=== PATIENT | female | born 1945 | race Caucasian/White ===

== ENCOUNTER 2018-04-17 10:16 | Inpatient (IN) ==
[2018-05-20] MEDS ORDERED: Sodium Phosphate Inj 30 MMOL in Sodium Chlor 0.9% Inj 250 ML IV.SIG PRN ×2
[2018-05-20] MEDS ORDERED: Potassium Phosphate Inj 30 MMOL in Sodium Chlor 0.9% Inj 250 ML IV.SIG ONE ×2
[2018-05-20] MEDS ORDERED: Magnesium Sulfate Inj 2 GM in Sodium Chlor 0.9% Inj 96 ML IV.SIG ONE ×2
[2018-05-20] MEDS ORDERED: Potassium Chlor 20 mEq Premix 20 MEQ/100 ML PIGGYBACK IV.SIG SCH ×2
[2018-05-20] MEDS ORDERED: Potassium Bicarbonate 25 MEQ Effervescent Tablet PO PRN
[2018-05-20] MEDS ORDERED: Magnesium Sulfate Inj 4 GM in Sodium Chlor 0.9% Inj 92 ML IV.SIG ONE ×2
[2018-05-20] MEDS ORDERED: Morphine Inj 4 MG/ML Vial IV.PUSH PRN
[2018-05-20] MEDS ORDERED: Naloxone Inj 0.4 MG/ML Vial IV.PUSH PRN
[2018-05-20] MEDS ORDERED: Labetalol HCl Inj 100 MG/20 ML Vial IV.PUSH PRN
[2018-05-20] MEDS ORDERED: Dextrose 50% in Water 50 ML Vial IV.PUSH PRN
[2018-05-20] MEDS ORDERED: Potassium Phosphate 500 MG Soluble Tablet PO PRN ×2
[2018-05-20] MEDS ORDERED: Magnesium Oxide 400 MG Tablet PO ONE
[2018-05-20] MEDS ORDERED: Bisacodyl 10 MG Supp RECTAL PRN
[2018-05-20] MEDS ORDERED: Metoprolol Inj 5 MG/5 ML Vial IV.PUSH PRN (00:01)
[2018-05-20] MEDS ORDERED: Haloperidol Inj 5 MG/ML Ampul IV.PUSH PRN (00:01)
[2018-05-20] MEDS: Potassium Phos/Sodium Phos 250 MG Tablet NG/OG SCH ×3 (05:17→22:12)
[2018-05-20] MEDS: dilTIAZem 60 MG Tablet PO SCH ×3 (05:18→20:09)
[2018-05-20 06:05] LABS: Baso # (Auto) 0.1 th/mm3 (0.0-0.2); Baso % (Auto) 0.9 % (0.0-2.0); Eos # (Auto) 0.4 th/mm3 (0.0-0.4); Hematocrit 28.8 % (35.0-46.0); Hemoglobin 9.6 gm/dL (11.6-15.3); Lymph # (Auto) 2.1 th/mm3 (1.0-4.8); Lymph % (Auto) 21.8 % (9.0-44.0); Mean Corpuscular HGB Conc 33.5 % (32.0-36.0); Mean Corpuscular Volume 92.6 fL (80.0-100.0); Mean Platelet Volume 7.7 fL (7.0-11.0); Mono # (Auto) 0.9 th/mm3 (0.0-0.9); Mono % (Auto) 9.2 % (0.0-8.0); Neut # (Auto) 6.1 th/mm3 (1.8-7.7); Neut % (Auto) 64.1 % (16.0-70.0); Platelet Count 290 th/mm3 (150-450); Red Blood Count 3.11 mil/mm3 (4.00-5.30); Red Cell Distribution Width 17.9 % (11.6-17.2); White Blood Count 9.6 th/mm3 (4.0-11.0)
[2018-05-20] MEDS: Levothyroxine 75 MCG Tablet PO SCH (06:23)
[2018-05-20 06:27] LABS: Albumin 1.5 g/dL (3.4-5.0); Anion Gap 9 meq/L (5-15); Aspartate Aminotransferase 16 U/L (15-37); Blood Urea Nitrogen 28 mg/dL (7-18); Calcium 7.9 mg/dL (8.5-10.1); Carbon Dioxide 34.4 meq/L (21.0-32.0); Chloride 100 meq/L (98-107); Glomerular Filtration Rate 40 mL/min (>89); Glucose,Random 134 mg/dL (74-106); Magnesium 1.6 mg/dL (1.5-2.5); Potassium 3.4 meq/L (3.5-5.1); Sodium 143 meq/L (136-145)
[2018-05-20 06:31] LABS: Alanine Aminotransferase 18 U/L (10-53); Alkaline Phosphatase 102 U/L (45-117); Phosphorus 2.1 mg/dL (2.5-4.9); Total Protein 5.3 g/dL (6.4-8.2)
[2018-05-20] MEDS: Metoprolol Tartrate 50 MG Tablet PO SCH ×2 (08:07→22:09)
[2018-05-20] MEDS: Nystatin 100,000 UNITS/GM Powder 15 GM Bottle TOPICAL SCH ×2 (08:08→22:10)
[2018-05-20] MEDS: Heparin - SQ 10,000 UNITS/ML Vial SQ SCH ×2 (08:10→22:10)
[2018-05-20 08:21] LABS: Eosinophils 4 % (0-4); Lymphocytes 13 % (9-44); Monocytes 13 % (0-8); Myelocytes 2 % (0-0)
[2018-05-20 08:22] LABS: Ovalocytes 1+; Platelet Estimate Normal (Normal); Platelet Morphology Normal (Normal)
[2018-05-20] MEDS: Insulin NovoLOG Aspart Correctional Sugar Inj SQ SCH ×4 (08:22→22:10)
[2018-05-20] MEDS ORDERED: buPROPion 150 MG 12 HR Tablet PO SCH (09:00)
[2018-05-20] MEDS ORDERED: QUEtiapine 25 MG Tablet PO PRN (09:00)
--- NOTE | 2018-05-20 10:35 | P.PNNEU ---
Subjective Subjective Comments: No acute events reported Active Medications: Active Medications Generic Name Dose Route Start Last Admin Trade Name Freq PRN Reason Stop Dose Admin Acetaminophen 650 mg 05/20/18 00:00 Tylenol PO Q4H PRN SEE LABEL COMMENTS Hydrocodone Bitart/Acetaminophen 1 tab 05/20/18 00:00 [place] 5/325 PO Q6H PRN PAIN 2 TO 5 Al Hydroxide/Mg Hydroxide 30 ml 05/20/18 00:00 Milk Of Magnesia Liq PO Q12H PRN MILD CONSTIPATION Albuterol 1 ampul 05/20/18 00:00 Duoneb Neb (Prn) NEB Q2HR NEB PRN SHORT OF BREATH Apixaban 5 mg 05/20/18 09:00 05/20/18 08:07 Eliquis PO 5 mg BID IAN Administration Bisacodyl 10 mg 05/20/18 00:00 Dulcolax Supp RECTAL Q24H PRN SEVERE CONSITIPATION Bupropion HCl 150 mg 05/20/18 09:00 Wellbutrin Sr PO DAILY IAN Buspirone HCl 5 mg 05/20/18 09:00 Buspar PO BID IAN Dextrose 50 ml 05/20/18 00:00 D50w Vial IV.PUSH UNSCH PRN PER HYPOGLYCEMIA PROTOCOL Diltiazem HCl 60 mg 05/20/18 00:00 05/20/18 05:18 Cardizem PO 60 mg Q6H IAN Administration Diphenhydramine HCl 25 mg 05/20/18 00:00 Benadryl PO Q4H PRN SEE LABEL COMMENTS Furosemide 40 mg 05/20/18 09:00 05/20/18 08:07 Lasix Inj IV.PUSH 40 mg DAILY IAN Administration Glucagon 1 mg 05/20/18 00:00 Glucagon Inj OTHER PRN PRN for Hypoglycemia Protocol Haloperidol Lactate 5 mg 05/20/18 00:01 Haldol Inj IV.PUSH Q1H PRN ANXIETY AND/OR AGITATION Heparin Sodium (Porcine) 5,000 units 05/20/18 09:00 05/20/18 08:10 Heparin Inj SQ 5,000 units BID IAN Administration Cefepime HCl 1,000 mg/ Sodium 100 mls @ 200 mls/hr 05/20/18 00:00 Chloride IV.SIG Q12H IAN Linezolid 300 mls @ 300 mls/hr 05/20/18 08:00 05/20/18 08:15 Zyvox 600 Mg Premix IV.SIG 05/23/18 19:59 300 mls/hr Q12H IAN Administration Sodium Phosphate 30 mmol/ 260 mls @ 43.333 mls/hr 05/20/18 00:00 Sodium Chloride IV.SIG UNSCH PRN SEE LABEL COMMENTS Insulin Aspart 0 unit 05/20/18 08:00 05/20/18 08:22 Novolog Insulin Suppl Scale Inj SQ 1 unit ACHS IAN Administration Protocol Labetalol HCl 10 mg 05/20/18 00:00 Trandate Inj IV.PUSH Q4H PRN HR > 110 , SBP > 110 Levothyroxine Sodium 75 mcg 05/20/18 07:00 05/20/18 06:23 Synthroid PO 75 mcg DAILY@0700 IAN Administration Metoprolol Tartrate 5 mg 05/20/18 00:01 Lopressor Inj IV.PUSH Q6H PRN FOR HR > 120 IF UNABLE PO Metoprolol Tartrate 50 mg 05/20/18 09:00 05/20/18 08:07 Lopressor PO 50 mg BID IAN Administration Montelukast Sodium 10 mg 05/20/18 21:00 Singulair PO HS IAN Morphine Sulfate 2 mg 05/20/18 00:00 Morphine Inj IV.PUSH Q4H PRN BREAKTHROUGH PAIN 6-10 Naloxone HCl 0.4 mg 05/20/18 00:00 Narcan Inj IV.PUSH UNSCH PRN SEE DOSE INSTRUCTIONS Nystatin 1 applicatio 05/20/18 09:00 05/20/18 08:08 Mycostatin Powder TOPICAL 1 applicatio Q12H IAN Administration Pantoprazole Sodium 40 mg 05/20/18 09:00 05/20/18 08:07 Protonix PO 40 mg DAILY IAN Administration Potassium Bicarbonate 50 meq 05/20/18 00:00 Effer-K PO UNSCH PRN Potassium 3.3-3.5 mEq/L Potassium Chloride 40 meq 05/20/18 00:00 Kcl 40 Meq/30 Ml Liq PO UNSCH PRN NEEDED Potassium Phos/Sodium Phos 250 mg 05/20/18 06:00 05/20/18 05:17 K-Phos Neutral NG/OG 250 mg Q8HR IAN Administration Potassium Phosphate 2,000 mg 05/20/18 00:00 K-Phos Original PO Q4H PRN Phosphorus Less Than 2.5 mg/dL Potassium Phosphate 2,000 mg 05/20/18 00:00 K-Phos Original PO UNSCH PRN NEEDED Quetiapine Fumarate 25 mg 05/20/18 09:00 Seroquel PO BID@0900,1200 PRN AGITATION AND/OR HALLUCINATION Quetiapine Fumarate 50 mg 05/20/18 21:00 Seroquel PO HS IAN Trazodone HCl 150 mg 05/20/18 21:00 Desyrel PO HS IAN Vitamin D 2,000 unit 05/20/18 09:00 05/20/18 08:06 Vitamin D3 PO 2,000 unit DAILY IAN Administration Ziprasidone 10 mg 05/20/18 00:00 Geodon Inj IM Q12H PRN AGITATION Allergies/Adverse Reactions: Allergies Allergy/AdvReac Type Severity Reaction Status Date / Time aspirin Allergy Severe wheezing, Verified 04/17/18 23:08 runny nose, watery eyes Shellfish Allergy Unknown Uncoded 04/17/18 23:04 Physical Exam Vital signs: Vital Signs 05/20/18 02:00 05/20/18 04:49 Pulse Rate 98 H Pulse Oximetry 96 Intake & Output 05/19/18 05/20/18 05/20/18 18:59 06:59 18:59 Other: Date of Last Bowel Movement 05/20/18 Narrative: awake alert follows commands names my glasses moves all 4 ext well Objective Laboratory Results - last 24 hr 05/16/18 05/16/18 05/17/18 13:30 14:30 05:32 WBC RBC Hgb Hct MCV MCH MCHC RDW Plt Count MPV Prelim Diff (Auto) Neut % (Auto) Lymph % (Auto) [place] % (Auto) Eos % (Auto) Baso % (Auto) Neut # (Auto) Lymph # (Auto) [place] # (Auto) Eos # (Auto) Baso # (Auto) CBC Comment WBC Differential Total Counted Neutrophils % (Manual) Seg Neuts % (Manual) Band Neutrophils % Band Neuts % (Manual) Lymphocytes % Lymphocytes % (Manual) Monocytes % Monocytes % (Manual) Eosinophils % Eosinophils % (Manual) Myelocytes % (Man) Neutrophils # (Manual) Abs Neuts (Manual) Metamyelocytes Myelocytes Differential Comment Platelet Estimate Platelet Morphology Plt Morphology Comment Ovalocytes Puncture Site Patient Temperature HCO3 Base Excess O2 Saturation ABG pH ABG pCO2 ABG pO2 ABG O2 Content ABG Carboxyhemoglobin ABG Methemoglobin Hemoglobin O2 Delivery Device Liter Flow Vent Setting Inspired O2 Sodium 146 H Potassium 3.4 L D Chloride 106 Carbon Dioxide 30.0 Anion Gap 10 BUN 26 H Creatinine 1.22 H Estimated GFR 44 L POC Glucose Random Glucose 132 H Calcium 7.7 L Phosphorus Magnesium Total Bilirubin AST ALT Alkaline Phosphatase Ammonia Total Protein Albumin Vitamin B12 Free T4 1.04 Free T3 pg/dL 1.26 L TSH 3rd Generation 27.500 H Urine Color YELLOW Urine Turbidity TURBID Urine pH 5.0 Ur Specific [place] 1.020 Urine Protein 100 H Urine Glucose (UA) NEG Urine Ketones NEG Urine Occult Blood MOD H Urine Nitrite NEG Urine Bilirubin NEG Urine Urobilinogen 2.0 H Ur Leukocyte Esterase MOD H Urine RBC 74 H Urine WBC Urine WBC Clumps MANY H Ur Squamous Epith Cells 4 Ur Transition Epith Cell 3 Urine Bacteria MANY H Urine Yeast (Budding) MOD H Micro UA Comment CULTURE INDICATED 05/18/18 05/18/18 05/18/18 00:41 07:12 07:12 WBC 12.8 H RBC 3.19 L Hgb 9.6 L Hct 30.1 L MCV 94.3 MCH 30.1 MCHC 31.9 L RDW 18.2 H Plt Count 283 MPV 7.4 Prelim Diff (Auto) Neut % (Auto) 80.3 H Lymph % (Auto) 11.1 [place] % (Auto) 6.1 Eos % (Auto) 2.1 Baso % (Auto) 0.4 Neut # (Auto) 10.3 H Lymph # (Auto) 1.4 [place] # (Auto) 0.8 Eos # (Auto) 0.3 Baso # (Auto) 0.1 CBC Comment AUTO DIFF WBC Differential Total Counted 100 Neutrophils % (Manual) 86 H Seg Neuts % (Manual) Band Neutrophils % 1 Band Neuts % (Manual) Lymphocytes % 6 L Lymphocytes % (Manual) Monocytes % 3 Monocytes % (Manual) Eosinophils % 3 Eosinophils % (Manual) Myelocytes % (Man) Neutrophils # (Manual) 11.3 H Abs Neuts (Manual) Metamyelocytes Myelocytes 1 H Differential Comment FINAL DIFF MANUAL Platelet Estimate NORMAL Platelet Morphology Plt Morphology Comment NORMAL Ovalocytes Puncture Site RT RADIAL Patient Temperature 98.6 HCO3 31 H Base Excess 6.6 H O2 Saturation 95 ABG pH 7.41 ABG pCO2 50 H ABG pO2 87 ABG O2 Content 12.6 ABG Carboxyhemoglobin 1.2 ABG Methemoglobin 1.1 Hemoglobin 9.4 L O2 Delivery Device BiPAP Liter Flow Vent Setting 16 IPAP/8 EPAP Inspired O2 35 Sodium 145 Potassium 3.6 Chloride 104 Carbon Dioxide 34.0 H Anion Gap 7 BUN 29 H Creatinine 1.37 H Estimated GFR 38 L POC Glucose Random Glucose 118 H Calcium 7.9 L Phosphorus 2.1 L Magnesium 1.6 Total Bilirubin 0.3 AST 13 L ALT 16 Alkaline Phosphatase 109 Ammonia Total Protein 5.3 L Albumin 1.5 L Vitamin B12 Free T4 Free T3 pg/dL TSH 3rd Generation Urine Color Urine Turbidity Urine pH Ur Specific [place] Urine Protein Urine Glucose (UA) Urine Ketones Urine Occult Blood Urine Nitrite Urine Bilirubin Urine Urobilinogen Ur Leukocyte Esterase Urine RBC Urine WBC Urine WBC Clumps Ur Squamous Epith Cells Ur Transition Epith Cell Urine Bacteria Urine Yeast (Budding) Micro UA Comment 05/18/18 05/19/18 05/19/18 21:20 03:55 03:55 WBC 10.3 RBC 2.95 L Hgb 9.1 L Hct 27.4 L MCV 93.0 MCH 30.8 MCHC 33.1 RDW 17.8 H Plt Count 253 MPV 7.5 Prelim Diff (Auto) Neut % (Auto) 72.5 H Lymph % (Auto) 16.8 [place] % (Auto) 7.0 Eos % (Auto) 2.8 Baso % (Auto) 0.9 Neut # (Auto) 7.5 Lymph # (Auto) 1.7 [place] # (Auto) 0.7 Eos # (Auto) 0.3 Baso # (Auto) 0.1 CBC Comment AUTO DIFF WBC Differential Total Counted 100 Neutrophils % (Manual) 80 H Seg Neuts % (Manual) Band Neutrophils % Band Neuts % (Manual) Lymphocytes % 11 Lymphocytes % (Manual) Monocytes % 4 Monocytes % (Manual) Eosinophils % 1 Eosinophils % (Manual) Myelocytes % (Man) Neutrophils # (Manual) 8.7 H Abs Neuts (Manual) Metamyelocytes 1 Myelocytes 3 H Differential Comment FINAL DIFF MANUAL Platelet Estimate NORMAL Platelet Morphology Plt Morphology Comment NORMAL Ovalocytes Puncture Site Patient Temperature HCO3 Base Excess O2 Saturation ABG pH ABG pCO2 ABG pO2 ABG O2 Content ABG Carboxyhemoglobin ABG Methemoglobin Hemoglobin O2 Delivery Device Liter Flow Vent Setting Inspired O2 Sodium 144 Potassium 3.6 Chloride 102 Carbon Dioxide 34.7 H Anion Gap 7 BUN 31 H Creatinine 1.38 H Estimated GFR 38 L POC Glucose Random Glucose 102 Calcium 7.7 L Phosphorus 1.5 L Magnesium 1.4 L Total Bilirubin AST ALT Alkaline Phosphatase Ammonia 24 Total Protein Albumin Vitamin B12 Free T4 Free T3 pg/dL TSH 3rd Generation Urine Color Urine Turbidity Urine pH Ur Specific [place] Urine Protein Urine Glucose (UA) Urine Ketones Urine Occult Blood Urine Nitrite Urine Bilirubin Urine Urobilinogen Ur Leukocyte Esterase Urine RBC Urine WBC Urine WBC Clumps Ur Squamous Epith Cells Ur Transition Epith Cell Urine Bacteria Urine Yeast (Budding) Micro UA Comment 05/19/18 05/19/18 05/19/18 10:45 12:10 12:10 WBC RBC Hgb Hct MCV MCH MCHC RDW Plt Count MPV Prelim Diff (Auto) Neut % (Auto) Lymph % (Auto) [place] % (Auto) Eos % (Auto) Baso % (Auto) Neut # (Auto) Lymph # (Auto) [place] # (Auto) Eos # (Auto) Baso # (Auto) CBC Comment WBC Differential Total Counted Neutrophils % (Manual) Seg Neuts % (Manual) Band Neutrophils % Band Neuts % (Manual) Lymphocytes % Lymphocytes % (Manual) Monocytes % Monocytes % (Manual) Eosinophils % Eosinophils % (Manual) Myelocytes % (Man) Neutrophils # (Manual) Abs Neuts (Manual) Metamyelocytes Myelocytes Differential Comment Platelet Estimate Platelet Morphology Plt Morphology Comment Ovalocytes Puncture Site LT RADIAL Patient Temperature 98.6 HCO3 35 H Base Excess 10.8 H O2 Saturation 92 ABG pH 7.49 H ABG pCO2 47 H ABG pO2 67 ABG O2 Content 12.6 ABG Carboxyhemoglobin 1.2 ABG Methemoglobin 1.1 Hemoglobin 9.7 L O2 Delivery Device NASAL [place]ULA Liter Flow 4 Vent Setting Inspired O2 Sodium Potassium Chloride Carbon Dioxide Anion Gap BUN Creatinine Estimated GFR POC Glucose Random Glucose Calcium Phosphorus Magnesium Total Bilirubin AST ALT Alkaline Phosphatase Ammonia 35 H Total Protein Albumin Vitamin B12 681 Free T4 Free T3 pg/dL TSH 3rd Generation Urine Color Urine Turbidity Urine pH Ur Specific [place] Urine Protein Urine Glucose (UA) Urine Ketones Urine Occult Blood Urine Nitrite Urine Bilirubin Urine Urobilinogen Ur Leukocyte Esterase Urine RBC Urine WBC Urine WBC Clumps Ur Squamous Epith Cells Ur Transition Epith Cell Urine Bacteria Urine Yeast (Budding) Micro UA Comment 05/20/18 05/20/18 05/20/18 04:38 04:38 08:17 WBC 9.6 RBC 3.11 L Hgb 9.6 L Hct 28.8 L MCV 92.6 MCH 31.0 MCHC 33.5 RDW 17.9 H Plt Count 290 MPV 7.7 Prelim Diff (Auto) Slide review pending Neut % (Auto) 64.1 Lymph % (Auto) 21.8 [place] % (Auto) 9.2 H Eos % (Auto) 4.0 Baso % (Auto) 0.9 Neut # (Auto) 6.1 Lymph # (Auto) 2.1 [place] # (Auto) 0.9 Eos # (Auto) 0.4 Baso # (Auto) 0.1 CBC Comment WBC Differential Manual diff final Total Counted Neutrophils % (Manual) Seg Neuts % (Manual) 66 Band Neutrophils % Band Neuts % (Manual) 2 Lymphocytes % Lymphocytes % (Manual) 13 Monocytes % Monocytes % (Manual) 13 H Eosinophils % Eosinophils % (Manual) 4 Myelocytes % (Man) 2 H Neutrophils # (Manual) Abs Neuts (Manual) 6.7 Metamyelocytes Myelocytes Differential Comment . Platelet Estimate Normal Platelet Morphology Normal Plt Morphology Comment Ovalocytes 1+ H Puncture Site Patient Temperature HCO3 Base Excess O2 Saturation ABG pH ABG pCO2 ABG pO2 ABG O2 Content ABG Carboxyhemoglobin ABG Methemoglobin Hemoglobin O2 Delivery Device Liter Flow Vent Setting Inspired O2 Sodium 143 Potassium 3.4 L Chloride 100 Carbon Dioxide 34.4 H Anion Gap 9 BUN 28 H Creatinine 1.31 H Estimated GFR 40 L POC Glucose 165 H Random Glucose 134 H Calcium 7.9 L Phosphorus 2.1 L Magnesium 1.6 Total Bilirubin 0.2 AST 16 ALT 18 Alkaline Phosphatase 102 Ammonia Total Protein 5.3 L Albumin 1.5 L Vitamin B12 Free T4 Free T3 pg/dL TSH 3rd Generation Urine Color Urine Turbidity Urine pH Ur Specific [place] Urine Protein Urine Glucose (UA) Urine Ketones Urine Occult Blood Urine Nitrite Urine Bilirubin Urine Urobilinogen Ur Leukocyte Esterase Urine RBC Urine WBC Urine WBC Clumps Ur Squamous Epith Cells Ur Transition Epith Cell Urine Bacteria Urine Yeast (Budding) Micro UA Comment Review/Management - Review/Management Plan: imp b12 mri eeg ok old small left cbllr cva with hx of afib should be anticoagulated by med team iris correct chemistry sedatives held looks fine neurowise i will sign off
--- NOTE | 2018-05-20 10:36 | P.PNID ---
Subjective Remarks: This is a 72-year-old white female who was admitted to the hospital on 2017 with hypoglycemia. The patient reportedly had a glucose of 15 on arrival of EMS to attend to her. She reportedly was moaning pain as well when she was admitted through the Emergency department. The patient reportedly was on hospice care at home and that was revoked by her family members. She has been attended to by various specialties during this hospitalization. This includes endocrinology,pulmonary, nephrology, cardiology , and also critical care. The patient more recently has been very lethargic. Urine culture was performed on 05/10/2018 and came back with Enterococcus faecium VRE. The patient received ceftriaxone from 04/18-05/04. She was put on linezolid on 05/16/2018. Repeat urine culture was obtained and now has growth of Pseudomonas aeruginosa. Her white count today is 12.8. Previous to that, the white count was normal between 05/05 and today. The last temperature elevation was 100.3 degrees on 05/16/2018. She is currently afebrile. The patient does not open eyes or awaken to me. She is somnolent and does not make any attempt to respond. Chest x-ray on 05/16/2018 showed cardiomegaly with bibasilar airspace disease and probable pleural effusions. The patient has a Frias catheter in place, which has cloudy sediment. Notes reviewed Afebrile More awake, responding UC with PSAE And E faecium, not VRE Creatinine elevated WBC normal Frequent loose stool, C diff negative Frias placed 05/10 Antibiotics: Cefepime Zosyn Lines: No evidence of infection Past Medical History: Hypothyroidism, hypertension, gastroesophageal reflux disease, depression, arthritis, atrial fibrillation, cataract surgery, knee surgery, , and endometrial hyperplasia. Allergies/Adverse Reactions: Allergies aspirin Allergy (Severe, Verified 04/17/18 23:08) wheezing, runny nose, watery eyes Shellfish Allergy (Unknown, Uncoded 04/17/18 23:04) Objective Vital Signs 05/20/18 02:00 05/20/18 04:49 Pulse Rate 98 H Pulse Oximetry 96 Intake & Output 05/19/18 05/20/18 05/20/18 18:59 06:59 18:59 Other: Date of Last Bowel Movement 05/20/18 Lab - Hematology Results 05/18/18 05/19/18 05/20/18 07:12 03:55 04:38 WBC 12.8 H 10.3 9.6 RBC 3.19 L 2.95 L 3.11 L Hgb 9.6 L 9.1 L 9.6 L Hct 30.1 L 27.4 L 28.8 L MCV 94.3 93.0 92.6 MCH 30.1 30.8 31.0 MCHC 31.9 L 33.1 33.5 RDW 18.2 H 17.8 H 17.9 H Plt Count 283 253 290 MPV 7.4 7.5 7.7 Prelim Diff (Auto) Slide review pending Neut % (Auto) 80.3 H 72.5 H 64.1 Lymph % (Auto) 11.1 16.8 21.8 [place] % (Auto) 6.1 7.0 9.2 H Eos % (Auto) 2.1 2.8 4.0 Baso % (Auto) 0.4 0.9 0.9 Neut # (Auto) 10.3 H 7.5 6.1 Lymph # (Auto) 1.4 1.7 2.1 [place] # (Auto) 0.8 0.7 0.9 Eos # (Auto) 0.3 0.3 0.4 Baso # (Auto) 0.1 0.1 0.1 CBC Comment AUTO DIFF AUTO DIFF WBC Differential Manual diff final Total Counted 100 100 Neutrophils % (Manual) 86 H 80 H Seg Neuts % (Manual) 66 Band Neutrophils % 1 Band Neuts % (Manual) 2 Lymphocytes % 6 L 11 Lymphocytes % (Manual) 13 Monocytes % 3 4 Monocytes % (Manual) 13 H Eosinophils % 3 1 Eosinophils % (Manual) 4 Myelocytes % (Man) 2 H Neutrophils # (Manual) 11.3 H 8.7 H Abs Neuts (Manual) 6.7 Metamyelocytes 1 Myelocytes 1 H 3 H Differential Comment FINAL DIFF MANUAL FINAL DIFF MANUAL . Platelet Estimate NORMAL NORMAL Normal Platelet Morphology Normal Plt Morphology Comment NORMAL NORMAL Ovalocytes 1+ H Lab - Chemistry Results 05/16/18 05/17/18 05/18/18 13:30 05:32 07:12 Sodium 146 H 145 Potassium 3.4 L D 3.6 Chloride 106 104 Carbon Dioxide 30.0 34.0 H Anion Gap 10 7 BUN 26 H 29 H Creatinine 1.22 H 1.37 H Estimated GFR 44 L 38 L POC Glucose Random Glucose 132 H 118 H Calcium 7.7 L 7.9 L Phosphorus 2.1 L Magnesium 1.6 Total Bilirubin 0.3 AST 13 L ALT 16 Alkaline Phosphatase 109 Ammonia Total Protein 5.3 L Albumin 1.5 L Vitamin B12 Free T4 1.04 Free T3 pg/dL 1.26 L TSH 3rd Generation 27.500 H 05/18/18 05/19/18 05/19/18 21:20 03:55 12:10 Sodium 144 Potassium 3.6 Chloride 102 Carbon Dioxide 34.7 H Anion Gap 7 BUN 31 H Creatinine 1.38 H Estimated GFR 38 L POC Glucose Random Glucose 102 Calcium 7.7 L Phosphorus 1.5 L Magnesium 1.4 L Total Bilirubin AST ALT Alkaline Phosphatase Ammonia 24 Total Protein Albumin Vitamin B12 681 Free T4 Free T3 pg/dL TSH 3rd Generation 05/19/18 05/20/18 05/20/18 12:10 04:38 08:17 Sodium 143 Potassium 3.4 L Chloride 100 Carbon Dioxide 34.4 H Anion Gap 9 BUN 28 H Creatinine 1.31 H Estimated GFR 40 L POC Glucose 165 H Random Glucose 134 H Calcium 7.9 L Phosphorus 2.1 L Magnesium 1.6 Total Bilirubin 0.2 AST 16 ALT 18 Alkaline Phosphatase 102 Ammonia 35 H Total Protein 5.3 L Albumin 1.5 L Vitamin B12 Free T4 Free T3 pg/dL TSH 3rd Generation Imaging: Last Impressions Chest X-Ray 05/16/18 Signed Impressions: CONCLUSION: Cardiomegaly with bibasilar airspace disease and probable pleural effusions. Head CT 05/14/18 Signed Impressions: CONCLUSION: Negative for acute process Abdomen X-Ray 05/14/18 0000 Signed Impressions: CONCLUSION: Nonspecific abdominal image without bowel dilatation seen. NG tube tip in the stomach. Increased density at the lower lungs bilaterally likely related to effusions wi th some degree of accompanying atelectasis and/or consolidation. Renal Ultrasound 04/18/18 0000 Signed Impressions: CONCLUSION: 1. Limited exam, negative for mass or hydronephrosis. Physical Exam: GENERAL: This is a morbidly obese female, awake, and responding, NAD HEENT: The head is atraumatic. Extraocular movements are grossly intact. Pupils reactive to light. Oropharyngeal mucosa is dry. No thrush. NECK: No adenopathy. The neck is obese. LUNGS: Decreased breath sounds throughout. HEART: Irregular rate and rhythm without murmurs, rubs or gallops. ABDOMEN: Obese, decreased bowel sounds. No tenderness appreciated. No palpable mass. EXTREMITIES: No clubbing. No clubbing, cyanosis or edema. SKIN: No rash. Several scabbed lesions including one on the anterior chest and one on the dorsum of the right hand. NEUROLOGIC: awake and responding PSYCHIATRIC: calm LINE: NO evidence of infection Assessment and Plan - Plan IMPRESSION: 1. Urinary tract infection due to Pseudomonas aeruginosa and E faecium - not VRE this time, but R to AMpicillin 2. Altered mental status, better 3. Hypercapnic respiratory failure. 4. Acute kidney disease. 5. Morbid obesity. 6. The patient is currently FULL CODE. RECOMMENDATIONS: Continue cefepime for Pseudomonas coverage Continue Zyvox Follow CBC Monitor progress Monitor mental status Spoke with son
--- NOTE | 2018-05-20 14:05 | P.PNIM ---
Subjective Interval history: Deferred entry, the patient has been seen at 10:30 Am Patient is more awake. On 3 liters nasal canula. Afebrile. tolerating tube feeding. Able to Physical Exam Vital signs: Vital Signs 05/20/18 02:00 05/20/18 04:49 05/20/18 07:50 Pulse Rate 98 H Pulse Oximetry 96 96 Intake & Output 05/19/18 05/20/18 05/20/18 18:59 06:59 18:59 Intake Total 300 / 300 Balance 300 / 300 Intake: IV 300 / 300 Zyvox 600 mg Premix 300 ML @ 300 / 300 300 mls/hr IV.SIG Q12H IAN Rx#: [id number] Other: Date of Last Bowel Movement 05/20/18 Narrative: GENERAL: Awake however still confused. Not in respiratory distress. SKIN: Warm and dry. HEAD: Normocephalic. EYES: No scleral icterus. No injection or drainage. NECK: Supple, trachea midline. No JVD or lymphadenopathy. CARDIOVASCULAR: Irregularly irregular without murmur rubs or gallops. RESPIRATORY: Decreased breath sounds bilaterally. No rales, rhonchi or wheezing auscultated. GASTROINTESTINAL: Morbidly obese abdomen. Abdomen soft, non-tender, nondistended. MUSCULOSKELETAL: No cyanosis, + non pitting edema in BL lower extremities. BACK: Nontender without obvious deformity. No CVA tenderness. Results - Labs CBC & Chem 7: 05/20/18 04:38 05/20/18 04:38 Labs: Laboratory Results - last 12 hr 05/20/18 05/20/18 05/20/18 04:38 04:38 08:17 WBC 9.6 RBC 3.11 L Hgb 9.6 L Hct 28.8 L MCV 92.6 MCH 31.0 MCHC 33.5 RDW 17.9 H Plt Count 290 MPV 7.7 Prelim Diff (Auto) Slide review pending Neut % (Auto) 64.1 Lymph % (Auto) 21.8 Walsh % (Auto) 9.2 H Eos % (Auto) 4.0 Baso % (Auto) 0.9 Neut # (Auto) 6.1 Lymph # (Auto) 2.1 Walsh # (Auto) 0.9 Eos # (Auto) 0.4 Baso # (Auto) 0.1 WBC Differential Manual diff final Seg Neuts % (Manual) 66 Band Neuts % (Manual) 2 Lymphocytes % (Manual) 13 Monocytes % (Manual) 13 H Eosinophils % (Manual) 4 Myelocytes % (Man) 2 H Abs Neuts (Manual) 6.7 Differential Comment . Platelet Estimate Normal Platelet Morphology Normal Ovalocytes 1+ H Sodium 143 Potassium 3.4 L Chloride 100 Carbon Dioxide 34.4 H Anion Gap 9 BUN 28 H Creatinine 1.31 H Estimated GFR 40 L POC Glucose 165 H Random Glucose 134 H Calcium 7.9 L Phosphorus 2.1 L Magnesium 1.6 Total Bilirubin 0.2 AST 16 ALT 18 Alkaline Phosphatase 102 Total Protein 5.3 L Albumin 1.5 L 05/20/18 12:39 WBC RBC Hgb Hct MCV MCH MCHC RDW Plt Count MPV Prelim Diff (Auto) Neut % (Auto) Lymph % (Auto) Walsh % (Auto) Eos % (Auto) Baso % (Auto) Neut # (Auto) Lymph # (Auto) Walsh # (Auto) Eos # (Auto) Baso # (Auto) WBC Differential Seg Neuts % (Manual) Band Neuts % (Manual) Lymphocytes % (Manual) Monocytes % (Manual) Eosinophils % (Manual) Myelocytes % (Man) Abs Neuts (Manual) Differential Comment Platelet Estimate Platelet Morphology Ovalocytes Sodium Potassium Chloride Carbon Dioxide Anion Gap BUN Creatinine Estimated GFR POC Glucose 164 H Random Glucose Calcium Phosphorus Magnesium Total Bilirubin AST ALT Alkaline Phosphatase Total Protein Albumin - Imaging Imaging: Chest x-ray on 05/16/18 shows cardiomegaly with bibasilar airspace disease and probable pleural effusions. Assessment and Plan - Plan 72 yrs old female with 1. Acute renal failure Creatinine on admission 2.33. Upon review of records creatinine 0.94 on December 2017. Nonoliguric, status post treatment with IV fluids and improvement in renal indices. Nephrology consulted. Nephrology has signed off. 2. Hypernatremia Hyponatremia has resolved. Continue to monitor BMP. 3. Pseudomonas UTI. Initially the patient was started empirically on Zyvox IV since the patient has had a previous urine culture of pseudomonas aeruginosa. ID consulted. The patient has been started on IV cefepime. Continue as per ID recommendations. Mental status seems to be improving. 4. Acute diastolic CHF exacerbation. 2D ECHO with normal EF 50% and with left ventricular hypertrophy, patient with diastolic dysfunction. Chest x-ray obtained on shows cardiomegaly with bilateral pleural effusions. Initially Lasix was held due to borderline hypotension. Lasix 40 mg IV twice daily resumed on 05/17. 05/20 Continue Lasix IV. Monitor strict I's and O's, daily weights. Afib with RVR- rate controlled Continue metoprolol and Cardizem per NGT 2D ECHO with EF 50%,LV hypertrophy. Cardiology consulted. Acute hypercapnic hypoxemic respiratory failure was placed on BiPAP. Probably Pickwickian syndrome Pulmonary Infiltrate Continue BiPAP HS. Appreciate input Pulmonary Medicine Bronchodilators ABG obtained on 05/18 showed a PCO2 of 58 and a PO2 of 87. Will repeat ABG. BiPAP at night. As per RN report the patient is refusing BiPAP. Patient still on 4 L nasal cannula. Keep supplemental oxygen to keep oxygen saturation more than 92%. Hypoglycemia on admission. Resolved Hypothyroidism. Patient was on levothyroxine 25 mcg p.o. daily. TSH was very elevated at 27.5 with a normal free T4 and a low T3. Levothyroxine now at 75 mcg p.o. daily. Continue. Patient will need recheck of TSH free T3 and free T4 in 4-6 weeks. T2DDM holding home medications Currently on Low insulin sliding scale. Monitor blood sugar. Suicidal intent Patient was initially under a Wasserman act. Psychiatry evaluated patient and lifted the Wasserman act. She does not meet criteria for involuntary psychiatric admissions as per psychiatric recommendations. Encephalopathy Patient noted to be very lethargic. Head CT reviewed by me negative for acute process. Patient was on Seroquel, Geodon and trazodone which all were discontinued secondary to encephalopathy. Encephalopathy possibly a combination of metabolic and toxic encephalopathy given the presence of UTI and several sedating medications that were discontinued. Patient will also need BiPAP at night to manage elevated CO2. 05/20 repeat ABG shows downtrending PCO2. Patient's encephalopathy seems to be resolving. Consult physical therapy. Generalized pain -patient with history of arthritis pain Management Anemia of chronic disease Transfused 2U pRBC Monitor H/H and transfuse if HGB < 7 or if symptomatic Cutaneous candidiasis. On nystatin powder. Continue with Diflucan until April Poor po intake - - NGT placed 05/13 - start tube feedings - increase to goal rate -d/w staff nurse- tolerating 7/1 Initially patient was n.p.o. However, she has past. Dysphagia eval. I will start the patient on a diet and if she tolerates it then will remove NG tube. DVT prophylaxis Lovenox 30 mg subcu every 24 hours Palliative care ff - son wants aggressive treatment- will place NGT for meds and tube feedings route Code Status: Full code Discussed Condition With: dispatcher service Planning: Pending clinical improvement. Okay to transfer to the medical floor.
[2018-05-20] MEDS ORDERED: Mag Sulf 1 gm/100 ml Premix 100 ML IV.SIG ONE (14:26)
[2018-05-20] MEDS ORDERED: QUEtiapine 25 MG Tablet PO SCH (21:00)
[2018-05-20] MEDS: traZODone 100 MG Tablet PO SCH (22:09)
[2018-05-20] MEDS: Montelukast 10 MG Tablet PO SCH (22:11)
[2018-05-21] MEDS: dilTIAZem 60 MG Tablet PO SCH ×5 (00:32→17:53)
[2018-05-21] MEDS: Potassium Phos/Sodium Phos 250 MG Tablet NG/OG SCH ×3 (05:33→21:46)
[2018-05-21] MEDS: Levothyroxine 75 MCG Tablet PO SCH (06:03)
[2018-05-21 06:54] LABS: Baso # (Auto) 0.1 th/mm3 (0.0-0.2); Baso % (Auto) 0.6 % (0.0-2.0); Eos # (Auto) 0.5 th/mm3 (0.0-0.4); Eos % (Auto) 5.2 % (0.0-4.0); Hematocrit 31.1 % (35.0-46.0); Hemoglobin 10.4 gm/dL (11.6-15.3); Lymph # (Auto) 2.1 th/mm3 (1.0-4.8); Lymph % (Auto) 21.5 % (9.0-44.0); Mean Corpuscular HGB Conc 33.4 % (32.0-36.0); Mean Corpuscular Volume 92.6 fL (80.0-100.0); Mean Platelet Volume 8.1 fL (7.0-11.0); Mono # (Auto) 0.9 th/mm3 (0.0-0.9); Mono % (Auto) 9.7 % (0.0-8.0); Platelet Count 264 th/mm3 (150-450); Red Blood Count 3.36 mil/mm3 (4.00-5.30); White Blood Count 9.6 th/mm3 (4.0-11.0)
[2018-05-21 07:08] LABS: Anion Gap 12 meq/L (5-15)
[2018-05-21 07:45] LABS: Alanine Aminotransferase 20 U/L (10-53); Albumin 1.6 g/dL (3.4-5.0); Alkaline Phosphatase 83 U/L (45-117); Aspartate Aminotransferase 20 U/L (15-37); Blood Urea Nitrogen 28 mg/dL (7-18); Calcium 8.5 mg/dL (8.5-10.1); Carbon Dioxide 31.2 meq/L (21.0-32.0); Chloride 96 meq/L (98-107); Glomerular Filtration Rate 46 mL/min (>89); Glucose,Random 97 mg/dL (74-106); Magnesium 1.8 mg/dL (1.5-2.5); Phosphorus 3.3 mg/dL (2.5-4.9); Potassium 3.5 meq/L (3.5-5.1); Sodium 139 meq/L (136-145); Total Protein 5.5 g/dL (6.4-8.2)
--- NOTE | 2018-05-21 07:51 | MG ---
cc: Armand Michele MD DATE: 05/20/2018. EEG NUMBER: [id number] INDICATION: On BiPAP, obtunded female, on antibiotics. DESCRIPTION: A 10 Hz diffuse rhythm is seen, but almost looks spindle like is noted bilaterally. Some delta slowing is occasionally noted diffusely. A lot of theta slowing is seen. Photic stimulation is performed without significant posterior driving. Hyperventilation not performed. IMPRESSION: Diffuse slowing consistent with a mild to moderate diffuse encephalopathy. I did not notice any focal abnormality. No seizure activity was seen. Armand Michele MD DJM/TL , 10:08 AM , 10:24 AM
[2018-05-21] MEDS: Metoprolol Tartrate 50 MG Tablet PO SCH ×2 (08:50→21:45)
[2018-05-21 08:51] LABS: Eosinophils 6 % (0-4); Lymphocytes 30 % (9-44); Monocytes 7 % (0-8); Myelocytes 3 % (0-0)
[2018-05-21 08:52] LABS: Platelet Estimate Normal (Normal); Platelet Morphology Normal (Normal)
[2018-05-21] MEDS: Heparin - SQ 10,000 UNITS/ML Vial SQ SCH ×2 (08:55→21:47)
[2018-05-21] MEDS: Insulin NovoLOG Aspart Correctional Sugar Inj SQ SCH ×4 (09:07→21:46)
[2018-05-21] MEDS: Nystatin 100,000 UNITS/GM Powder 15 GM Bottle TOPICAL SCH ×2 (09:12→21:45)
--- NOTE | 2018-05-21 12:35 | P.PNWCN ---
Wound Care Nurse Consult Description: Wound consult ordered by for wound management. Communicated with: Jamie WOO, Recommendation: 1. Reposition patient every 2 hours for comfort and offloading. 2. Cleanse pannus and all other skin fold with remedy soft cloth barriers wipes then apply thin even layer of remedy antifungal powder BID or as needed for moisture control. 3. Apply skin prep to intact bulla on left foot BID Additional information: Patient was seen today by designer writer for wound management.Patient alert in bed with son and present at bedside.Patient currently on Airrepy surface with pump set on 1000lbs.Legal Collector reset pump to patient current weight parameters.Patient noted to have intact bulla located on left foot just distal to 1-3 digits.skin prep applied and left open to air.Patient is morbidly obese with moisture/fungal denuded areas located in multiple skin folds of back,pannus ,groin.Remedy antifungal powder applied in thin even layer.Patient refused for designer writer to reposition her on side .Son sitting at bedside upon designer writer departure. Wound/Pressure Injury - Wound Skin Folds Wound Type: Maceration Is This a Chronic Wound: Yes Requested from Provider a Wound Care Consult: No Wound Bed Appearance: Red Drainage Amount: None Dressing Status: Open to Air Cleansing Solution: Saline Left Foot Wound Type: Blister Is This a Chronic Wound: Yes Wound Bed Appearance: Blisters - Intact Primary Dressing: open to air Sacrum Wound Type: Abrasion Left Chest Wound Type: Blister
--- NOTE | 2018-05-21 13:24 | P.PNIM ---
Subjective Interval history: Patient has no acute complaints today. No chest pain. No nausea or vomiting. No diarrhea. Physical Exam Vital signs: Vital Signs 05/20/18 14:00 05/20/18 15:00 05/20/18 16:00 Temperature 98.6 F Pulse Rate 87 93 H 103 H Respiratory Rate Blood Pressure 120/71 114/76 132/60 Pulse Oximetry 100 97 93 L 05/20/18 17:00 05/20/18 18:00 05/20/18 19:00 Temperature Pulse Rate 94 H 89 88 Respiratory Rate Blood Pressure 115/63 113/75 115/66 Pulse Oximetry 98 92 L 98 05/20/18 20:30 05/20/18 22:16 05/21/18 00:00 Temperature 98.8 F 98.2 F Pulse Rate 93 H 100 H Respiratory Rate 22 22 Blood Pressure 110/59 L 115/71 Pulse Oximetry 98 98 94 L 05/21/18 04:00 05/21/18 04:35 Temperature 98.2 F Pulse Rate 107 H 112 H Respiratory Rate 22 Blood Pressure 111/57 L Pulse Oximetry 95 Intake & Output 05/20/18 05/21/18 05/21/18 18:59 06:59 18:59 Intake Total 400 / 400 1264 / 1264 Output Total 1950 / 1950 Balance 400 / 400 -686 / -686 Weight 156.7 kg Intake: IV 400 / 400 400 / 400 Maxipime Inj 1,000 MG In NS Inj 100 / 100 100 ML @ 200 mls/hr IV.SIG Q12H IAN Rx#:[id number] Zyvox 600 mg Premix 300 ML @ 300 / 300 300 / 300 300 mls/hr IV.SIG Q12H IAN Rx#: [id number] Magnesium Sulfate 1 gm/D5W 100 100 / 100 ml Premix 100 ML @ 100 mls/hr IV.SIG ONCE ONE Rx#:[id number] Oral 200 / 200 Tube Feeding 544 / 544 Tube Irrigant 120 / 120 Output: Urine 400 / 400 Urine Amount (Catheter) 1550 / 1550 Indwelling Urethral Catheter 1550 / 1550 Other: Date of Last Bowel Movement 05/20/18 05/20/18 # Bowel Movements 2 - Routine HEENT Exam Comments: GENERAL: NAD, A&Ox1 HEAD: Normocephalic. NECK: Supple, trachea midline. No lymphadenopathy. EYES: No scleral icterus. No injection or drainage. CARDIOVASCULAR: Regular rate and rhythm without murmurs, gallops, or rubs. RESPIRATORY: Breath sounds equal bilaterally. No accessory muscle use. GASTROINTESTINAL: Abdomen soft, non-tender, nondistended. MUSCULOSKELETAL: No cyanosis, or edema. SKIN: Warm and dry. NEURO: No focal neurological deficits. - Urinary Catheter Management Indwelling Urethral Catheter Cath placed during this visit: no Results - Labs CBC & Chem 7: 05/21/18 04:20 05/21/18 04:20 Laboratory Results - last 24 hr 05/20/18 05/20/18 05/21/18 17:25 21:04 04:20 WBC 9.6 RBC 3.36 L Hgb 10.4 L Hct 31.1 L MCV 92.6 MCH 31.0 MCHC 33.4 RDW 18.0 H Plt Count 264 MPV 8.1 Prelim Diff (Auto) Slide review pending Neut % (Auto) 63.0 Lymph % (Auto) 21.5 Jones % (Auto) 9.7 H Eos % (Auto) 5.2 H Baso % (Auto) 0.6 Neut # (Auto) 6.0 Lymph # (Auto) 2.1 Jones # (Auto) 0.9 Eos # (Auto) 0.5 H Baso # (Auto) 0.1 WBC Differential Manual diff final Seg Neuts % (Manual) 53 Band Neuts % (Manual) 1 Lymphocytes % (Manual) 30 Monocytes % (Manual) 7 Eosinophils % (Manual) 6 H Myelocytes % (Man) 3 H Abs Neuts (Manual) 5.5 Differential Comment . Platelet Estimate Normal Platelet Morphology Normal Hematology Comments Sodium Potassium Chloride Carbon Dioxide Anion Gap BUN Creatinine Estimated GFR POC Glucose 146 H 112 H Random Glucose Calcium Phosphorus Magnesium Total Bilirubin AST ALT Alkaline Phosphatase Total Protein Albumin 05/21/18 05/21/18 05/21/18 04:20 07:59 11:28 WBC RBC Hgb Hct MCV MCH MCHC RDW Plt Count MPV Prelim Diff (Auto) Neut % (Auto) Lymph % (Auto) Jones % (Auto) Eos % (Auto) Baso % (Auto) Neut # (Auto) Lymph # (Auto) Jones # (Auto) Eos # (Auto) Baso # (Auto) WBC Differential Seg Neuts % (Manual) Band Neuts % (Manual) Lymphocytes % (Manual) Monocytes % (Manual) Eosinophils % (Manual) Myelocytes % (Man) Abs Neuts (Manual) Differential Comment Platelet Estimate Platelet Morphology Hematology Comments Sodium 139 Potassium 3.5 Chloride 96 L Carbon Dioxide 31.2 Anion Gap 12 BUN 28 H Creatinine 1.17 H Estimated GFR 46 L POC Glucose 139 H 146 H Random Glucose 97 Calcium 8.5 Phosphorus 3.3 D Magnesium 1.8 Total Bilirubin 0.3 AST 20 ALT 20 Alkaline Phosphatase 83 Total Protein 5.5 L Albumin 1.6 L Assessment and Plan - Plan 72-year-old female admitted secondary to hypoglycemia with renal failure and respiratory failure Acute renal failure Renal function continues to improve and is approaching previous baseline of 0.94 Continue monitoring renal function Avoid nephrotoxins Sodium electrolyte disturbance Patient has had problems with hypernatremia and hyponatremia Currently balance Monitor sodium levels Pseudomonas UTI. Continue IV cefepime ID following Acute diastolic CHF exacerbation Stabilized Continue Lasix A. fib RVR Rate is now controlled Cardiology following Continue metoprolol and Cardizem Acute hypercapnic hypoxemic respiratory failure was placed on BiPAP. Probably Pickwickian syndrome Pulmonary Infiltrate Respiratory status continues to improve Continue supplementation with oxygen and follow clinically Hypothyroidism. Continue levothyroxine Follow as an outpatient Diabetes mellitus type 2 Follow blood sugars Insulin sliding scale Diabetic diet Suicidal intent Resolved. 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 Encephalopathy Slowly improving Continue supportive care Generalized pain Continue pain Management Anemia of chronic disease Stabilized for now Follow CBC Cutaneous candidiasis. Continue nystatin Course of Diflucan completed Poor po intake Dysphagia Continue NG tube feeding If dysphagia improves can consider discontinuation of tube feeding DVT prophylaxis Lovenox 30 mg subcu every 24 hours Discharge Planning: Discharge planning based on progression of stability
--- NOTE | 2018-05-21 17:39 | P.PN ---
Subjective Interval history: remains the maia obtunded on PAP Physical Exam Vital signs: Vital Signs 05/20/18 18:00 05/20/18 19:00 05/20/18 20:30 Temperature 98.8 F Pulse Rate 89 88 93 H Respiratory Rate 22 Blood Pressure 113/75 115/66 110/59 L Pulse Oximetry 92 L 98 98 05/20/18 22:16 05/21/18 00:00 05/21/18 04:00 Temperature 98.2 F 98.2 F Pulse Rate 100 H 107 H Respiratory Rate 22 22 Blood Pressure 115/71 111/57 L Pulse Oximetry 98 94 L 95 05/21/18 04:35 05/21/18 08:00 05/21/18 12:00 Temperature 97.4 F L 99.2 F Pulse Rate 112 H 108 H 92 H Respiratory Rate 22 22 Blood Pressure 123/62 121/79 Pulse Oximetry 96 93 L Intake & Output 05/20/18 05/21/18 05/21/18 18:59 06:59 18:59 Intake Total 400 / 400 1264 / 1264 Output Total 1950 / 1950 Balance 400 / 400 -686 / -686 Weight 156.7 kg Intake: IV 400 / 400 400 / 400 Maxipime Inj 1,000 MG In NS Inj 100 / 100 100 ML @ 200 mls/hr IV.SIG Q12H IAN Rx#:[id number] Zyvox 600 mg Premix 300 ML @ 300 / 300 300 / 300 300 mls/hr IV.SIG Q12H IAN Rx#: [id number] Magnesium Sulfate 1 gm/D5W 100 100 / 100 ml Premix 100 ML @ 100 mls/hr IV.SIG ONCE ONE Rx#:[id number] Oral 200 / 200 Tube Feeding 544 / 544 Tube Irrigant 120 / 120 Output: Urine 400 / 400 Urine Amount (Catheter) 1550 / 1550 Indwelling Urethral Catheter 1550 / 1550 Other: Date of Last Bowel Movement 05/20/18 05/20/18 05/21/18 # Bowel Movements 2 Narrative: GENERAL: OBTUNDED SKIN: Warm and dry. HEAD: Atraumatic. Normocephalic. EYES: Pupils equal and round. No scleral icterus. No injection or drainage. ENT: No nasal bleeding or discharge. Mucous membranes pink and moist. NECK: Trachea midline. No JVD. CARDIOVASCULAR: Regular rate and rhythm. RESPIRATORY: No accessory muscle use. Clear to auscultation. Breath sounds equal bilaterally. GASTROINTESTINAL: Abdomen soft, non-tender, nondistended. Hepatic and splenic margins not palpable. MUSCULOSKELETAL: Extremities without clubbing, cyanosis, or edema. No obvious deformities. NEUROLOGICAL: Awake and alert. No obvious cranial nerve deficits. Motor grossly within normal limits. Five out of 5 muscle strength in the arms and legs. Normal speech. PSYCHIATRIC: Appropriate mood and affect; insight and judgment normal. - Urinary Catheter Management Indwelling Urethral Catheter Cath placed during this visit: no Results - Labs CBC & Chem 7: 05/21/18 04:20 05/21/18 04:20 Laboratory Results - last 24 hr 05/20/18 05/21/18 05/21/18 21:04 04:20 04:20 WBC 9.6 RBC 3.36 L Hgb 10.4 L Hct 31.1 L MCV 92.6 MCH 31.0 MCHC 33.4 RDW 18.0 H Plt Count 264 MPV 8.1 Prelim Diff (Auto) Slide review pending Neut % (Auto) 63.0 Lymph % (Auto) 21.5 [place] % (Auto) 9.7 H Eos % (Auto) 5.2 H Baso % (Auto) 0.6 Neut # (Auto) 6.0 Lymph # (Auto) 2.1 [place] # (Auto) 0.9 Eos # (Auto) 0.5 H Baso # (Auto) 0.1 WBC Differential Manual diff final Seg Neuts % (Manual) 53 Band Neuts % (Manual) 1 Lymphocytes % (Manual) 30 Monocytes % (Manual) 7 Eosinophils % (Manual) 6 H Myelocytes % (Man) 3 H Abs Neuts (Manual) 5.5 Differential Comment . Platelet Estimate Normal Platelet Morphology Normal Hematology Comments Sodium 139 Potassium 3.5 Chloride 96 L Carbon Dioxide 31.2 Anion Gap 12 BUN 28 H Creatinine 1.17 H Estimated GFR 46 L POC Glucose 112 H Random Glucose 97 Calcium 8.5 Phosphorus 3.3 D Magnesium 1.8 Total Bilirubin 0.3 AST 20 ALT 20 Alkaline Phosphatase 83 Total Protein 5.5 L Albumin 1.6 L 05/21/18 05/21/18 07:59 11:28 WBC RBC Hgb Hct MCV MCH MCHC RDW Plt Count MPV Prelim Diff (Auto) Neut % (Auto) Lymph % (Auto) [place] % (Auto) Eos % (Auto) Baso % (Auto) Neut # (Auto) Lymph # (Auto) [place] # (Auto) Eos # (Auto) Baso # (Auto) WBC Differential Seg Neuts % (Manual) Band Neuts % (Manual) Lymphocytes % (Manual) Monocytes % (Manual) Eosinophils % (Manual) Myelocytes % (Man) Abs Neuts (Manual) Differential Comment Platelet Estimate Platelet Morphology Hematology Comments Sodium Potassium Chloride Carbon Dioxide Anion Gap BUN Creatinine Estimated GFR POC Glucose 139 H 146 H Random Glucose Calcium Phosphorus Magnesium Total Bilirubin AST ALT Alkaline Phosphatase Total Protein Albumin Assessment and Plan - Assessment (1) Respiratory failure with hypoxia and hypercapnia Code(s): J96.91 - Respiratory failure, unspecified with hypoxia; J96.92 - Respiratory failure, unspecified with hypercapnia Status: Acute (2) BETTIE and COPD overlap syndrome Code(s): G47.33 - Obstructive sleep apnea (adult) (pediatric); J44.9 - Chronic obstructive pulmonary disease, unspecified Status: Acute - Plan O2 NEEDED BIPAP SLEEP PULM TOILET
[2018-05-21] MEDS: Montelukast 10 MG Tablet PO SCH (21:44)
[2018-05-21] MEDS: traZODone 100 MG Tablet PO SCH (21:45)
[2018-05-22] MEDS: dilTIAZem 60 MG Tablet PO SCH ×4 (00:52→17:49)
[2018-05-22] MEDS: Levothyroxine 75 MCG Tablet PO SCH (06:00)
[2018-05-22] MEDS: Potassium Phos/Sodium Phos 250 MG Tablet NG/OG SCH ×2 (06:00→16:50)
[2018-05-22] MEDS: Insulin NovoLOG Aspart Correctional Sugar Inj SQ SCH ×3 (09:34→17:49)
[2018-05-22] MEDS: Heparin - SQ 10,000 UNITS/ML Vial SQ SCH (09:43)
[2018-05-22] MEDS: Metoprolol Tartrate 50 MG Tablet PO SCH (09:44)
[2018-05-22] MEDS: Nystatin 100,000 UNITS/GM Powder 15 GM Bottle TOPICAL SCH (09:45)
--- NOTE | 2018-05-22 12:42 | P.PNIM ---
Subjective Interval history: Still a little confused, patient is not oriented to place but oriented to self. Afebrile overnight. Creatinine is better. Physical Exam Vital signs: Vital Signs 05/21/18 16:00 05/21/18 20:00 05/22/18 00:00 Temperature 98.7 F 97.4 F L 97.8 F Pulse Rate 115 H 91 H 85 Respiratory Rate 22 19 20 Blood Pressure 134/68 145/67 H 132/67 Pulse Oximetry 92 L 93 L 95 05/22/18 04:00 Temperature 98 F Pulse Rate 85 Respiratory Rate 18 Blood Pressure 137/68 Pulse Oximetry 94 L Intake & Output 05/21/18 05/22/18 05/22/18 18:59 06:59 18:59 Intake Total 400 / 400 640 / 640 Output Total 550 / 550 Balance 400 / 400 90 / 90 Weight 155.1 kg Intake: IV 400 / 400 400 / 400 Maxipime Inj 1,000 MG In NS Inj 100 / 100 100 / 100 100 ML @ 200 mls/hr IV.SIG Q12H IAN Rx#:[id number] Zyvox 600 mg Premix 300 ML @ 300 / 300 300 / 300 300 mls/hr IV.SIG Q12H IAN Rx#: [id number] Oral 240 / 240 Output: Urine 550 / 550 Other: Date of Last Bowel Movement 05/21/18 05/22/18 Narrative: GENERAL: NAD, A&Ox1 EYES: No scleral icterus. No injection or drainage. CARDIOVASCULAR: Regular rate and rhythm without murmurs, gallops, or rubs. RESPIRATORY: Breath sounds equal bilaterally. No accessory muscle use. GASTROINTESTINAL: Abdomen soft, non-tender, nondistended. Obese. Frias catheter in place with clear yellow urine MUSCULOSKELETAL: 1+ lower extremity edema NEURO: Awake, alert, oriented to self, moves extremities, positive for generalized weakness - Urinary Catheter Management Indwelling Urethral Catheter Cath placed during this visit: no Results - Labs CBC & Chem 7: 05/21/18 04:20 05/21/18 04:20 Laboratory Results - last 24 hr 05/20/18 05/20/18 05/21/18 17:25 21:04 04:20 WBC 9.6 RBC 3.36 L Hgb 10.4 L Hct 31.1 L MCV 92.6 MCH 31.0 MCHC 33.4 RDW 18.0 H Plt Count 264 MPV 8.1 Prelim Diff (Auto) Slide review pending Neut % (Auto) 63.0 Lymph % (Auto) 21.5 [place] % (Auto) 9.7 H Eos % (Auto) 5.2 H Baso % (Auto) 0.6 Neut # (Auto) 6.0 Lymph # (Auto) 2.1 [place] # (Auto) 0.9 Eos # (Auto) 0.5 H Baso # (Auto) 0.1 WBC Differential Manual diff final Seg Neuts % (Manual) 53 Band Neuts % (Manual) 1 Lymphocytes % (Manual) 30 Monocytes % (Manual) 7 Eosinophils % (Manual) 6 H Myelocytes % (Man) 3 H Abs Neuts (Manual) 5.5 Differential Comment . Platelet Estimate Normal Platelet Morphology Normal Hematology Comments Sodium Potassium Chloride Carbon Dioxide Anion Gap BUN Creatinine Estimated GFR POC Glucose 146 H 112 H Random Glucose Calcium Phosphorus Magnesium Total Bilirubin AST ALT Alkaline Phosphatase Total Protein Albumin 05/21/18 05/21/18 05/21/18 04:20 07:59 11:28 WBC RBC Hgb Hct MCV MCH MCHC RDW Plt Count MPV Prelim Diff (Auto) Neut % (Auto) Lymph % (Auto) [place] % (Auto) Eos % (Auto) Baso % (Auto) Neut # (Auto) Lymph # (Auto) [place] # (Auto) Eos # (Auto) Baso # (Auto) WBC Differential Seg Neuts % (Manual) Band Neuts % (Manual) Lymphocytes % (Manual) Monocytes % (Manual) Eosinophils % (Manual) Myelocytes % (Man) Abs Neuts (Manual) Differential Comment Platelet Estimate Platelet Morphology Hematology Comments Sodium 139 Potassium 3.5 Chloride 96 L Carbon Dioxide 31.2 Anion Gap 12 BUN 28 H Creatinine 1.17 H Estimated GFR 46 L POC Glucose 139 H 146 H Random Glucose 97 Calcium 8.5 Phosphorus 3.3 D Magnesium 1.8 Total Bilirubin 0.3 AST 20 ALT 20 Alkaline Phosphatase 83 Total Protein 5.5 L Albumin 1.6 L Assessment and Plan - Plan 72-year-old female admitted secondary to hypoglycemia with renal failure and respiratory failure Acute renal failure Renal function continues to improve and is approaching previous baseline of 0.94 Continue monitoring renal function Avoid nephrotoxins Sodium electrolyte disturbance Patient has had problems with hypernatremia and hyponatremia Currently balance Monitor sodium levels Pseudomonas UTI. Continue IV cefepime ID following Acute diastolic CHF exacerbation Stabilized Continue Lasix A. fib RVR Rate is now controlled Cardiology following Continue metoprolol and Cardizem Acute hypercapnic hypoxemic respiratory failure was placed on BiPAP. Probably Pickwickian syndrome Pulmonary Infiltrate Respiratory status continues to improve Continue supplementation with oxygen and follow clinically Hypothyroidism. Continue levothyroxine Follow as an outpatient Diabetes mellitus type 2 Follow blood sugars Insulin sliding scale Diabetic diet Suicidal intent Resolved. 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 Encephalopathy Slowly improving Continue supportive care Generalized pain Continue pain Management Anemia of chronic disease Stabilized for now Follow CBC Cutaneous candidiasis. Continue nystatin Course of Diflucan completed Poor po intake Dysphagia Continue NG tube feeding If dysphagia improves can consider discontinuation of tube feeding DVT prophylaxis Lovenox 30 mg subcu every 24 hours Discharge Planning: Discharge planning based on progression of stability - Urinary Catheter Management Indwelling Urethral Catheter Cath placed during this visit: no Results - Labs CBC & Chem 7: 05/21/18 04:20 05/21/18 04:20 Laboratory Results - last 24 hr 05/21/18 05/21/18 05/22/18 17:37 20:55 08:35 POC Glucose 102 115 H 126 H Assessment and Plan - Plan 72-year-old female admitted secondary to hypoglycemia with renal failure and respiratory failure Acute renal failure Renal function continues to improve and is approaching previous baseline of 0.94 , today is 1.17, recheck BMP tomorrow. Avoid nephrotoxins Sodium electrolyte disturbance Patient has had problems with hypernatremia and hyponatremia, currently stable. Pseudomonas UTI. Continue IV cefepime, infectious disease following Acute diastolic CHF exacerbation Stabilized Continue Lasix A. fib RVR Rate is now controlled Cardiology following Continue metoprolol and Cardizem Acute hypercapnic hypoxemic respiratory failure was placed on BiPAP. Probably Pickwickian syndrome Pulmonary Infiltrate Respiratory status continues to improve Continue supplementation with oxygen and follow clinically Hypothyroidism. Continue levothyroxine Follow as an outpatient Diabetes mellitus type 2 Follow blood sugars Insulin sliding scale Diabetic diet Suicidal intent Resolved. 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 Encephalopathy Slowly improving Continue supportive care Generalized pain Continue pain Management Anemia of chronic disease Stabilized for now Follow CBC Cutaneous candidiasis. Continue nystatin Course of Diflucan completed Poor po intake Dysphagia Speech therapy has cleared the patient, on pure and thin liquids. DVT prophylaxis Lovenox 30 mg subcu every 24 hours Discharge Planning: Patient will require snf, case management working on placement.
--- NOTE | 2018-05-22 14:22 | P.PNID ---
Subjective Remarks: This is a 72-year-old white female who was admitted to the hospital on 2017 with hypoglycemia. The patient reportedly had a glucose of 15 on arrival of EMS to attend to her. She reportedly was moaning pain as well when she was admitted through the Emergency department. The patient reportedly was on hospice care at home and that was revoked by her family members. She has been attended to by various specialties during this hospitalization. This includes endocrinology,pulmonary, nephrology, cardiology , and also critical care. The patient more recently has been very lethargic. Urine culture was performed on 05/10/2018 and came back with Enterococcus faecium VRE. The patient received ceftriaxone from 04/18-05/04. She was put on linezolid on 05/16/2018. Repeat urine culture was obtained and now has growth of Pseudomonas aeruginosa. Her white count today is 12.8. Previous to that, the white count was normal between 05/05 and today. The last temperature elevation was 100.3 degrees on 05/16/2018. She is currently afebrile. The patient does not open eyes or awaken to me. She is somnolent and does not make any attempt to respond. Chest x-ray on 05/16/2018 showed cardiomegaly with bibasilar airspace disease and probable pleural effusions. The patient has a Frias catheter in place, which has cloudy sediment. Notes reviewed Afebrile More awake, responding UC with PSAE And E faecium, not VRE Creatinine better WBC normal Frequent loose stool, C diff negative Frias placed 05/10 Antibiotics: Cefepime Zyvox Lines: PIV - No evidence of infection Past Medical History: Reviewed - Hypothyroidism, hypertension, gastroesophageal reflux disease, depression, arthritis, atrial fibrillation, cataract surgery, knee surgery, , and endometrial hyperplasia. Allergies/Adverse Reactions: Allergies aspirin Allergy (Severe, Verified 04/17/18 23:08) wheezing, runny nose, watery eyes Shellfish Allergy (Unknown, Uncoded 04/17/18 23:04) Objective Vital Signs 05/21/18 16:00 05/21/18 20:00 05/22/18 00:00 Temperature 98.7 F 97.4 F L 97.8 F Pulse Rate 115 H 91 H 85 Respiratory Rate 22 19 20 Blood Pressure 134/68 145/67 H 132/67 Pulse Oximetry 92 L 93 L 95 05/22/18 04:00 Temperature 98 F Pulse Rate 85 Respiratory Rate 18 Blood Pressure 137/68 Pulse Oximetry 94 L Intake & Output 05/21/18 05/22/18 05/22/18 18:59 06:59 18:59 Intake Total 400 / 400 640 / 640 Output Total 550 / 550 Balance 400 / 400 90 / 90 Weight 155.1 kg Intake: IV 400 / 400 400 / 400 Maxipime Inj 1,000 MG In NS Inj 100 / 100 100 / 100 100 ML @ 200 mls/hr IV.SIG Q12H IAN Rx#:[id number] Zyvox 600 mg Premix 300 ML @ 300 / 300 300 / 300 300 mls/hr IV.SIG Q12H IAN Rx#: [id number] Oral 240 / 240 Output: Urine 550 / 550 Other: Date of Last Bowel Movement 05/21/18 05/22/18 Lab - Hematology Results 05/21/18 04:20 WBC 9.6 RBC 3.36 L Hgb 10.4 L Hct 31.1 L MCV 92.6 MCH 31.0 MCHC 33.4 RDW 18.0 H Plt Count 264 MPV 8.1 Prelim Diff (Auto) Slide review pending Neut % (Auto) 63.0 Lymph % (Auto) 21.5 [place] % (Auto) 9.7 H Eos % (Auto) 5.2 H Baso % (Auto) 0.6 Neut # (Auto) 6.0 Lymph # (Auto) 2.1 [place] # (Auto) 0.9 Eos # (Auto) 0.5 H Baso # (Auto) 0.1 WBC Differential Manual diff final Seg Neuts % (Manual) 53 Band Neuts % (Manual) 1 Lymphocytes % (Manual) 30 Monocytes % (Manual) 7 Eosinophils % (Manual) 6 H Myelocytes % (Man) 3 H Abs Neuts (Manual) 5.5 Differential Comment . Platelet Estimate Normal Platelet Morphology Normal Hematology Comments Lab - Chemistry Results 05/20/18 05/20/18 05/21/18 17:25 21:04 04:20 Sodium 139 Potassium 3.5 Chloride 96 L Carbon Dioxide 31.2 Anion Gap 12 BUN 28 H Creatinine 1.17 H Estimated GFR 46 L POC Glucose 146 H 112 H Random Glucose 97 Calcium 8.5 Phosphorus 3.3 D Magnesium 1.8 Total Bilirubin 0.3 AST 20 ALT 20 Alkaline Phosphatase 83 Total Protein 5.5 L Albumin 1.6 L 05/21/18 05/21/18 05/21/18 07:59 11:28 17:37 Sodium Potassium Chloride Carbon Dioxide Anion Gap BUN Creatinine Estimated GFR POC Glucose 139 H 146 H 102 Random Glucose Calcium Phosphorus Magnesium Total Bilirubin AST ALT Alkaline Phosphatase Total Protein Albumin 05/21/18 05/22/18 05/22/18 20:55 08:35 12:50 Sodium Potassium Chloride Carbon Dioxide Anion Gap BUN Creatinine Estimated GFR POC Glucose 115 H 126 H 135 H Random Glucose Calcium Phosphorus Magnesium Total Bilirubin AST ALT Alkaline Phosphatase Total Protein Albumin Physical Exam: Physical Examination GENERAL: This is a morbidly obese female, awake, and responding, NAD HEENT: The head is atraumatic. Extraocular movements are grossly intact. Pupils reactive to light. Oropharyngeal mucosa is dry. No thrush. NECK: Supple, obese LUNGS: Decreased breath sounds throughout. HEART: Irregular rate and rhythm without murmurs, rubs or gallops. ABDOMEN: Obese, decreased bowel sounds. No tenderness appreciated. No palpable mass. EXTREMITIES: No clubbing. No clubbing, cyanosis or edema. SKIN: No rash. Several scabbed lesions including one on the anterior chest and one on the dorsum of the right hand. NEUROLOGIC: awake and responding PSYCHIATRIC: calm LINE: NO evidence of infection Assessment and Plan - Plan IMPRESSION: Urinary tract infection due to Pseudomonas aeruginosa and E faecium - not VRE this time, but R to AMpicillin Altered mental status, better Hypercapnic respiratory failure Acute kidney disease. Morbid obesity. RECOMMENDATIONS: Continue cefepime for Pseudomonas coverage Continue Zyvox - Follow CBC Repeat UA and C/S Monitor progress Monitor mental status
[2018-05-22 15:48] LABS: Baso # (Auto) 0.1 th/mm3 (0.0-0.2); Baso % (Auto) 1.1 % (0.0-2.0); Eos # (Auto) 0.5 th/mm3 (0.0-0.4); Eos % (Auto) 4.6 % (0.0-4.0); Hematocrit 33.9 % (35.0-46.0); Hemoglobin 11.4 gm/dL (11.6-15.3); Lymph # (Auto) 2.4 th/mm3 (1.0-4.8); Lymph % (Auto) 21.1 % (9.0-44.0); Mean Corpuscular HGB Conc 33.5 % (32.0-36.0); Mean Corpuscular Hemoglobin 30.7 pg (27.0-34.0); Mean Corpuscular Volume 91.5 fL (80.0-100.0); Mean Platelet Volume 7.4 fL (7.0-11.0); Mono % (Auto) 8.7 % (0.0-8.0); Neut # (Auto) 7.2 th/mm3 (1.8-7.7); Neut % (Auto) 64.5 % (16.0-70.0); Platelet Count 326 th/mm3 (150-450); Red Cell Distribution Width 17.6 % (11.6-17.2); White Blood Count 11.2 th/mm3 (4.0-11.0)
[2018-05-22 16:10] LABS: Alanine Aminotransferase 25 U/L (10-53); Albumin 1.8 g/dL (3.4-5.0); Anion Gap 10 meq/L (5-15); Aspartate Aminotransferase 19 U/L (15-37); Blood Urea Nitrogen 23 mg/dL (7-18); Calcium 8.2 mg/dL (8.5-10.1); Carbon Dioxide 35.4 meq/L (21.0-32.0); Chloride 92 meq/L (98-107); Glomerular Filtration Rate 48 mL/min (>89); Glucose,Random 117 mg/dL (74-106); Potassium 3.3 meq/L (3.5-5.1); Sodium 137 meq/L (136-145)
[2018-05-22 16:12] LABS: Alkaline Phosphatase 86 U/L (45-117); Total Protein 5.8 g/dL (6.4-8.2)
--- NOTE | 2018-05-22 17:07 | P.DIET ---
Nutritional Evaluation Type of nutrition evaluation: follow-up Nutrition consult regarding: Tube Feeding Subjective Subjective Comments: Poor po intake noted. Refused breakfast per nurse. Sleeping when visited. Objective - Diagnosis Profound Hypoglycemia - Objective % IBW: 253 Body Weight Used for Calculations: IBW (61.4 kg) Energy Needs - Lower Range (kCal/kg): 28 Energy Needs - Upper Range (kCal/kg): 32 Lower Limit kCal/kg (kCals): 1,719 Upper Limit kCal/kg (kCals): 1,965 Lower Limit Protein Factor (Grams per Kg): 1.2 Upper Limit Protein Factor (Grams per Kg): 1.5 Lower Protein Needs (Protein): 74 Upper Protein Needs (Protein): 92 Dietitian Reviewed in Medical Record: Current diet, Curent medications, Intake & Output, Labs, Medical history, Tube feeding Diet Order: Mechanical Soft, 2 gm Na, 1800 ADA Oral Diet Intake Amount: Poor <50% Speech Therapy Recommendations: Yes (rec mechanical soft with thin liqs) Wound Care Note: see WOCN dated 05/21 Objective Comments: Hx includes hypothyroid, AFib w/RVR, HTN, GERD, depression, arthritis, complex atypical endometrial hyperplasia, DM Assessment Assessment: TF has been d'c'ed and diet now advanced to Mechanical Soft, 2 gm Na, 1800 ADA. Pt has poor po intake at this time but I am reluctant to start supplements d/t BMI of 53.6. Will monitor po intake to see if it improves with new diet advance and then assess for the need of supplementation. Current diet order is appropriate. Pt with noted improvement in renal fxn. RD will follow. Recommendations: Continue current diet. Encourage at meals Dietitian to Monitor: Lab values, Intake & Output, Diet tolerance, Weight change , PO Intake, Wound/skin status, Medical course
[2018-05-22 17:11] LABS: Eosinophils 4 % (0-4); Lymphocytes 13 % (9-44); Metamyelocytes 1 % (0-1); Monocytes 8 % (0-8); Myelocytes 2 % (0-0)
[2018-05-22 17:12] LABS: Platelet Estimate Normal (Normal); Platelet Morphology Normal (Normal); RBC Morphology Normal (Normal)
--- NOTE | 2018-05-22 18:54 | P.PN ---
Subjective Interval history: ALERT NO DISTRESS Physical Exam Vital signs: Vital Signs 05/21/18 20:00 05/22/18 00:00 05/22/18 04:00 Temperature 97.4 F L 97.8 F 98 F Pulse Rate 91 H 85 85 Respiratory Rate 19 20 18 Blood Pressure 145/67 H 132/67 137/68 Pulse Oximetry 93 L 95 94 L 05/22/18 08:00 05/22/18 12:00 05/22/18 16:00 Temperature 97.9 F 98.2 F 98.3 F Pulse Rate 88 85 83 Respiratory Rate 18 18 16 Blood Pressure 135/63 125/64 128/74 Pulse Oximetry 96 95 Intake & Output 05/21/18 05/22/18 05/22/18 18:59 06:59 18:59 Intake Total 400 / 400 640 / 640 Output Total 550 / 550 Balance 400 / 400 90 / 90 Weight 155.1 kg Intake: IV 400 / 400 400 / 400 Maxipime Inj 1,000 MG In NS Inj 100 / 100 100 / 100 100 ML @ 200 mls/hr IV.SIG Q12H IAN Rx#:[id number] Zyvox 600 mg Premix 300 ML @ 300 / 300 300 / 300 300 mls/hr IV.SIG Q12H IAN Rx#: [id number] Oral 240 / 240 Output: Urine 550 / 550 Other: Date of Last Bowel Movement 05/21/18 05/22/18 Narrative: GENERAL: OBTUNDED SKIN: Warm and dry. HEAD: Atraumatic. Normocephalic. EYES: Pupils equal and round. No scleral icterus. No injection or drainage. ENT: No nasal bleeding or discharge. Mucous membranes pink and moist. NECK: Trachea midline. No JVD. CARDIOVASCULAR: Regular rate and rhythm. RESPIRATORY: No accessory muscle use. Clear to auscultation. Breath sounds equal bilaterally. GASTROINTESTINAL: Abdomen soft, non-tender, nondistended. Hepatic and splenic margins not palpable. MUSCULOSKELETAL: Extremities without clubbing, cyanosis, or edema. No obvious deformities. NEUROLOGICAL: Awake and alert. No obvious cranial nerve deficits. Motor grossly within normal limits. Five out of 5 muscle strength in the arms and legs. Normal speech. PSYCHIATRIC: Appropriate mood and affect; insight and judgment normal. - Urinary Catheter Management Indwelling Urethral Catheter Cath placed during this visit: no Results - Labs CBC & Chem 7: 05/22/18 14:00 05/22/18 15:00 Laboratory Results - last 24 hr 05/21/18 05/22/18 05/22/18 20:55 08:35 12:50 WBC RBC Hgb Hct MCV MCH MCHC RDW Plt Count MPV Prelim Diff (Auto) Neut % (Auto) Lymph % (Auto) [place] % (Auto) Eos % (Auto) Baso % (Auto) Neut # (Auto) Lymph # (Auto) [place] # (Auto) Eos # (Auto) Baso # (Auto) WBC Differential Seg Neuts % (Manual) Lymphocytes % (Manual) Monocytes % (Manual) Eosinophils % (Manual) Metamyelocytes % (Man) Myelocytes % (Man) Abs Neuts (Manual) Differential Comment Platelet Estimate Platelet Morphology RBC Morphology Sodium Potassium Chloride Carbon Dioxide Anion Gap BUN Creatinine Estimated GFR POC Glucose 115 H 126 H 135 H Random Glucose Calcium Total Bilirubin AST ALT Alkaline Phosphatase Total Protein Albumin 05/22/18 05/22/18 05/22/18 14:00 15:00 17:43 WBC 11.2 H RBC 3.70 L Hgb 11.4 L Hct 33.9 L MCV 91.5 MCH 30.7 MCHC 33.5 RDW 17.6 H Plt Count 326 MPV 7.4 Prelim Diff (Auto) Slide review pending Neut % (Auto) 64.5 Lymph % (Auto) 21.1 [place] % (Auto) 8.7 H Eos % (Auto) 4.6 H Baso % (Auto) 1.1 Neut # (Auto) 7.2 Lymph # (Auto) 2.4 [place] # (Auto) 1.0 H Eos # (Auto) 0.5 H Baso # (Auto) 0.1 WBC Differential Manual diff final Seg Neuts % (Manual) 72 H Lymphocytes % (Manual) 13 Monocytes % (Manual) 8 Eosinophils % (Manual) 4 Metamyelocytes % (Man) 1 Myelocytes % (Man) 2 H Abs Neuts (Manual) 8.4 H Differential Comment . Platelet Estimate Normal Platelet Morphology Normal RBC Morphology Normal Sodium 137 Potassium 3.3 L Chloride 92 L Carbon Dioxide 35.4 H Anion Gap 10 BUN 23 H Creatinine 1.13 H Estimated GFR 48 L POC Glucose 131 H Random Glucose 117 H Calcium 8.2 L Total Bilirubin 0.4 AST 19 ALT 25 Alkaline Phosphatase 86 Total Protein 5.8 L Albumin 1.8 L Assessment and Plan - Assessment (1) Respiratory failure with hypoxia and hypercapnia Code(s): J96.91 - Respiratory failure, unspecified with hypoxia; J96.92 - Respiratory failure, unspecified with hypercapnia Status: Acute (2) BETTIE and COPD overlap syndrome Code(s): G47.33 - Obstructive sleep apnea (adult) (pediatric); J44.9 - Chronic obstructive pulmonary disease, unspecified Status: Acute - Plan RESPIRATORY FAILURE BETTIE MORBID OBESITY PLAN O2 NEEDED BIPAP SLEEP PULM TOILET
--- NOTE | 2018-05-22 19:19 | P.PNEN ---
Subjective Interval history: Patient seen last night. Unfortunately orders written in old EMR System and not carried out. Please see [employer] for Consultation note. Physical Exam Vital signs: Vital Signs 05/21/18 20:00 05/22/18 00:00 05/22/18 04:00 Temperature 97.4 F L 97.8 F 98 F Pulse Rate 91 H 85 85 Respiratory Rate 19 20 18 Blood Pressure 145/67 H 132/67 137/68 Pulse Oximetry 93 L 95 94 L 05/22/18 08:00 05/22/18 12:00 05/22/18 16:00 Temperature 97.9 F 98.2 F 98.3 F Pulse Rate 88 85 83 Respiratory Rate 18 18 16 Blood Pressure 135/63 125/64 128/74 Pulse Oximetry 96 95 Intake & Output 05/22/18 05/22/18 05/23/18 06:59 18:59 06:59 Intake Total 640 / 640 Output Total 550 / 550 Balance 90 / 90 Weight 155.1 kg Intake: IV 400 / 400 Maxipime Inj 1,000 MG In NS Inj 100 / 100 100 ML @ 200 mls/hr IV.SIG Q12H IAN Rx#:[id number] Zyvox 600 mg Premix 300 ML @ 300 / 300 300 mls/hr IV.SIG Q12H IAN Rx#: [id number] Oral 240 / 240 Output: Urine 550 / 550 Other: Date of Last Bowel Movement 05/22/18 - Urinary Catheter Management Indwelling Urethral Catheter Cath placed during this visit: no Assessment and Plan - Assessment (1) Hypothyroidism Code(s): E03.9 - Hypothyroidism, unspecified Status: Acute - Plan Hold PO Levothyroxine, start levothyrozxine 500 mcg IV now and repeat TSHand Free T4 in Am. Orders written in [employer].
[2018-05-23] MEDS: traZODone 100 MG Tablet PO SCH ×2 (00:10→20:38)
[2018-05-23] MEDS: Heparin - SQ 10,000 UNITS/ML Vial SQ SCH ×3 (00:10→20:37)
[2018-05-23] MEDS: Nystatin 100,000 UNITS/GM Powder 15 GM Bottle TOPICAL SCH ×3 (00:10→21:15)
[2018-05-23] MEDS: Metoprolol Tartrate 50 MG Tablet PO SCH ×3 (00:10→21:15)
[2018-05-23] MEDS: Montelukast 10 MG Tablet PO SCH ×2 (00:11→20:38)
[2018-05-23] MEDS: Potassium Phos/Sodium Phos 250 MG Tablet NG/OG SCH ×4 (00:11→21:10)
[2018-05-23] MEDS: dilTIAZem 60 MG Tablet PO SCH ×5 (00:11→19:06)
[2018-05-23] MEDS: Insulin NovoLOG Aspart Correctional Sugar Inj SQ SCH ×4 (00:13→17:39)
[2018-05-23 06:58] LABS: Calcium 8.6 mg/dL (8.5-10.1); Carbon Dioxide 33.6 meq/L (21.0-32.0); Potassium 3.2 meq/L (3.5-5.1)
[2018-05-23 07:07] LABS: Free T4 (Free Thyroxine) 2.01 ng/dL (0.76-1.46); Thyroid Stimulating Hormone 50.8 uIU/mL (0.358-3.740)
--- NOTE | 2018-05-23 12:03 | P.PN ---
Subjective Interval history: Mrs. Power was afebrile with stable VS overnight. O2 saturations 98-99% on 2 L O2 via NC. Per discussion with staff, patient had some bradycardia today. Telemetry reviewed; patient with some intermittent tachycardia recorded on tele but this seems to be a contaminant and actual rate <100bpm. Patient seemed confused during interview; she denied pain but stated her breathing was not great and that she needed oxygen. Patient did not answer other questions directly. Physical Exam Vital signs: Vital Signs 05/22/18 16:00 05/23/18 00:00 05/23/18 01:28 Temperature 98.3 F 97.5 F L Pulse Rate 83 92 H Respiratory Rate 16 18 Blood Pressure 128/74 97/64 L Pulse Oximetry 98 96 05/23/18 01:43 05/23/18 04:00 05/23/18 04:40 Temperature 97.3 F L Pulse Rate 72 Respiratory Rate 20 Blood Pressure 111/55 L Pulse Oximetry 96 99 98 Intake & Output 05/22/18 05/23/18 05/23/18 18:59 06:59 18:59 Intake Total 400 / 400 300 / 300 Balance 400 / 400 300 / 300 Weight 155.6 kg Intake: IV 400 / 400 300 / 300 Maxipime Inj 1,000 MG In NS Inj 100 / 100 100 ML @ 200 mls/hr IV.SIG Q12H IAN Rx#:[id number] Zyvox 600 mg Premix 300 ML @ 300 / 300 300 / 300 300 mls/hr IV.SIG Q12H IAN Rx#: [id number] Other: Date of Last Bowel Movement 05/22/18 05/23/18 Narrative: GENERAL: NAD, confused EYES: EOM grossly I CARDIOVASCULAR: Regular rate and rhythm without murmurs, gallops, or rubs. RESPIRATORY: Breath sounds equal bilaterally. Normal sat on NC O2 GASTROINTESTINAL: Abdomen soft, non-tender, nondistended. Obese. Frias catheter in place MUSCULOSKELETAL: Mild bilateral lower extremity edema NEURO: Awake, alert, oriented to self. normal speech at times; sometimes mumbling. grossly normal CN. generalized weakness - Urinary Catheter Management Indwelling Urethral Catheter Cath placed during this visit: no Results - Labs CBC & Chem 7: 05/22/18 14:00 05/23/18 05:51 Laboratory Results - last 24 hr 05/22/18 05/22/18 05/22/18 12:50 14:00 15:00 WBC 11.2 H RBC 3.70 L Hgb 11.4 L Hct 33.9 L MCV 91.5 MCH 30.7 MCHC 33.5 RDW 17.6 H Plt Count 326 MPV 7.4 Prelim Diff (Auto) Slide review pending Neut % (Auto) 64.5 Lymph % (Auto) 21.1 [place] % (Auto) 8.7 H Eos % (Auto) 4.6 H Baso % (Auto) 1.1 Neut # (Auto) 7.2 Lymph # (Auto) 2.4 [place] # (Auto) 1.0 H Eos # (Auto) 0.5 H Baso # (Auto) 0.1 WBC Differential Manual diff final Seg Neuts % (Manual) 72 H Lymphocytes % (Manual) 13 Monocytes % (Manual) 8 Eosinophils % (Manual) 4 Metamyelocytes % (Man) 1 Myelocytes % (Man) 2 H Abs Neuts (Manual) 8.4 H Differential Comment . Platelet Estimate Normal Platelet Morphology Normal RBC Morphology Normal Sodium 137 Potassium 3.3 L Chloride 92 L Carbon Dioxide 35.4 H Anion Gap 10 BUN 23 H Creatinine 1.13 H Estimated GFR 48 L POC Glucose 135 H Random Glucose 117 H Calcium 8.2 L Total Bilirubin 0.4 AST 19 ALT 25 Alkaline Phosphatase 86 Total Protein 5.8 L Albumin 1.8 L TSH Free T4 05/22/18 05/22/18 05/23/18 17:43 21:10 05:51 WBC RBC Hgb Hct MCV MCH MCHC RDW Plt Count MPV Prelim Diff (Auto) Neut % (Auto) Lymph % (Auto) [place] % (Auto) Eos % (Auto) Baso % (Auto) Neut # (Auto) Lymph # (Auto) [place] # (Auto) Eos # (Auto) Baso # (Auto) WBC Differential Seg Neuts % (Manual) Lymphocytes % (Manual) Monocytes % (Manual) Eosinophils % (Manual) Metamyelocytes % (Man) Myelocytes % (Man) Abs Neuts (Manual) Differential Comment Platelet Estimate Platelet Morphology RBC Morphology Sodium 136 Potassium 3.2 L Chloride 90 L Carbon Dioxide 33.6 H Anion Gap 12 BUN 24 H Creatinine 1.22 H Estimated GFR 44 L POC Glucose 131 H 133 H Random Glucose 135 H Calcium 8.6 Total Bilirubin AST ALT Alkaline Phosphatase Total Protein Albumin TSH 50.800 H Free T4 2.01 H 05/23/18 07:51 WBC RBC Hgb Hct MCV MCH MCHC RDW Plt Count MPV Prelim Diff (Auto) Neut % (Auto) Lymph % (Auto) [place] % (Auto) Eos % (Auto) Baso % (Auto) Neut # (Auto) Lymph # (Auto) [place] # (Auto) Eos # (Auto) Baso # (Auto) WBC Differential Seg Neuts % (Manual) Lymphocytes % (Manual) Monocytes % (Manual) Eosinophils % (Manual) Metamyelocytes % (Man) Myelocytes % (Man) Abs Neuts (Manual) Differential Comment Platelet Estimate Platelet Morphology RBC Morphology Sodium Potassium Chloride Carbon Dioxide Anion Gap BUN Creatinine Estimated GFR POC Glucose 142 H Random Glucose Calcium Total Bilirubin AST ALT Alkaline Phosphatase Total Protein Albumin TSH Free T4 Assessment and Plan - Assessment (1) Respiratory failure with hypoxia and hypercapnia Code(s): J96.91 - Respiratory failure, unspecified with hypoxia; J96.92 - Respiratory failure, unspecified with hypercapnia Status: Acute (2) BETTIE and COPD overlap syndrome Code(s): G47.33 - Obstructive sleep apnea (adult) (pediatric); J44.9 - Chronic obstructive pulmonary disease, unspecified Status: Acute (3) Hypothyroidism Code(s): E03.9 - Hypothyroidism, unspecified Status: Acute - Plan 72-year-old female admitted secondary to hypoglycemia with renal failure and respiratory failure Acute renal failure Impression: Cr 1.22 today; seems to be near baseline. Continue monitoring renal function Avoid nephrotoxins Sodium electrolyte disturbance Patient has had problems with hypernatremia and hyponatremia Currently balance Monitor sodium levels UTI. Impression: Pseudomonas aeruginosa and E faecium -ID consulted -Continue Cefepime -Zyvox stopped 05/23 -monitor CBC, UA, C/S -Monitor mental status Encephalopathy Slowly improving Continue supportive care Poor po intake Dysphagia Continue NG tube feeding If dysphagia improves can consider discontinuation of tube feeding Acute diastolic CHF exacerbation Stabilized Continue Lasix A. fib RVR Rate is now controlled Cardiology following Continue metoprolol and Cardizem Acute hypercapnic hypoxemic respiratory failure was placed on BiPAP. Probably Pickwickian syndrome Pulmonary Infiltrate Respiratory status continues to improve Continue supplementation with oxygen and follow clinically Pulmonology consulted -BIPAP at night Hypothyroidism. Endocrinology consulted -Levothyroxine 500mcg IV -Monitor TSH, T4 -TSH 50 7/ Diabetes mellitus type 2 Follow blood sugars Insulin sliding scale Diabetic diet Suicidal intent Resolved. 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 Generalized pain Continue pain Management Anemia of chronic disease Stabilized for now Follow CBC Cutaneous candidiasis. Continue nystatin Course of Diflucan completed DVT prophylaxis Lovenox 30 mg subcu every 24 hours Discharge Planning: Discharge pending clinical improvement
--- NOTE | 2018-05-23 12:14 | P.PN ---
Subjective Interval history: lethargic but abusible on o2 no distress Physical Exam Vital signs: Vital Signs 05/22/18 16:00 05/23/18 00:00 05/23/18 01:28 Temperature 98.3 F 97.5 F L Pulse Rate 83 92 H Respiratory Rate 16 18 Blood Pressure 128/74 97/64 L Pulse Oximetry 98 96 05/23/18 01:43 05/23/18 04:00 05/23/18 04:40 Temperature 97.3 F L Pulse Rate 72 Respiratory Rate 20 Blood Pressure 111/55 L Pulse Oximetry 96 99 98 Intake & Output 05/22/18 05/23/18 05/23/18 18:59 06:59 18:59 Intake Total 400 / 400 300 / 300 Balance 400 / 400 300 / 300 Weight 155.6 kg Intake: IV 400 / 400 300 / 300 Maxipime Inj 1,000 MG In NS Inj 100 / 100 100 ML @ 200 mls/hr IV.SIG Q12H IAN Rx#:[id number] Zyvox 600 mg Premix 300 ML @ 300 / 300 300 / 300 300 mls/hr IV.SIG Q12H IAN Rx#: [id number] Other: Date of Last Bowel Movement 05/22/18 05/23/18 Narrative: GENERAL: OBTUNDED SKIN: Warm and dry. HEAD: Atraumatic. Normocephalic. EYES: Pupils equal and round. No scleral icterus. No injection or drainage. ENT: No nasal bleeding or discharge. Mucous membranes pink and moist. NECK: Trachea midline. No JVD. CARDIOVASCULAR: Regular rate and rhythm. RESPIRATORY: No accessory muscle use. Clear to auscultation. Breath sounds equal bilaterally. GASTROINTESTINAL: Abdomen soft, non-tender, nondistended. Hepatic and splenic margins not palpable. MUSCULOSKELETAL: Extremities without clubbing, cyanosis, or edema. No obvious deformities. NEUROLOGICAL: Awake and alert. No obvious cranial nerve deficits. Motor grossly within normal limits. Five out of 5 muscle strength in the arms and legs. Normal speech. PSYCHIATRIC: Appropriate mood and affect; insight and judgment normal. - Urinary Catheter Management Indwelling Urethral Catheter Cath placed during this visit: no Results - Labs CBC & Chem 7: 05/22/18 14:00 05/23/18 05:51 Laboratory Results - last 24 hr 05/22/18 05/22/18 05/22/18 12:50 14:00 15:00 WBC 11.2 H RBC 3.70 L Hgb 11.4 L Hct 33.9 L MCV 91.5 MCH 30.7 MCHC 33.5 RDW 17.6 H Plt Count 326 MPV 7.4 Prelim Diff (Auto) Slide review pending Neut % (Auto) 64.5 Lymph % (Auto) 21.1 [place] % (Auto) 8.7 H Eos % (Auto) 4.6 H Baso % (Auto) 1.1 Neut # (Auto) 7.2 Lymph # (Auto) 2.4 [place] # (Auto) 1.0 H Eos # (Auto) 0.5 H Baso # (Auto) 0.1 WBC Differential Manual diff final Seg Neuts % (Manual) 72 H Lymphocytes % (Manual) 13 Monocytes % (Manual) 8 Eosinophils % (Manual) 4 Metamyelocytes % (Man) 1 Myelocytes % (Man) 2 H Abs Neuts (Manual) 8.4 H Differential Comment . Platelet Estimate Normal Platelet Morphology Normal RBC Morphology Normal Sodium 137 Potassium 3.3 L Chloride 92 L Carbon Dioxide 35.4 H Anion Gap 10 BUN 23 H Creatinine 1.13 H Estimated GFR 48 L POC Glucose 135 H Random Glucose 117 H Calcium 8.2 L Total Bilirubin 0.4 AST 19 ALT 25 Alkaline Phosphatase 86 Total Protein 5.8 L Albumin 1.8 L TSH Free T4 05/22/18 05/22/18 05/23/18 17:43 21:10 05:51 WBC RBC Hgb Hct MCV MCH MCHC RDW Plt Count MPV Prelim Diff (Auto) Neut % (Auto) Lymph % (Auto) [place] % (Auto) Eos % (Auto) Baso % (Auto) Neut # (Auto) Lymph # (Auto) [place] # (Auto) Eos # (Auto) Baso # (Auto) WBC Differential Seg Neuts % (Manual) Lymphocytes % (Manual) Monocytes % (Manual) Eosinophils % (Manual) Metamyelocytes % (Man) Myelocytes % (Man) Abs Neuts (Manual) Differential Comment Platelet Estimate Platelet Morphology RBC Morphology Sodium 136 Potassium 3.2 L Chloride 90 L Carbon Dioxide 33.6 H Anion Gap 12 BUN 24 H Creatinine 1.22 H Estimated GFR 44 L POC Glucose 131 H 133 H Random Glucose 135 H Calcium 8.6 Total Bilirubin AST ALT Alkaline Phosphatase Total Protein Albumin TSH 50.800 H Free T4 2.01 H 05/23/18 07:51 WBC RBC Hgb Hct MCV MCH MCHC RDW Plt Count MPV Prelim Diff (Auto) Neut % (Auto) Lymph % (Auto) [place] % (Auto) Eos % (Auto) Baso % (Auto) Neut # (Auto) Lymph # (Auto) [place] # (Auto) Eos # (Auto) Baso # (Auto) WBC Differential Seg Neuts % (Manual) Lymphocytes % (Manual) Monocytes % (Manual) Eosinophils % (Manual) Metamyelocytes % (Man) Myelocytes % (Man) Abs Neuts (Manual) Differential Comment Platelet Estimate Platelet Morphology RBC Morphology Sodium Potassium Chloride Carbon Dioxide Anion Gap BUN Creatinine Estimated GFR POC Glucose 142 H Random Glucose Calcium Total Bilirubin AST ALT Alkaline Phosphatase Total Protein Albumin TSH Free T4 Assessment and Plan - Assessment (1) Respiratory failure with hypoxia and hypercapnia Code(s): J96.91 - Respiratory failure, unspecified with hypoxia; J96.92 - Respiratory failure, unspecified with hypercapnia Status: Acute (2) BETTIE and COPD overlap syndrome Code(s): G47.33 - Obstructive sleep apnea (adult) (pediatric); J44.9 - Chronic obstructive pulmonary disease, unspecified Status: Acute - Plan RESPIRATORY FAILURE BETTIE MORBID OBESITY PLAN loose wt O2 NEEDED BIPAP SLEEP PULM TOILET
[2018-05-24] MEDS: dilTIAZem 60 MG Tablet PO SCH ×3 (00:21→17:08)
[2018-05-24] MEDS: Potassium Phos/Sodium Phos 250 MG Tablet NG/OG SCH ×3 (06:03→22:34)
[2018-05-24] MEDS: Heparin - SQ 10,000 UNITS/ML Vial SQ SCH ×2 (09:49→22:34)
[2018-05-24] MEDS: Nystatin 100,000 UNITS/GM Powder 15 GM Bottle TOPICAL SCH ×2 (09:50→22:34)
[2018-05-24] MEDS: Metoprolol Tartrate 50 MG Tablet PO SCH ×2 (09:50→22:34)
--- NOTE | 2018-05-24 12:48 | P.PNID ---
Subjective Remarks: This is a 72-year-old white female who was admitted to the hospital on 2017 with hypoglycemia. The patient reportedly had a glucose of 15 on arrival of EMS to attend to her. She reportedly was moaning pain as well when she was admitted through the Emergency department. The patient reportedly was on hospice care at home and that was revoked by her family members. She has been attended to by various specialties during this hospitalization. This includes endocrinology,pulmonary, nephrology, cardiology , and also critical care. The patient more recently has been very lethargic. Urine culture was performed on 05/10/2018 and came back with Enterococcus faecium VRE. The patient received ceftriaxone from 04/18-05/04. She was put on linezolid on 05/16/2018. Repeat urine culture was obtained and now has growth of Pseudomonas aeruginosa. Her white count today is 12.8. Previous to that, the white count was normal between 05/05 and today. The last temperature elevation was 100.3 degrees on 05/16/2018. She is currently afebrile. The patient does not open eyes or awaken to me. She is somnolent and does not make any attempt to respond. Chest x-ray on 05/16/2018 showed cardiomegaly with bibasilar airspace disease and probable pleural effusions. The patient has a Frias catheter in place, which has cloudy sediment. Notes reviewed Afebrile Opens eyes when stimulated UC with PSAE And E faecium, not VRE Creatinine better WBC normal Frequent loose stool, C diff negative Frias has been removed Antibiotics: Cefepime Zyvox - finished 05/23 Lines: PIV - No evidence of infection Past Medical History: Reviewed - Hypothyroidism, hypertension, gastroesophageal reflux disease, depression, arthritis, atrial fibrillation, cataract surgery, knee surgery, , and endometrial hyperplasia. Allergies/Adverse Reactions: Allergies aspirin Allergy (Severe, Verified 04/17/18 23:08) wheezing, runny nose, watery eyes Shellfish Allergy (Unknown, Uncoded 04/17/18 23:04) Objective Vital Signs 05/23/18 14:52 05/23/18 16:00 05/23/18 18:00 Temperature 97.2 F L Pulse Rate 89 Respiratory Rate 18 Blood Pressure 105/62 Pulse Oximetry 98 97 98 05/23/18 20:00 05/24/18 00:00 05/24/18 04:00 Temperature 97.9 F 98.1 F 97.4 F L Pulse Rate 77 99 H 94 H Respiratory Rate 20 19 Blood Pressure 121/78 101/67 108/54 L Pulse Oximetry 98 97 93 L 05/24/18 05:36 05/24/18 08:00 Temperature 98.5 F Pulse Rate 88 95 H Respiratory Rate 18 Blood Pressure 118/53 L Pulse Oximetry 97 Intake & Output 05/23/18 05/24/18 05/24/18 18:59 06:59 18:59 Intake Total 100 / 100 Balance 100 / 100 Weight 154.4 kg Intake: IV 100 / 100 Maxipime Inj 1,000 MG In NS Inj 100 / 100 100 ML @ 200 mls/hr IV.SIG Q12H IAN Rx#:[id number] Oral 0 / 0 Other: # Voids 1 1 # Bowel Movements 1 1 Lab - Hematology Results 05/22/18 14:00 WBC 11.2 H RBC 3.70 L Hgb 11.4 L Hct 33.9 L MCV 91.5 MCH 30.7 MCHC 33.5 RDW 17.6 H Plt Count 326 MPV 7.4 Prelim Diff (Auto) Slide review pending Neut % (Auto) 64.5 Lymph % (Auto) 21.1 [place] % (Auto) 8.7 H Eos % (Auto) 4.6 H Baso % (Auto) 1.1 Neut # (Auto) 7.2 Lymph # (Auto) 2.4 [place] # (Auto) 1.0 H Eos # (Auto) 0.5 H Baso # (Auto) 0.1 WBC Differential Manual diff final Seg Neuts % (Manual) 72 H Lymphocytes % (Manual) 13 Monocytes % (Manual) 8 Eosinophils % (Manual) 4 Metamyelocytes % (Man) 1 Myelocytes % (Man) 2 H Abs Neuts (Manual) 8.4 H Differential Comment . Platelet Estimate Normal Platelet Morphology Normal RBC Morphology Normal Lab - Chemistry Results 05/22/18 05/22/18 05/22/18 12:50 15:00 17:43 Sodium 137 Potassium 3.3 L Chloride 92 L Carbon Dioxide 35.4 H Anion Gap 10 BUN 23 H Creatinine 1.13 H Estimated GFR 48 L POC Glucose 135 H 131 H Random Glucose 117 H Calcium 8.2 L Total Bilirubin 0.4 AST 19 ALT 25 Alkaline Phosphatase 86 Total Protein 5.8 L Albumin 1.8 L TSH Free T4 05/22/18 05/23/18 05/23/18 21:10 05:51 07:51 Sodium 136 Potassium 3.2 L Chloride 90 L Carbon Dioxide 33.6 H Anion Gap 12 BUN 24 H Creatinine 1.22 H Estimated GFR 44 L POC Glucose 133 H 142 H Random Glucose 135 H Calcium 8.6 Total Bilirubin AST ALT Alkaline Phosphatase Total Protein Albumin TSH 50.800 H Free T4 2.01 H 05/23/18 05/23/18 05/23/18 13:02 17:38 20:15 Sodium Potassium Chloride Carbon Dioxide Anion Gap BUN Creatinine Estimated GFR POC Glucose 124 H 117 H 116 H Random Glucose Calcium Total Bilirubin AST ALT Alkaline Phosphatase Total Protein Albumin TSH Free T4 05/24/18 08:06 Sodium Potassium Chloride Carbon Dioxide Anion Gap BUN Creatinine Estimated GFR POC Glucose 158 H Random Glucose Calcium Total Bilirubin AST ALT Alkaline Phosphatase Total Protein Albumin TSH Free T4 Physical Exam: Physical Examination GENERAL: awakens when stimulated, NAD HEENT: The head is atraumatic. Extraocular movements are grossly intact. Pupils reactive to light. Oropharyngeal mucosa is dry. No thrush. NECK: Supple, obese LUNGS: Decreased breath sounds throughout. HEART: Irregular rate and rhythm without murmurs, rubs or gallops. ABDOMEN: Obese, decreased bowel sounds. No tenderness appreciated. No palpable mass. EXTREMITIES: No clubbing. No clubbing, cyanosis or edema. SKIN: No rash. Several scabbed lesions including one on the anterior chest and one on the dorsum of the right hand. NEUROLOGIC: awake and responding PSYCHIATRIC: calm LINE: NO evidence of infection Assessment and Plan - Plan IMPRESSION: Urinary tract infection due to Pseudomonas aeruginosa and E faecium - not VRE this time, but R to Ampicillin Altered mental status, better Hypercapnic respiratory failure Acute kidney disease. Morbid obesity. RECOMMENDATIONS: Continue cefepime for Pseudomonas coverage - will determine end date obnce new urine specimen available Repeat UA and C/S - straight cath Monitor progress Monitor mental status
--- NOTE | 2018-05-24 13:43 | P.PN ---
Subjective Interval history: Mrs. Power was afebrile with stable VS overnight. Patient was tired this morning ; she shook her head affirmatively that she was doing ok and made gestures that she was not in pain and did not want anything. Patient did not verbalize responses. Per discussion with nursing staff, patient ate her breakfast this morning. I placed calls to contacts in EMR to discuss her mental status at baseline; I was unable to reach partner or son. Physical Exam Vital signs: Vital Signs 05/23/18 14:52 05/23/18 16:00 05/23/18 18:00 Temperature 97.2 F L Pulse Rate 89 Respiratory Rate 18 Blood Pressure 105/62 Pulse Oximetry 98 97 98 05/23/18 20:00 05/24/18 00:00 05/24/18 04:00 Temperature 97.9 F 98.1 F 97.4 F L Pulse Rate 77 99 H 94 H Respiratory Rate 20 19 Blood Pressure 121/78 101/67 108/54 L Pulse Oximetry 98 97 93 L 05/24/18 05:36 05/24/18 08:00 Temperature 98.5 F Pulse Rate 88 95 H Respiratory Rate 18 Blood Pressure 118/53 L Pulse Oximetry 97 Intake & Output 05/23/18 05/24/18 05/24/18 18:59 06:59 18:59 Intake Total 100 / 100 Balance 100 / 100 Weight 154.4 kg Intake: IV 100 / 100 Maxipime Inj 1,000 MG In NS Inj 100 / 100 100 ML @ 200 mls/hr IV.SIG Q12H IAN Rx#:[id number] Oral 0 / 0 Other: # Voids 1 1 # Bowel Movements 1 1 Narrative: GENERAL: NAD EYES: EOM grossly I CARDIOVASCULAR: Regular rate and rhythm without murmurs, gallops, or rubs. RESPIRATORY: Breath sounds equal bilaterally. Normal sat on NC O2 GASTROINTESTINAL: Abdomen soft, non-tender, nondistended. Obese. Frias catheter in place MUSCULOSKELETAL: Mild bilateral lower extremity edema NEURO: Awake, seemed prone to sleep but would answer questions and oriented to self - Urinary Catheter Management Indwelling Urethral Catheter Cath placed during this visit: no Results - Labs CBC & Chem 7: 05/24/18 15:00 05/23/18 05:51 Laboratory Results - last 24 hr 05/23/18 05/23/18 05/24/18 17:38 20:15 08:06 POC Glucose 117 H 116 H 158 H 05/24/18 12:54 POC Glucose 136 H Assessment and Plan - Assessment (1) Respiratory failure with hypoxia and hypercapnia Code(s): J96.91 - Respiratory failure, unspecified with hypoxia; J96.92 - Respiratory failure, unspecified with hypercapnia Status: Acute (2) BETTIE and COPD overlap syndrome Code(s): G47.33 - Obstructive sleep apnea (adult) (pediatric); J44.9 - Chronic obstructive pulmonary disease, unspecified Status: Acute (3) Hypothyroidism Code(s): E03.9 - Hypothyroidism, unspecified Status: Acute - Plan 72-year-old female admitted secondary to hypoglycemia with renal failure and respiratory failure Encephalopathy Impression: Unclear etiology. I attempted to establish baseline with family without success. Per EMR review, some hypercapnia. Head CT negative 05/14. Hypoglycemia and confusion on admission. No obvious recent electrolyte abnormalities; prior ammonia mildly increased (35 05/19). TSH elevated (50 recently) -repeat ABG today -largely unchanged -Some probably hypothyroidism component; receiving IV Levothyroxine per Endocrine -Will consult Neurology for any additional recommendations Acute hypercapnic hypoxemic respiratory failure was placed on BiPAP. Probably Pickwickian syndrome Pulmonary Infiltrate Respiratory status continues to improve Continue supplementation with oxygen and follow clinically Pulmonology consulted -BIPAP at night Acute renal failure Impression: Cr 1.22 today; seems to be near baseline. Continue monitoring renal function Avoid nephrotoxins Sodium electrolyte disturbance Patient has had problems with hypernatremia and hyponatremia Currently balance Monitor sodium levels UTI. Impression: Pseudomonas aeruginosa and E faecium -ID consulted -Continue Cefepime -Zyvox stopped 05/23 -monitor CBC, UA, C/S -Discussed with ID; will repeat Urine culture -Monitor mental status Poor po intake Dysphagia Continue NG tube feeding If dysphagia improves can consider discontinuation of tube feeding Acute diastolic CHF exacerbation Stabilized Continue Lasix A. fib RVR Rate is now controlled Cardiology following Continue metoprolol and Cardizem Hypothyroidism. Endocrinology consulted -Levothyroxine 500mcg IV -Monitor TSH, T4 -TSH 50 05/23 Diabetes mellitus type 2 Follow blood sugars Insulin sliding scale Diabetic diet Suicidal intent Resolved. 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 Generalized pain Continue pain Management Anemia of chronic disease Stabilized for now Follow CBC Cutaneous candidiasis. Continue nystatin Course of Diflucan completed DVT prophylaxis Lovenox 30 mg subcu every 24 hours Discharge Planning: Discharge pending clinical improvement
[2018-05-24 14:13] LABS: ABG Base Excess 9.8 mmol/L (-2-2); ABG PCO2 44 mmHg (38-42); ABG PO2 74 mmHg (61-120)
--- NOTE | 2018-05-24 15:25 | P.PN ---
Subjective Interval history: easily arousible no distress Physical Exam Vital signs: Vital Signs 05/23/18 16:00 05/23/18 18:00 05/23/18 20:00 Temperature 97.2 F L 97.9 F Pulse Rate 89 77 Respiratory Rate 18 Blood Pressure 105/62 121/78 Pulse Oximetry 97 98 98 05/24/18 00:00 05/24/18 04:00 05/24/18 05:36 Temperature 98.1 F 97.4 F L Pulse Rate 99 H 94 H 88 Respiratory Rate 20 19 Blood Pressure 101/67 108/54 L Pulse Oximetry 97 93 L 05/24/18 08:00 05/24/18 12:00 05/24/18 14:39 Temperature 98.5 F 98.0 F Pulse Rate 95 H 89 Respiratory Rate 18 18 Blood Pressure 118/53 L 98/55 L Pulse Oximetry 97 98 95 Intake & Output 05/23/18 05/24/18 05/24/18 18:59 06:59 18:59 Intake Total 100 / 100 100 / 100 Balance 100 / 100 100 / 100 Weight 154.4 kg Intake: IV 100 / 100 100 / 100 Maxipime Inj 1,000 MG In NS Inj 100 / 100 100 / 100 100 ML @ 200 mls/hr IV.SIG Q12H IAN Rx#:[id number] Oral 0 / 0 Other: # Voids 1 1 # Bowel Movements 1 1 - Urinary Catheter Management Indwelling Urethral Catheter Cath placed during this visit: no Results - Labs CBC & Chem 7: 05/22/18 14:00 05/23/18 05:51 Laboratory Results - last 24 hr 05/23/18 05/23/18 05/24/18 17:38 20:15 08:06 Puncture Site Patient Temperature O2 Saturation ABG pH ABG pCO2 ABG pO2 ABG HCO3 ABG O2 Content ABG Base Excess ABG Methemoglobin Rowdy Test Hemoglobin Carboxyhemoglobin O2 Delivery Device Liter Flow Inspired O2 Critical Value POC Glucose 117 H 116 H 158 H 05/24/18 05/24/18 12:54 13:52 Puncture Site Left radial Patient Temperature 98.6 O2 Saturation 93 ABG pH 7.50 H ABG pCO2 44 H ABG pO2 74 ABG HCO3 34 H ABG O2 Content 16.7 ABG Base Excess 9.8 H ABG Methemoglobin 0.9 Rowdy Test Present Hemoglobin 12.8 Carboxyhemoglobin 1.4 O2 Delivery Device Nasal cannula Liter Flow 3.00 Inspired O2 21 Critical Value No POC Glucose 136 H Assessment and Plan - Assessment (1) Respiratory failure with hypoxia and hypercapnia Code(s): J96.91 - Respiratory failure, unspecified with hypoxia; J96.92 - Respiratory failure, unspecified with hypercapnia Status: Acute (2) BETTIE and COPD overlap syndrome Code(s): G47.33 - Obstructive sleep apnea (adult) (pediatric); J44.9 - Chronic obstructive pulmonary disease, unspecified Status: Acute - Plan RESPIRATORY FAILURE BETTIE MORBID OBESITY PLAN loose wt O2 NEEDED BIPAP SLEEP PULM TOILET
[2018-05-24 16:14] LABS: Baso # (Auto) 0.1 th/mm3 (0.0-0.2); Baso % (Auto) 0.8 % (0.0-2.0); Eos # (Auto) 0.2 th/mm3 (0.0-0.4); Eos % (Auto) 1.8 % (0.0-4.0); Hemoglobin 10.9 gm/dL (11.6-15.3); Lymph # (Auto) 2.5 th/mm3 (1.0-4.8); Lymph % (Auto) 23.2 % (9.0-44.0); Mean Corpuscular HGB Conc 34.1 % (32.0-36.0); Mean Corpuscular Hemoglobin 31.5 pg (27.0-34.0); Mean Corpuscular Volume 92.3 fL (80.0-100.0); Mean Platelet Volume 7.4 fL (7.0-11.0); Mono # (Auto) 1.2 th/mm3 (0.0-0.9); Mono % (Auto) 11.3 % (0.0-8.0); Neut # (Auto) 6.7 th/mm3 (1.8-7.7); Neut % (Auto) 62.9 % (16.0-70.0); Platelet Count 318 th/mm3 (150-450); Red Blood Count 3.46 mil/mm3 (4.00-5.30); Red Cell Distribution Width 17.8 % (11.6-17.2); White Blood Count 10.6 th/mm3 (4.0-11.0)
[2018-05-24 16:48] LABS: Calcium 7.5 mg/dL (8.5-10.1); Carbon Dioxide 32.3 meq/L (21.0-32.0)
[2018-05-24 16:56] LABS: Potassium 2.7 meq/L (3.5-5.1)
[2018-05-24 17:11] LABS: Eosinophils 5 % (0-4); Lymphocytes 10 % (9-44); Monocytes 7 % (0-8)
[2018-05-24 17:13] LABS: Platelet Estimate Normal (Normal); Platelet Morphology Normal (Normal); Spherocytes 1+; Stomatocytes 1+
--- NOTE | 2018-05-24 17:32 | P.PNNEU ---
Subjective Subjective Comments: more lethargic Active Medications: Active Medications Generic Name Dose Route Start Last Admin Trade Name Freq PRN Reason Stop Dose Admin Acetaminophen 650 mg 05/20/18 00:00 Tylenol PO Q4H PRN SEE LABEL COMMENTS Hydrocodone Bitart/Acetaminophen 1 tab 05/20/18 00:00 05/22/18 09:40 [place] 5/325 PO 1 tab Q6H PRN Administration PAIN 2 TO 5 Al Hydroxide/Mg Hydroxide 30 ml 05/20/18 00:00 Milk Of Magnesia Liq PO Q12H PRN MILD CONSTIPATION Albuterol 1 ampul 05/20/18 00:00 Duoneb Neb (Prn) NEB Q2HR NEB PRN SHORT OF BREATH Apixaban 5 mg 05/20/18 09:00 05/24/18 09:48 Eliquis PO 5 mg BID IAN Administration Bisacodyl 10 mg 05/20/18 00:00 Dulcolax Supp RECTAL Q24H PRN SEVERE CONSITIPATION Bupropion HCl 150 mg 05/20/18 09:00 Wellbutrin Sr PO DAILY IAN Buspirone HCl 5 mg 05/20/18 09:00 Buspar PO BID IAN Dextrose 50 ml 05/20/18 00:00 D50w Vial IV.PUSH UNSCH PRN PER HYPOGLYCEMIA PROTOCOL Diltiazem HCl 60 mg 05/20/18 00:00 05/24/18 17:08 Cardizem PO Not Given Q6H INA Diphenhydramine HCl 25 mg 05/20/18 00:00 Benadryl PO Q4H PRN SEE LABEL COMMENTS Furosemide 40 mg 05/20/18 09:00 05/24/18 09:49 Lasix Inj IV.PUSH 40 mg DAILY IAN Administration Glucagon 1 mg 05/20/18 00:00 Glucagon Inj OTHER PRN PRN for Hypoglycemia Protocol Haloperidol Lactate 5 mg 05/20/18 00:01 Haldol Inj IV.PUSH Q1H PRN ANXIETY AND/OR AGITATION Heparin Sodium (Porcine) 5,000 units 05/20/18 09:00 05/24/18 09:49 Heparin Inj SQ 5,000 units BID IAN Administration Cefepime HCl 1,000 mg/ Sodium 100 mls @ 200 mls/hr 05/20/18 00:00 05/24/18 13 :50 Chloride IV.SIG 100 mls/hr Q12H IAN Administration Sodium Phosphate 30 mmol/ 260 mls @ 43.333 mls/hr 05/20/18 00:00 Sodium Chloride IV.SIG UNSCH PRN SEE LABEL COMMENTS Insulin Aspart 0 unit 05/20/18 08:00 05/23/18 17:39 Novolog Insulin Suppl Scale Inj SQ Not Given ACHS [facility] Protocol Labetalol HCl 10 mg 05/20/18 00:00 Trandate Inj IV.PUSH Q4H PRN HR > 110 , SBP > 110 Metoprolol Tartrate 5 mg 05/20/18 00:01 Lopressor Inj IV.PUSH Q6H PRN FOR HR > 120 IF UNABLE PO Metoprolol Tartrate 50 mg 05/20/18 09:00 05/24/18 09:50 Lopressor PO 50 mg BID IAN Administration Montelukast Sodium 10 mg 05/20/18 21:00 05/23/18 20:38 Singulair PO 10 mg HS IAN Administration Morphine Sulfate 2 mg 05/20/18 00:00 Morphine Inj IV.PUSH Q4H PRN BREAKTHROUGH PAIN 6-10 Naloxone HCl 0.4 mg 05/20/18 00:00 Narcan Inj IV.PUSH UNSCH PRN SEE DOSE INSTRUCTIONS Nystatin 1 applicatio 05/20/18 09:00 05/24/18 09:50 Mycostatin Powder TOPICAL 1 applicatio Q12H IAN Administration Pantoprazole Sodium 40 mg 05/20/18 09:00 05/24/18 09:49 Protonix PO 40 mg DAILY IAN Administration Potassium Bicarbonate 50 meq 05/20/18 00:00 Effer-K PO UNSCH PRN Potassium 3.3-3.5 mEq/L Potassium Chloride 40 meq 05/24/18 17:15 K-Dur PO 05/24/18 17:16 ONCE ONE Potassium Chloride 30 meq 05/24/18 20:00 Klor-Con 10 PO 05/24/18 20:01 ONCE ONE Potassium Chloride 40 meq 05/20/18 00:00 Kcl 40 Meq/30 Ml Liq PO UNSCH PRN NEEDED Potassium Phos/Sodium Phos 250 mg 05/20/18 06:00 05/24/18 13:50 K-Phos Neutral NG/OG 250 mg Q8HR AIN Administration Potassium Phosphate 2,000 mg 05/20/18 00:00 K-Phos Original PO Q4H PRN Phosphorus Less Than 2.5 mg/dL Potassium Phosphate 2,000 mg 05/20/18 00:00 K-Phos Original PO UNSCH PRN NEEDED Quetiapine Fumarate 25 mg 05/20/18 09:00 Seroquel PO BID@0900,1200 PRN AGITATION AND/OR HALLUCINATION Quetiapine Fumarate 50 mg 05/20/18 21:00 Seroquel PO HS IAN Trazodone HCl 150 mg 05/20/18 21:00 05/23/18 20:38 Desyrel PO 100 mg HS IAN Administration Vitamin D 2,000 unit 05/20/18 09:00 05/24/18 09:48 Vitamin D3 PO 1,000 unit DAILY IAN Administration Ziprasidone 10 mg 05/20/18 00:00 Geodon Inj IM Q12H PRN AGITATION Allergies/Adverse Reactions: Allergies Allergy/AdvReac Type Severity Reaction Status Date / Time aspirin Allergy Severe wheezing, Verified 04/17/18 23:08 runny nose, watery eyes Shellfish Allergy Unknown Uncoded 04/17/18 23:04 Physical Exam Vital signs: Vital Signs 05/23/18 18:00 05/23/18 20:00 05/24/18 00:00 Temperature 97.9 F 98.1 F Pulse Rate 77 99 H Respiratory Rate 20 Blood Pressure 121/78 101/67 Pulse Oximetry 98 98 97 05/24/18 04:00 05/24/18 05:36 05/24/18 07:36 Temperature 97.4 F L Pulse Rate 94 H 88 97 H Respiratory Rate 19 Blood Pressure 108/54 L Pulse Oximetry 93 L 05/24/18 08:00 05/24/18 12:00 05/24/18 14:39 Temperature 98.5 F 98.0 F Pulse Rate 95 H 89 Respiratory Rate 18 18 Blood Pressure 118/53 L 98/55 L Pulse Oximetry 97 98 95 05/24/18 16:00 Temperature 98.1 F Pulse Rate 88 Respiratory Rate 18 Blood Pressure 97/56 L Pulse Oximetry 97 Intake & Output 05/23/18 05/24/18 05/24/18 18:59 06:59 18:59 Intake Total 100 / 100 100 / 100 Balance 100 / 100 100 / 100 Weight 154.4 kg Intake: IV 100 / 100 100 / 100 Maxipime Inj 1,000 MG In NS Inj 100 / 100 100 / 100 100 ML @ 200 mls/hr IV.SIG Q12H IAN Rx#:[id number] Oral 0 / 0 Other: # Voids 1 1 # Bowel Movements 1 1 Narrative: lethargic mumbles moves all ext well eyes open - Urinary Catheter Management Indwelling Urethral Catheter Cath placed during this visit: no Objective Laboratory Results - last 24 hr 05/23/18 05/23/18 05/24/18 17:38 20:15 08:06 WBC RBC Hgb Hct MCV MCH MCHC RDW Plt Count MPV Prelim Diff (Auto) Neut % (Auto) Lymph % (Auto) [place] % (Auto) Eos % (Auto) Baso % (Auto) Neut # (Auto) Lymph # (Auto) [place] # (Auto) Eos # (Auto) Baso # (Auto) WBC Differential Seg Neuts % (Manual) Lymphocytes % (Manual) Monocytes % (Manual) Eosinophils % (Manual) Abs Neuts (Manual) Differential Comment Platelet Estimate Platelet Morphology Spherocytes Stomatocytes Puncture Site Patient Temperature O2 Saturation ABG pH ABG pCO2 ABG pO2 ABG HCO3 ABG O2 Content ABG Base Excess ABG Methemoglobin Rowdy Test Hemoglobin Carboxyhemoglobin O2 Delivery Device Liter Flow Inspired O2 Critical Value Sodium Potassium Chloride Carbon Dioxide Anion Gap BUN Creatinine Estimated GFR POC Glucose 117 H 116 H 158 H Random Glucose Calcium 05/24/18 05/24/18 05/24/18 12:54 13:52 15:00 WBC 10.6 RBC 3.46 L Hgb 10.9 L Hct 32.0 L MCV 92.3 MCH 31.5 MCHC 34.1 RDW 17.8 H Plt Count 318 MPV 7.4 Prelim Diff (Auto) Slide review pending Neut % (Auto) 62.9 Lymph % (Auto) 23.2 [place] % (Auto) 11.3 H Eos % (Auto) 1.8 Baso % (Auto) 0.8 Neut # (Auto) 6.7 Lymph # (Auto) 2.5 [place] # (Auto) 1.2 H Eos # (Auto) 0.2 Baso # (Auto) 0.1 WBC Differential Manual diff final Seg Neuts % (Manual) 78 H Lymphocytes % (Manual) 10 Monocytes % (Manual) 7 Eosinophils % (Manual) 5 H Abs Neuts (Manual) 8.3 H Differential Comment . Platelet Estimate Normal Platelet Morphology Normal Spherocytes 1+ H Stomatocytes 1+ H Puncture Site Left radial Patient Temperature 98.6 O2 Saturation 93 ABG pH 7.50 H ABG pCO2 44 H ABG pO2 74 ABG HCO3 34 H ABG O2 Content 16.7 ABG Base Excess 9.8 H ABG Methemoglobin 0.9 Rowdy Test Present Hemoglobin 12.8 Carboxyhemoglobin 1.4 O2 Delivery Device Nasal cannula Liter Flow 3.00 Inspired O2 21 Critical Value No Sodium Potassium Chloride Carbon Dioxide Anion Gap BUN Creatinine Estimated GFR POC Glucose 136 H Random Glucose Calcium 05/24/18 05/24/18 15:00 17:02 WBC RBC Hgb Hct MCV MCH MCHC RDW Plt Count MPV Prelim Diff (Auto) Neut % (Auto) Lymph % (Auto) [place] % (Auto) Eos % (Auto) Baso % (Auto) Neut # (Auto) Lymph # (Auto) [place] # (Auto) Eos # (Auto) Baso # (Auto) WBC Differential Seg Neuts % (Manual) Lymphocytes % (Manual) Monocytes % (Manual) Eosinophils % (Manual) Abs Neuts (Manual) Differential Comment Platelet Estimate Platelet Morphology Spherocytes Stomatocytes Puncture Site Patient Temperature O2 Saturation ABG pH ABG pCO2 ABG pO2 ABG HCO3 ABG O2 Content ABG Base Excess ABG Methemoglobin Rowdy Test Hemoglobin Carboxyhemoglobin O2 Delivery Device Liter Flow Inspired O2 Critical Value Sodium 136 Potassium 2.7 L* Chloride 92 L Carbon Dioxide 32.3 H Anion Gap 12 BUN 24 H Creatinine 1.44 H Estimated GFR 36 L POC Glucose 146 H Random Glucose 104 Calcium 7.5 L D Review/Management - Review/Management Plan: imp b12 mri eeg ok 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
--- NOTE | 2018-05-24 18:47 | P.PNEN ---
Subjective Interval history: Patient currently not doing well has been lethargic. Has received another dose of Levothyroxine 500 mcg IV yesterday but this morning labs not drawn. Currently patient is asleep. Physical Exam Vital signs: Vital Signs 05/23/18 20:00 05/24/18 00:00 05/24/18 04:00 Temperature 97.9 F 98.1 F 97.4 F L Pulse Rate 77 99 H 94 H Respiratory Rate 20 19 Blood Pressure 121/78 101/67 108/54 L Pulse Oximetry 98 97 93 L 05/24/18 05:36 05/24/18 07:36 05/24/18 08:00 Temperature 98.5 F Pulse Rate 88 97 H 95 H Respiratory Rate 18 Blood Pressure 118/53 L Pulse Oximetry 97 05/24/18 12:00 05/24/18 14:39 05/24/18 16:00 Temperature 98.0 F 98.1 F Pulse Rate 89 88 Respiratory Rate 18 18 Blood Pressure 98/55 L 97/56 L Pulse Oximetry 98 95 97 Intake & Output 05/23/18 05/24/18 05/24/18 18:59 06:59 18:59 Intake Total 100 / 100 100 / 100 Balance 100 / 100 100 / 100 Weight 154.4 kg Intake: IV 100 / 100 100 / 100 Maxipime Inj 1,000 MG In NS Inj 100 / 100 100 / 100 100 ML @ 200 mls/hr IV.SIG Q12H IAN Rx#:[id number] Oral 0 / 0 Other: # Voids 1 1 # Bowel Movements 1 1 - Urinary Catheter Management Indwelling Urethral Catheter Cath placed during this visit: no Assessment and Plan - Assessment (1) Hypothyroidism Code(s): E03.9 - Hypothyroidism, unspecified Status: Acute - Plan Severe Hypothyroidism: Labs reviewed. Patient has received second dose of Levothyroxine 500 mcg yesterday. Will get stat TSH and Free T4 now and will get another dose of Levothyroxine 500 mcg IV push HARMONY. Will repeat her Labs QAM x 5 days in the morning and follow. Orders entered in system.
[2018-05-24 21:03] LABS: Free T4 (Free Thyroxine) 1.9 ng/dL (0.76-1.46); Thyroid Stimulating Hormone 19.3 uIU/mL (0.358-3.740)
[2018-05-24] MEDS: Insulin NovoLOG Aspart Correctional Sugar Inj SQ SCH (21:18)
[2018-05-24] MEDS: Montelukast 10 MG Tablet PO SCH (22:34)
[2018-05-25] MEDS: Potassium Phos/Sodium Phos 250 MG Tablet NG/OG SCH ×3 (06:54→21:09)
[2018-05-25] MEDS: dilTIAZem 60 MG Tablet PO SCH ×3 (06:55→17:09)
--- NOTE | 2018-05-25 07:22 | P.PNNEU ---
Subjective Subjective Comments: No acute events reported No headache No chest pain No dyspnea Active Medications: Active Medications Generic Name Dose Route Start Last Admin Trade Name Freq PRN Reason Stop Dose Admin Acetaminophen 650 mg 05/20/18 00:00 Tylenol PO Q4H PRN SEE LABEL COMMENTS Al Hydroxide/Mg Hydroxide 30 ml 05/20/18 00:00 Milk Of Magnesia Liq PO Q12H PRN MILD CONSTIPATION Albuterol 1 ampul 05/20/18 00:00 Duoneb Neb (Prn) NEB Q2HR NEB PRN SHORT OF BREATH Apixaban 5 mg 05/20/18 09:00 05/24/18 22:33 Eliquis PO 5 mg BID IAN Administration Bisacodyl 10 mg 05/20/18 00:00 Dulcolax Supp RECTAL Q24H PRN SEVERE CONSITIPATION Bupropion HCl 150 mg 05/20/18 09:00 Wellbutrin Sr PO DAILY IAN Buspirone HCl 5 mg 05/20/18 09:00 Buspar PO BID IAN Dextrose 50 ml 05/20/18 00:00 D50w Vial IV.PUSH UNSCH PRN PER HYPOGLYCEMIA PROTOCOL Diltiazem HCl 60 mg 05/20/18 00:00 05/25/18 06:55 Cardizem PO 60 mg Q6H IAN Administration Diphenhydramine HCl 25 mg 05/20/18 00:00 Benadryl PO Q4H PRN SEE LABEL COMMENTS Furosemide 40 mg 05/20/18 09:00 05/24/18 09:49 Lasix Inj IV.PUSH 40 mg DAILY IAN Administration Glucagon 1 mg 05/20/18 00:00 Glucagon Inj OTHER PRN PRN for Hypoglycemia Protocol Heparin Sodium (Porcine) 5,000 units 05/20/18 09:00 05/24/18 22:34 Heparin Inj SQ 5,000 units BID IAN Administration Cefepime HCl 1,000 mg/ Sodium 100 mls @ 200 mls/hr 05/20/18 00:00 05/25/18 06 :54 Chloride IV.SIG 100 mls/hr Q12H IAN Administration Sodium Phosphate 30 mmol/ 260 mls @ 43.333 mls/hr 05/20/18 00:00 Sodium Chloride IV.SIG UNSCH PRN SEE LABEL COMMENTS Insulin Aspart 0 unit 05/20/18 08:00 05/24/18 21:18 Novolog Insulin Suppl Scale Inj SQ Not Given ACHS [facility] Protocol Labetalol HCl 10 mg 05/20/18 00:00 Trandate Inj IV.PUSH Q4H PRN HR > 110 , SBP > 110 Metoprolol Tartrate 5 mg 05/20/18 00:01 Lopressor Inj IV.PUSH Q6H PRN FOR HR > 120 IF UNABLE PO Metoprolol Tartrate 50 mg 05/20/18 09:00 05/24/18 22:34 Lopressor PO 50 mg BID IAN Administration Montelukast Sodium 10 mg 05/20/18 21:00 05/24/18 22:34 Singulair PO 10 mg HS [facility] Administration Morphine Sulfate 2 mg 05/20/18 00:00 Morphine Inj IV.PUSH Q4H PRN BREAKTHROUGH PAIN 6-10 Naloxone HCl 0.4 mg 05/20/18 00:00 Narcan Inj IV.PUSH UNSCH PRN SEE DOSE INSTRUCTIONS Nystatin 1 applicatio 05/20/18 09:00 05/24/18 22:34 Mycostatin Powder TOPICAL 1 applicatio Q12H IAN Administration Pantoprazole Sodium 40 mg 05/20/18 09:00 05/24/18 09:49 Protonix PO 40 mg DAILY IAN Administration Potassium Bicarbonate 50 meq 05/20/18 00:00 Effer-K PO UNSCH PRN Potassium 3.3-3.5 mEq/L Potassium Chloride 40 meq 05/20/18 00:00 Kcl 40 Meq/30 Ml Liq PO UNSCH PRN NEEDED Potassium Phos/Sodium Phos 250 mg 05/20/18 06:00 05/25/18 06:54 K-Phos Neutral NG/OG 250 mg Q8HR IAN Administration Potassium Phosphate 2,000 mg 05/20/18 00:00 K-Phos Original PO Q4H PRN Phosphorus Less Than 2.5 mg/dL Potassium Phosphate 2,000 mg 05/20/18 00:00 K-Phos Original PO UNSCH PRN NEEDED Quetiapine Fumarate 50 mg 05/20/18 21:00 Seroquel PO HS [facility] Vitamin D 2,000 unit 05/20/18 09:00 05/24/18 09:48 Vitamin D3 PO 1,000 unit DAILY IAN Administration Allergies/Adverse Reactions: Allergies Allergy/AdvReac Type Severity Reaction Status Date / Time aspirin Allergy Severe wheezing, Verified 04/17/18 23:08 runny nose, watery eyes Shellfish Allergy Unknown Uncoded 04/17/18 23:04 Physical Exam Vital signs: Vital Signs 05/24/18 07:36 05/24/18 08:00 05/24/18 12:00 Temperature 98.5 F 98.0 F Pulse Rate 97 H 89 55 L Respiratory Rate 18 18 Blood Pressure 118/53 L 98/55 L Pulse Oximetry 97 98 05/24/18 14:39 05/24/18 16:00 05/24/18 20:00 Temperature 98.1 F 98.2 F Pulse Rate 60 98 H Respiratory Rate 18 20 Blood Pressure 97/56 L 103/57 L Pulse Oximetry 95 97 98 05/25/18 00:00 05/25/18 04:00 Temperature 98.5 F 98.5 F Pulse Rate 92 H 96 H Respiratory Rate 20 18 Blood Pressure 118/54 L 130/62 Pulse Oximetry 97 97 Intake & Output 05/24/18 05/25/18 05/25/18 18:59 06:59 18:59 Intake Total 580 / 580 Output Total 0 / 0 Balance 580 / 580 Weight 155 kg Intake: IV 100 / 100 Maxipime Inj 1,000 MG In NS Inj 100 / 100 100 ML @ 200 mls/hr IV.SIG Q12H IAN Rx#:[id number] Oral 480 / 480 Output: Urine 0 / 0 Other: Date of Last Bowel Movement 05/24/18 Narrative: She is less lethargic and shows me a thumbs up and voice is a bit stronger moves all ext well eyes open - Urinary Catheter Management Indwelling Urethral Catheter Cath placed during this visit: no Objective Laboratory Results - last 24 hr 05/24/18 05/24/18 05/24/18 08:06 12:54 13:52 WBC RBC Hgb Hct MCV MCH MCHC RDW Plt Count MPV Prelim Diff (Auto) Neut % (Auto) Lymph % (Auto) [place] % (Auto) Eos % (Auto) Baso % (Auto) Neut # (Auto) Lymph # (Auto) [place] # (Auto) Eos # (Auto) Baso # (Auto) WBC Differential Seg Neuts % (Manual) Lymphocytes % (Manual) Monocytes % (Manual) Eosinophils % (Manual) Abs Neuts (Manual) Differential Comment Platelet Estimate Platelet Morphology Spherocytes Stomatocytes Puncture Site Left radial Patient Temperature 98.6 O2 Saturation 93 ABG pH 7.50 H ABG pCO2 44 H ABG pO2 74 ABG HCO3 34 H ABG O2 Content 16.7 ABG Base Excess 9.8 H ABG Methemoglobin 0.9 Rowdy Test Present Hemoglobin 12.8 Carboxyhemoglobin 1.4 O2 Delivery Device Nasal cannula Liter Flow 3.00 Inspired O2 21 Critical Value No Sodium Potassium Chloride Carbon Dioxide Anion Gap BUN Creatinine Estimated GFR POC Glucose 158 H 136 H Random Glucose Calcium TSH Free T4 05/24/18 05/24/18 05/24/18 15:00 15:00 17:02 WBC 10.6 RBC 3.46 L Hgb 10.9 L Hct 32.0 L MCV 92.3 MCH 31.5 MCHC 34.1 RDW 17.8 H Plt Count 318 MPV 7.4 Prelim Diff (Auto) Slide review pending Neut % (Auto) 62.9 Lymph % (Auto) 23.2 [place] % (Auto) 11.3 H Eos % (Auto) 1.8 Baso % (Auto) 0.8 Neut # (Auto) 6.7 Lymph # (Auto) 2.5 [place] # (Auto) 1.2 H Eos # (Auto) 0.2 Baso # (Auto) 0.1 WBC Differential Manual diff final Seg Neuts % (Manual) 78 H Lymphocytes % (Manual) 10 Monocytes % (Manual) 7 Eosinophils % (Manual) 5 H Abs Neuts (Manual) 8.3 H Differential Comment . Platelet Estimate Normal Platelet Morphology Normal Spherocytes 1+ H Stomatocytes 1+ H Puncture Site Patient Temperature O2 Saturation ABG pH ABG pCO2 ABG pO2 ABG HCO3 ABG O2 Content ABG Base Excess ABG Methemoglobin Rowdy Test Hemoglobin Carboxyhemoglobin O2 Delivery Device Liter Flow Inspired O2 Critical Value Sodium 136 Potassium 2.7 L* Chloride 92 L Carbon Dioxide 32.3 H Anion Gap 12 BUN 24 H Creatinine 1.44 H Estimated GFR 36 L POC Glucose 146 H Random Glucose 104 Calcium 7.5 L D TSH Free T4 05/24/18 05/24/18 20:10 20:26 WBC RBC Hgb Hct MCV MCH MCHC RDW Plt Count MPV Prelim Diff (Auto) Neut % (Auto) Lymph % (Auto) [place] % (Auto) Eos % (Auto) Baso % (Auto) Neut # (Auto) Lymph # (Auto) [place] # (Auto) Eos # (Auto) Baso # (Auto) WBC Differential Seg Neuts % (Manual) Lymphocytes % (Manual) Monocytes % (Manual) Eosinophils % (Manual) Abs Neuts (Manual) Differential Comment Platelet Estimate Platelet Morphology Spherocytes Stomatocytes Puncture Site Patient Temperature O2 Saturation ABG pH ABG pCO2 ABG pO2 ABG HCO3 ABG O2 Content ABG Base Excess ABG Methemoglobin Rowdy Test Hemoglobin Carboxyhemoglobin O2 Delivery Device Liter Flow Inspired O2 Critical Value Sodium Potassium Chloride Carbon Dioxide Anion Gap BUN Creatinine Estimated GFR POC Glucose 136 H Random Glucose Calcium TSH 19.300 H Free T4 1.90 H Review/Management - Review/Management Plan: imp b12 mri eeg ok 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 Her ABG yesterday was negative. I would limit her antipsychotics if possible.
[2018-05-25] MEDS: Insulin NovoLOG Aspart Correctional Sugar Inj SQ SCH ×3 (08:36→21:10)
--- NOTE | 2018-05-25 09:12 | P.PN ---
Subjective Interval history: EASILY AROUSIBLE NO DISTRESS Physical Exam Vital signs: Vital Signs 05/24/18 12:00 05/24/18 14:39 05/24/18 16:00 Temperature 98.0 F 98.1 F Pulse Rate 55 L 60 Respiratory Rate 18 18 Blood Pressure 98/55 L 97/56 L Pulse Oximetry 98 95 97 05/24/18 20:00 05/24/18 23:45 05/25/18 00:00 Temperature 98.2 F 98.5 F Pulse Rate 98 H 96 H 92 H Respiratory Rate 20 20 Blood Pressure 103/57 L 118/54 L Pulse Oximetry 98 97 05/25/18 03:40 05/25/18 04:00 05/25/18 08:00 Temperature 98.5 F 97.4 F L Pulse Rate 102 H 96 H 101 H Respiratory Rate 18 20 Blood Pressure 130/62 96/46 L Pulse Oximetry 97 98 Intake & Output 05/24/18 05/25/18 05/25/18 18:59 06:59 18:59 Intake Total 580 / 580 0 / 0 Output Total 0 / 0 Balance 580 / 580 0 / 0 Weight 155 kg Intake: IV 100 / 100 Maxipime Inj 1,000 MG In NS Inj 100 / 100 100 ML @ 200 mls/hr IV.SIG Q12H IAN Rx#:[id number] Oral 480 / 480 0 / 0 Output: Urine 0 / 0 Other: # Voids 1 Date of Last Bowel Movement 05/24/18 05/25/18 # Bowel Movements 1 - Urinary Catheter Management Indwelling Urethral Catheter Cath placed during this visit: no Results - Labs CBC & Chem 7: 05/24/18 15:00 05/24/18 15:00 Laboratory Results - last 24 hr 05/24/18 05/24/18 05/24/18 12:54 13:52 15:00 WBC 10.6 RBC 3.46 L Hgb 10.9 L Hct 32.0 L MCV 92.3 MCH 31.5 MCHC 34.1 RDW 17.8 H Plt Count 318 MPV 7.4 Prelim Diff (Auto) Slide review pending Neut % (Auto) 62.9 Lymph % (Auto) 23.2 [place] % (Auto) 11.3 H Eos % (Auto) 1.8 Baso % (Auto) 0.8 Neut # (Auto) 6.7 Lymph # (Auto) 2.5 [place] # (Auto) 1.2 H Eos # (Auto) 0.2 Baso # (Auto) 0.1 WBC Differential Manual diff final Seg Neuts % (Manual) 78 H Lymphocytes % (Manual) 10 Monocytes % (Manual) 7 Eosinophils % (Manual) 5 H Abs Neuts (Manual) 8.3 H Differential Comment . Platelet Estimate Normal Platelet Morphology Normal Spherocytes 1+ H Stomatocytes 1+ H Puncture Site Left radial Patient Temperature 98.6 O2 Saturation 93 ABG pH 7.50 H ABG pCO2 44 H ABG pO2 74 ABG HCO3 34 H ABG O2 Content 16.7 ABG Base Excess 9.8 H ABG Methemoglobin 0.9 Rowdy Test Present Hemoglobin 12.8 Carboxyhemoglobin 1.4 O2 Delivery Device Nasal cannula Liter Flow 3.00 Inspired O2 21 Critical Value No Sodium Potassium Chloride Carbon Dioxide Anion Gap BUN Creatinine Estimated GFR POC Glucose 136 H Random Glucose Calcium TSH Free T4 05/24/18 05/24/18 05/24/18 15:00 17:02 20:10 WBC RBC Hgb Hct MCV MCH MCHC RDW Plt Count MPV Prelim Diff (Auto) Neut % (Auto) Lymph % (Auto) [place] % (Auto) Eos % (Auto) Baso % (Auto) Neut # (Auto) Lymph # (Auto) [place] # (Auto) Eos # (Auto) Baso # (Auto) WBC Differential Seg Neuts % (Manual) Lymphocytes % (Manual) Monocytes % (Manual) Eosinophils % (Manual) Abs Neuts (Manual) Differential Comment Platelet Estimate Platelet Morphology Spherocytes Stomatocytes Puncture Site Patient Temperature O2 Saturation ABG pH ABG pCO2 ABG pO2 ABG HCO3 ABG O2 Content ABG Base Excess ABG Methemoglobin Rowdy Test Hemoglobin Carboxyhemoglobin O2 Delivery Device Liter Flow Inspired O2 Critical Value Sodium 136 Potassium 2.7 L* Chloride 92 L Carbon Dioxide 32.3 H Anion Gap 12 BUN 24 H Creatinine 1.44 H Estimated GFR 36 L POC Glucose 146 H Random Glucose 104 Calcium 7.5 L D TSH 19.300 H Free T4 1.90 H 05/24/18 05/25/18 20:26 08:17 WBC RBC Hgb Hct MCV MCH MCHC RDW Plt Count MPV Prelim Diff (Auto) Neut % (Auto) Lymph % (Auto) [place] % (Auto) Eos % (Auto) Baso % (Auto) Neut # (Auto) Lymph # (Auto) [place] # (Auto) Eos # (Auto) Baso # (Auto) WBC Differential Seg Neuts % (Manual) Lymphocytes % (Manual) Monocytes % (Manual) Eosinophils % (Manual) Abs Neuts (Manual) Differential Comment Platelet Estimate Platelet Morphology Spherocytes Stomatocytes Puncture Site Patient Temperature O2 Saturation ABG pH ABG pCO2 ABG pO2 ABG HCO3 ABG O2 Content ABG Base Excess ABG Methemoglobin Rowdy Test Hemoglobin Carboxyhemoglobin O2 Delivery Device Liter Flow Inspired O2 Critical Value Sodium Potassium Chloride Carbon Dioxide Anion Gap BUN Creatinine Estimated GFR POC Glucose 136 H 120 H Random Glucose Calcium TSH Free T4 Assessment and Plan - Assessment (1) Respiratory failure with hypoxia and hypercapnia Code(s): J96.91 - Respiratory failure, unspecified with hypoxia; J96.92 - Respiratory failure, unspecified with hypercapnia Status: Acute (2) BETTIE and COPD overlap syndrome Code(s): G47.33 - Obstructive sleep apnea (adult) (pediatric); J44.9 - Chronic obstructive pulmonary disease, unspecified Status: Acute - Plan RESPIRATORY FAILURE BETTIE MORBID OBESITY PLAN loose wt O2 NEEDED BIPAP SLEEP PULM TOILET ABG,CXRAY
[2018-05-25 10:13] LABS: ABG Base Excess 8.6 mmol/L (-2-2); ABG PCO2 45 mmHg (38-42); ABG PO2 63 mmHG (61-120)
[2018-05-25] MEDS: Metoprolol Tartrate 50 MG Tablet PO SCH ×2 (10:22→21:10)
[2018-05-25] MEDS: Heparin - SQ 10,000 UNITS/ML Vial SQ SCH ×2 (10:23→21:09)
[2018-05-25] MEDS: Nystatin 100,000 UNITS/GM Powder 15 GM Bottle TOPICAL SCH ×2 (10:24→21:10)
--- NOTE | 2018-05-25 10:52 | XR ---
EXAM DATE: 05/25/2018 10:38 AM EDT AGE/SEX: 72 years / Female INDICATIONS: Congestion. CLINICAL DATA: This is the patient's initial encounter. Patient reports that signs and symptoms have been present for 1 day and indicates a pain score of Nonresponsive. MEDICAL/SURGICAL HISTORY: Diabetes mellitus type II. Hypertension. Cataract. section . COMPARISON: [facility], [facility], 05/16/2018. . FINDINGS: Hazy bilateral basilar pleural-parenchymal opacities are noted, worse on the right than the left. Vis ualized cardiac contours are grossly satisfactory. CONCLUSION: Hazy bilateral pleural-parenchymal opacities, likely reflecting alveolar disease and layering effusio n. Slight improvement from prior. Electronically signed by: Rivera Baker MD 05/25/2018 10:51 AM EDT
--- NOTE | 2018-05-25 11:34 | P.PNID ---
Subjective Remarks: This is a 72-year-old white female who was admitted to the hospital on 2017 with hypoglycemia. The patient reportedly had a glucose of 15 on arrival of EMS to attend to her. She reportedly was moaning pain as well when she was admitted through the Emergency department. The patient reportedly was on hospice care at home and that was revoked by her family members. She has been attended to by various specialties during this hospitalization. This includes endocrinology,pulmonary, nephrology, cardiology , and also critical care. The patient more recently has been very lethargic. Urine culture was performed on 05/10/2018 and came back with Enterococcus faecium VRE. The patient received ceftriaxone from 04/18-05/04. She was put on linezolid on 05/16/2018. Repeat urine culture was obtained and now has growth of Pseudomonas aeruginosa. Her white count today is 12.8. Previous to that, the white count was normal between 05/05 and today. The last temperature elevation was 100.3 degrees on 05/16/2018. She is currently afebrile. The patient does not open eyes or awaken to me. She is somnolent and does not make any attempt to respond. Chest x-ray on 05/16/2018 showed cardiomegaly with bibasilar airspace disease and probable pleural effusions. The patient has a Frias catheter in place, which has cloudy sediment. Notes reviewed Afebrile Very awake today and conversing UC with PSAE And E faecium, not VRE Repeat UC still not done Creatinine better WBC normal Frequent loose stool, C diff negative Frias has been removed Antibiotics: Cefepime Zyvox - finished 05/23 Lines: PIV - No evidence of infection Past Medical History: Reviewed - Hypothyroidism, hypertension, gastroesophageal reflux disease, depression, arthritis, atrial fibrillation, cataract surgery, knee surgery, , and endometrial hyperplasia. Allergies/Adverse Reactions: Allergies aspirin Allergy (Severe, Verified 04/17/18 23:08) wheezing, runny nose, watery eyes Shellfish Allergy (Unknown, Uncoded 04/17/18 23:04) Objective Vital Signs 05/24/18 12:00 05/24/18 14:39 05/24/18 16:00 Temperature 98.0 F 98.1 F Pulse Rate 55 L 60 Respiratory Rate 18 18 Blood Pressure 98/55 L 97/56 L Pulse Oximetry 98 95 97 05/24/18 20:00 05/24/18 23:45 05/25/18 00:00 Temperature 98.2 F 98.5 F Pulse Rate 98 H 96 H 92 H Respiratory Rate 20 20 Blood Pressure 103/57 L 118/54 L Pulse Oximetry 98 97 05/25/18 03:40 05/25/18 04:00 05/25/18 08:00 Temperature 98.5 F 97.4 F L Pulse Rate 102 H 96 H 101 H Respiratory Rate 18 20 Blood Pressure 130/62 96/46 L Pulse Oximetry 97 98 Intake & Output 05/24/18 05/25/18 05/25/18 18:59 06:59 18:59 Intake Total 580 / 580 0 / 0 100 / 100 Output Total 0 / 0 Balance 580 / 580 0 / 0 100 / 100 Weight 155 kg Intake: IV 100 / 100 100 / 100 Maxipime Inj 1,000 MG In NS Inj 100 / 100 100 / 100 100 ML @ 200 mls/hr IV.SIG Q12H IAN Rx#:[id number] Oral 480 / 480 0 / 0 Output: Urine 0 / 0 Other: # Voids 1 Date of Last Bowel Movement 05/24/18 05/25/18 # Bowel Movements 1 Lab - Hematology Results 05/24/18 15:00 WBC 10.6 RBC 3.46 L Hgb 10.9 L Hct 32.0 L MCV 92.3 MCH 31.5 MCHC 34.1 RDW 17.8 H Plt Count 318 MPV 7.4 Prelim Diff (Auto) Slide review pending Neut % (Auto) 62.9 Lymph % (Auto) 23.2 [place] % (Auto) 11.3 H Eos % (Auto) 1.8 Baso % (Auto) 0.8 Neut # (Auto) 6.7 Lymph # (Auto) 2.5 [place] # (Auto) 1.2 H Eos # (Auto) 0.2 Baso # (Auto) 0.1 WBC Differential Manual diff final Seg Neuts % (Manual) 78 H Lymphocytes % (Manual) 10 Monocytes % (Manual) 7 Eosinophils % (Manual) 5 H Abs Neuts (Manual) 8.3 H Differential Comment . Platelet Estimate Normal Platelet Morphology Normal Spherocytes 1+ H Stomatocytes 1+ H Lab - Chemistry Results 05/23/18 05/23/18 05/23/18 13:02 17:38 20:15 Sodium Potassium Chloride Carbon Dioxide Anion Gap BUN Creatinine Estimated GFR POC Glucose 124 H 117 H 116 H Random Glucose Calcium TSH Free T4 05/24/18 05/24/18 05/24/18 08:06 12:54 15:00 Sodium 136 Potassium 2.7 L* Chloride 92 L Carbon Dioxide 32.3 H Anion Gap 12 BUN 24 H Creatinine 1.44 H Estimated GFR 36 L POC Glucose 158 H 136 H Random Glucose 104 Calcium 7.5 L D TSH Free T4 05/24/18 05/24/18 05/24/18 17:02 20:10 20:26 Sodium Potassium Chloride Carbon Dioxide Anion Gap BUN Creatinine Estimated GFR POC Glucose 146 H 136 H Random Glucose Calcium TSH 19.300 H Free T4 1.90 H 05/25/18 08:17 Sodium Potassium Chloride Carbon Dioxide Anion Gap BUN Creatinine Estimated GFR POC Glucose 120 H Random Glucose Calcium TSH Free T4 Imaging: ITS Impressions Chest X-Ray 05/25/18 00:00 CONCLUSION: Hazy bilateral pleural-parenchymal opacities, likely reflecting alveolar disease and layering effusion. Slight improvement from prior. Physical Exam: Physical Examination GENERAL: awakens when stimulated, NAD HEENT: The head is atraumatic. Extraocular movements are grossly intact. Pupils reactive to light. Oropharyngeal mucosa is dry. No thrush. NECK: Supple, obese LUNGS: Decreased breath sounds throughout. HEART: Irregular rate and rhythm without murmurs, rubs or gallops. ABDOMEN: Obese, decreased bowel sounds. No tenderness appreciated. No palpable mass. EXTREMITIES: No clubbing. No clubbing, cyanosis or edema. SKIN: No rash. Several scabbed lesions including one on the anterior chest and one on the dorsum of the right hand. NEUROLOGIC: awake and responding PSYCHIATRIC: calm LINE: NO evidence of infection
[2018-05-25] MEDS: levoFLOXacin 750 MG Tablet PO SCH (13:00)
--- NOTE | 2018-05-25 13:29 | P.PN ---
Subjective Interval history: Mrs. Power was afebrile with borderline tachycardia overnight (~100 bpm). Patient more awake today but confused. She denies complaints. She would mumble answers to questions with short answers. Patient appears still oriented to person; overall improved mental status. I attempted to contact partner and son to discuss care and baseline mental status further; I was unable to reach family Physical Exam Vital signs: Vital Signs 05/24/18 14:39 05/24/18 16:00 05/24/18 20:00 Temperature 98.1 F 98.2 F Pulse Rate 60 98 H Respiratory Rate 18 20 Blood Pressure 97/56 L 103/57 L Pulse Oximetry 95 97 98 05/24/18 23:45 05/25/18 00:00 05/25/18 03:40 Temperature 98.5 F Pulse Rate 96 H 92 H 102 H Respiratory Rate 20 Blood Pressure 118/54 L Pulse Oximetry 97 05/25/18 04:00 05/25/18 08:00 05/25/18 12:00 Temperature 98.5 F 97.4 F L 97.8 F Pulse Rate 96 H 103 H 88 Respiratory Rate 18 20 24 Blood Pressure 130/62 96/46 L 117/57 L Pulse Oximetry 97 98 96 Intake & Output 05/24/18 05/25/18 05/25/18 18:59 06:59 18:59 Intake Total 580 / 580 0 / 0 100 / 100 Output Total 0 / 0 Balance 580 / 580 0 / 0 100 / 100 Weight 155 kg Intake: IV 100 / 100 100 / 100 Maxipime Inj 1,000 MG In NS Inj 100 / 100 100 / 100 100 ML @ 200 mls/hr IV.SIG Q12H IAN Rx#:[id number] Oral 480 / 480 0 / 0 Output: Urine 0 / 0 Other: # Voids 1 Date of Last Bowel Movement 05/24/18 05/25/18 # Bowel Movements 1 Narrative: GENERAL: NAD, obese EYES: EOM grossly I CARDIOVASCULAR: Regular rate and rhythm without murmurs. Normal perfusion. RESPIRATORY: Breath sounds equal bilaterally. Normal sat on NC O2 GASTROINTESTINAL: Abdomen soft, non-tender, nondistended. Obese. MUSCULOSKELETAL: Mild bilateral lower extremity edema; no calf asymmetry NEURO: Awake. Alert but confused. Patient more responsive than at prior exam, would answer questions but mumbling. No gross CN deficits - Urinary Catheter Management Indwelling Urethral Catheter Cath placed during this visit: no Results - Labs CBC & Chem 7: 05/25/18 07:28 05/25/18 15:39 Laboratory Results - last 24 hr 05/24/18 05/24/18 05/24/18 13:52 15:00 15:00 WBC 10.6 RBC 3.46 L Hgb 10.9 L Hct 32.0 L MCV 92.3 MCH 31.5 MCHC 34.1 RDW 17.8 H Plt Count 318 MPV 7.4 Prelim Diff (Auto) Slide review pending Neut % (Auto) 62.9 Lymph % (Auto) 23.2 [place] % (Auto) 11.3 H Eos % (Auto) 1.8 Baso % (Auto) 0.8 Neut # (Auto) 6.7 Lymph # (Auto) 2.5 [place] # (Auto) 1.2 H Eos # (Auto) 0.2 Baso # (Auto) 0.1 WBC Differential Manual diff final Seg Neuts % (Manual) 78 H Lymphocytes % (Manual) 10 Monocytes % (Manual) 7 Eosinophils % (Manual) 5 H Abs Neuts (Manual) 8.3 H Differential Comment . Platelet Estimate Normal Platelet Morphology Normal Spherocytes 1+ H Stomatocytes 1+ H Puncture Site Left radial Patient Temperature 98.6 O2 Saturation 93 ABG pH 7.50 H ABG pCO2 44 H ABG pO2 74 ABG HCO3 34 H ABG O2 Content 16.7 ABG Base Excess 9.8 H ABG Methemoglobin 0.9 Rowdy Test Present Hemoglobin 12.8 Carboxyhemoglobin 1.4 O2 Delivery Device Nasal cannula Liter Flow 3.00 Inspired O2 21 Critical Value No Sodium 136 Potassium 2.7 L* Chloride 92 L Carbon Dioxide 32.3 H Anion Gap 12 BUN 24 H Creatinine 1.44 H Estimated GFR 36 L POC Glucose Random Glucose 104 Calcium 7.5 L D TSH Free T4 05/24/18 05/24/18 05/24/18 17:02 20:10 20:26 WBC RBC Hgb Hct MCV MCH MCHC RDW Plt Count MPV Prelim Diff (Auto) Neut % (Auto) Lymph % (Auto) [place] % (Auto) Eos % (Auto) Baso % (Auto) Neut # (Auto) Lymph # (Auto) [place] # (Auto) Eos # (Auto) Baso # (Auto) WBC Differential Seg Neuts % (Manual) Lymphocytes % (Manual) Monocytes % (Manual) Eosinophils % (Manual) Abs Neuts (Manual) Differential Comment Platelet Estimate Platelet Morphology Spherocytes Stomatocytes Puncture Site Patient Temperature O2 Saturation ABG pH ABG pCO2 ABG pO2 ABG HCO3 ABG O2 Content ABG Base Excess ABG Methemoglobin Rowdy Test Hemoglobin Carboxyhemoglobin O2 Delivery Device Liter Flow Inspired O2 Critical Value Sodium Potassium Chloride Carbon Dioxide Anion Gap BUN Creatinine Estimated GFR POC Glucose 146 H 136 H Random Glucose Calcium TSH 19.300 H Free T4 1.90 H 05/25/18 05/25/18 05/25/18 08:17 09:50 13:20 WBC RBC Hgb Hct MCV MCH MCHC RDW Plt Count MPV Prelim Diff (Auto) Neut % (Auto) Lymph % (Auto) [place] % (Auto) Eos % (Auto) Baso % (Auto) Neut # (Auto) Lymph # (Auto) [place] # (Auto) Eos # (Auto) Baso # (Auto) WBC Differential Seg Neuts % (Manual) Lymphocytes % (Manual) Monocytes % (Manual) Eosinophils % (Manual) Abs Neuts (Manual) Differential Comment Platelet Estimate Platelet Morphology Spherocytes Stomatocytes Puncture Site Right radial Patient Temperature 98.6 O2 Saturation 90 ABG pH 7.47 H ABG pCO2 45 H ABG pO2 63 ABG HCO3 33 H ABG O2 Content 19.2 ABG Base Excess 8.6 H ABG Methemoglobin 1.1 Rowdy Test Present Hemoglobin 15.2 Carboxyhemoglobin 0.9 O2 Delivery Device Nasal cannula Liter Flow 2.50 Inspired O2 Critical Value No Sodium Potassium Chloride Carbon Dioxide Anion Gap BUN Creatinine Estimated GFR POC Glucose 120 H 106 Random Glucose Calcium TSH Free T4 - Imaging Impressions Chest X-Ray 05/25/18 00:00 CONCLUSION: Hazy bilateral pleural-parenchymal opacities, likely reflecting alveolar disease and layering effusion. Slight improvement from prior. Assessment and Plan - Assessment (1) Respiratory failure with hypoxia and hypercapnia Code(s): J96.91 - Respiratory failure, unspecified with hypoxia; J96.92 - Respiratory failure, unspecified with hypercapnia Status: Acute (2) BETTIE and COPD overlap syndrome Code(s): G47.33 - Obstructive sleep apnea (adult) (pediatric); J44.9 - Chronic obstructive pulmonary disease, unspecified Status: Acute (3) Hypothyroidism Code(s): E03.9 - Hypothyroidism, unspecified Status: Acute - Plan 72-year-old female admitted secondary to hypoglycemia with renal failure and respiratory failure Encephalopathy Impression: Unclear etiology. I attempted to establish baseline with family without success. Per EMR review, some hypercapnia. Head CT negative 05/14. Hypoglycemia and confusion on admission. No obvious recent electrolyte abnormalities; prior ammonia mildly increased (35 05/19). TSH elevated (50 recently) -repeat ABG - persistent mild hypercapnia, pH 7.47 -Receiving IV Levothyroxine per Endocrine -Neurology consulted -Overall improvement, sedating medications discontinued Acute hypercapnic hypoxemic respiratory failure was placed on BiPAP. Probably Pickwickian syndrome Pulmonary Infiltrate Respiratory status continues to improve Continue supplementation with oxygen and follow clinically Pulmonology consulted -BIPAP at night Acute renal failure Impression: Cr 1.22 today; seems to be near baseline. Continue monitoring renal function Avoid nephrotoxins Sodium electrolyte disturbance Patient has had problems with hypernatremia and hyponatremia Currently balance Monitor sodium levels UTI. Impression: Pseudomonas aeruginosa and E faecium -ID consulted -Continue Cefepime -Zyvox stopped 05/23 -monitor CBC, UA, C/S -Discussed with ID; will repeat Urine culture -Monitor mental status Poor po intake Dysphagia Impression: Patient has intermittently been eating 25% of meals but generally not eating Continue NG tube feeding If dysphagia improves can consider discontinuation of tube feeding Acute diastolic CHF exacerbation Stabilized -Will convert from IV Furosemide 40mg daily to oral Furosemide 40mg daily A. fib RVR Rate is now controlled Cardiology following Continue metoprolol and Cardizem Hypothyroidism. Impression: TSH 50 05/23; s/p Levothyroxine 500mcg IV. TSH ~20 today Endocrinology consulted -Patient improving; will give 200 mcg PO -Continue to repeat TSH/T4 Diabetes mellitus type 2 Follow blood sugars Insulin sliding scale Diabetic diet Suicidal intent Resolved. 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 Generalized pain Continue pain Management Anemia of chronic disease Stabilized for now Follow CBC Cutaneous candidiasis. Course of Diflucan completed; continue Nystatin DVT prophylaxis Continue Eliquis Discharge Planning: Pending improvement in thyroid function per Endocrinology. Need to clarify baseline mental status/whether other evaluation/intervention needed by talking to family. Discharge to SNF
[2018-05-25 16:33] LABS: Baso # (Auto) 0.1 th/mm3 (0.0-0.2); Baso % (Auto) 0.6 % (0.0-2.0); Eos # (Auto) 0.2 th/mm3 (0.0-0.4); Hematocrit 29.8 % (35.0-46.0); Lymph % (Auto) 21.1 % (9.0-44.0); Mean Corpuscular HGB Conc 33.5 % (32.0-36.0); Mean Corpuscular Hemoglobin 30.6 pg (27.0-34.0); Mean Corpuscular Volume 91.2 fL (80.0-100.0); Mean Platelet Volume 7.2 fL (7.0-11.0); Mono # (Auto) 0.9 th/mm3 (0.0-0.9); Mono % (Auto) 9.3 % (0.0-8.0); Neut # (Auto) 6.4 th/mm3 (1.8-7.7); Platelet Count 293 th/mm3 (150-450); Red Blood Count 3.26 mil/mm3 (4.00-5.30); Red Cell Distribution Width 17.5 % (11.6-17.2); White Blood Count 9.5 th/mm3 (4.0-11.0)
[2018-05-25 17:11] LABS: Calcium 7.2 mg/dL (8.5-10.1); Carbon Dioxide 31.9 meq/L (21.0-32.0); Magnesium 1.2 mg/dL (1.5-2.5); Potassium 3.2 meq/L (3.5-5.1)
[2018-05-25 17:15] LABS: Free T4 (Free Thyroxine) 1.7 ng/dL (0.76-1.46); Thyroid Stimulating Hormone 15.7 uIU/mL (0.358-3.740)
[2018-05-25 17:33] LABS: Total Protein 5.3 g/dL (6.4-8.2)
--- NOTE | 2018-05-25 19:47 | P.PNEN ---
Subjective Interval history: Patient is more easily aroused today. On on questioning she is able to open her eyes but is not answering the questions. She is moving more. She is not restrained. Overnight her TSH Has decreased and has continues to decrease. Her TSH most recently was down to 15 and her Free T4 was stilghtly increased at 1.7. Overnight she was slightly tachycardic. Physical Exam Vital signs: The patient is laying in bed. She is not restrained anymore. She is able to open her eyes spontaneously but is not answering my questions. She is still having pursed lip exhalations. Vital Signs 05/24/18 20:00 05/24/18 23:45 05/25/18 00:00 Temperature 98.2 F 98.5 F Pulse Rate 98 H 96 H 92 H Respiratory Rate 20 20 Blood Pressure 103/57 L 118/54 L Pulse Oximetry 98 97 05/25/18 03:40 05/25/18 04:00 05/25/18 08:00 Temperature 98.5 F 97.4 F L Pulse Rate 102 H 96 H 103 H Respiratory Rate 18 20 Blood Pressure 130/62 96/46 L Pulse Oximetry 97 98 05/25/18 12:00 05/25/18 16:00 05/25/18 17:28 Temperature 97.8 F 97.6 F Pulse Rate 88 94 H Respiratory Rate 24 22 Blood Pressure 117/57 L 109/51 L Pulse Oximetry 96 96 96 05/25/18 17:30 Temperature Pulse Rate Respiratory Rate Blood Pressure Pulse Oximetry 96 Intake & Output 05/25/18 05/25/18 05/26/18 06:59 18:59 06:59 Intake Total 0 / 0 460 / 460 Balance 0 / 0 460 / 460 Weight 155 kg Intake: IV 100 / 100 Maxipime Inj 1,000 MG In NS Inj 100 / 100 100 ML @ 200 mls/hr IV.SIG Q12H IAN Rx#:[id number] Oral 0 / 0 360 / 360 Other: # Voids 1 3 Date of Last Bowel Movement 05/25/18 # Bowel Movements 1 1 - Urinary Catheter Management Indwelling Urethral Catheter Cath placed during this visit: no Assessment and Plan - Assessment (1) Hypothyroidism Code(s): E03.9 - Hypothyroidism, unspecified Status: Acute - Plan Severe Hypothyroidism Labs reviewed. Pt is getting better both clinically as well as per her labs. Currently will change her over to 200 mcg PO QAM at 6 AM from tomorrow morning. To be given with full glass of water and 1 hour prior to other PO intake. Will continue to repeat morning TSH and Free T4 as ordered before. Orders written. Thank you for allowing me to participate in the medical management of this interesting lady. Will follow.
[2018-05-25] MEDS: Montelukast 10 MG Tablet PO SCH (21:09)
[2018-05-26] MEDS: dilTIAZem 60 MG Tablet PO SCH ×5 (01:30→18:15)
[2018-05-26 06:10] LABS: Amorphous Sediment,Urine Rare /hpf; Bacteria,Urine Occasional /hpf; Bilirubin,Urine Negative (Negative); Clarity,Urine Hazy (Clear); Color,Urine Yellow (Yellw/Straw); Glucose,Urine (UA) Negative (Negative); Leukocyte Esterase,Urine Negative (Negative); Mucus,Urine Few /lpf (Occasional); Nitrite,Urine Negative (Negative); Squamous Epithelial Cell,Urine 2 /hpf (0-5)
[2018-05-26] MEDS: Potassium Phos/Sodium Phos 250 MG Tablet NG/OG SCH ×2 (06:53→13:00)
[2018-05-26 07:30] LABS: Baso # (Auto) 0.1 th/mm3 (0.0-0.2); Baso % (Auto) 0.9 % (0.0-2.0); Eos # (Auto) 0.2 th/mm3 (0.0-0.4); Hematocrit 27.9 % (35.0-46.0); Hemoglobin 9.6 gm/dL (11.6-15.3); Lymph % (Auto) 21.1 % (9.0-44.0); Mean Corpuscular HGB Conc 34.4 % (32.0-36.0); Mean Corpuscular Hemoglobin 31.3 pg (27.0-34.0); Mean Corpuscular Volume 90.9 fL (80.0-100.0); Mono # (Auto) 1.1 th/mm3 (0.0-0.9); Mono % (Auto) 11.8 % (0.0-8.0); Neut % (Auto) 64.2 % (16.0-70.0); Platelet Count 248 th/mm3 (150-450); Red Blood Count 3.07 mil/mm3 (4.00-5.30); Red Cell Distribution Width 17.9 % (11.6-17.2); White Blood Count 9.4 th/mm3 (4.0-11.0)
[2018-05-26 07:59] LABS: Calcium 7.4 mg/dL (8.5-10.1); Carbon Dioxide 29.6 meq/L (21.0-32.0); Free T4 (Free Thyroxine) 1.59 ng/dL (0.76-1.46); Thyroid Stimulating Hormone 12.1 uIU/mL (0.358-3.740)
[2018-05-26 08:17] LABS: Total Protein 5.2 g/dL (6.4-8.2)
[2018-05-26 08:24] LABS: Potassium 2.8 meq/L (3.5-5.1)
[2018-05-26] MEDS: Insulin NovoLOG Aspart Correctional Sugar Inj SQ SCH ×4 (09:49→23:23)
[2018-05-26] MEDS: Metoprolol Tartrate 50 MG Tablet PO SCH ×2 (09:50→23:22)
[2018-05-26] MEDS: Furosemide 20 MG Tablet PO SCH (09:50)
[2018-05-26] MEDS: Nystatin 100,000 UNITS/GM Powder 15 GM Bottle TOPICAL SCH ×2 (09:50→23:26)
[2018-05-26] MEDS: Heparin - SQ 10,000 UNITS/ML Vial SQ SCH (09:50)
--- NOTE | 2018-05-26 11:20 | P.PN ---
Subjective Interval history: telemetry- in a fib- 90s awake and alert, ff simple commands, stated her name Physical Exam Vital signs: Vital Signs 05/25/18 12:00 05/25/18 16:00 05/25/18 17:28 Temperature 97.8 F 97.6 F Pulse Rate 88 86 Respiratory Rate 24 22 Blood Pressure 117/57 L 109/51 L Pulse Oximetry 96 96 96 05/25/18 17:30 05/25/18 20:00 05/25/18 21:27 Temperature 98.4 F Pulse Rate 90 94 H Respiratory Rate 18 22 Blood Pressure 124/70 Pulse Oximetry 96 96 05/25/18 21:28 05/26/18 00:00 05/26/18 00:29 Temperature 98.0 F 97.8 F Pulse Rate 107 H 92 H Respiratory Rate 22 Blood Pressure 130/70 91/68 L Pulse Oximetry 96 95 05/26/18 04:00 Temperature 98.2 F Pulse Rate 97 H Respiratory Rate Blood Pressure 97/65 L Pulse Oximetry Intake & Output 05/25/18 05/26/18 05/26/18 18:59 06:59 18:59 Intake Total 460 / 460 Balance 460 / 460 Weight 4304 kg Intake: IV 100 / 100 Maxipime Inj 1,000 MG In NS Inj 100 / 100 100 ML @ 200 mls/hr IV.SIG Q12H IAN Rx#:[id number] Oral 360 / 360 Other: # Voids 3 Date of Last Bowel Movement 05/26/18 # Bowel Movements 1 - Constitutional no acute distress - Routine HEENT Exam Head: Present: normocephalic ENT: Present: mucous membranes moist - Routine Neck Exam Present: supple - Routine Respiratory Exam Present: CTA bilaterally - Routine Cardiovascular Exam Present: irregular rhythm - Routine Abdominal Exam Present: soft, normoactive bowel sounds - Routine Neurological Exam Present: alert - Detailed Neurological Exam: Coma Scale Eye Opening: Spontaneous Motor Response: Obey commands (ff some commands) - Routine Psychiatric Exam Comments: blunt affect - Urinary Catheter Management Indwelling Urethral Catheter Cath placed during this visit: no Reason for continuing: Not indwelling catheter Results - Labs CBC & Chem 7: 05/26/18 06:34 05/26/18 06:34 Laboratory Results - last 24 hr 05/25/18 05/25/18 05/25/18 07:28 13:20 15:39 WBC 9.5 RBC 3.26 L Hgb 10.0 L Hct 29.8 L MCV 91.2 MCH 30.6 MCHC 33.5 RDW 17.5 H Plt Count 293 MPV 7.2 Neut % (Auto) 67.0 Lymph % (Auto) 21.1 [place] % (Auto) 9.3 H Eos % (Auto) 2.0 Baso % (Auto) 0.6 Neut # (Auto) 6.4 Lymph # (Auto) 2.0 [place] # (Auto) 0.9 Eos # (Auto) 0.2 Baso # (Auto) 0.1 WBC Differential . Differential Comment Auto diff final Sodium 139 Potassium 3.2 L Chloride 96 L Carbon Dioxide 31.9 Anion Gap 11 BUN 24 H Creatinine 1.38 H Estimated GFR 38 L POC Glucose 106 Random Glucose 113 H Calcium 7.2 L* Prot Corrected Calcium 8.2 L Magnesium 1.2 L Total Protein 5.3 L TSH 15.700 H Free T4 1.70 H Urine Color Urine Clarity Urine pH Ur Specific [place] Urine Protein Urine Glucose (UA) Urine Ketones Urine Occult Blood Urine Nitrate Urine Bilirubin Urine Urobilinogen Ur Leukocyte Esterase Urine RBC Urine WBC Ur Squamous Epith Cells Amorphous Sediment Urine Bacteria Urine Mucus Urine Yeast Micro UA Comment Urine Culture Comments 05/25/18 05/25/18 05/26/18 17:06 20:39 05:45 WBC RBC Hgb Hct MCV MCH MCHC RDW Plt Count MPV Neut % (Auto) Lymph % (Auto) [place] % (Auto) Eos % (Auto) Baso % (Auto) Neut # (Auto) Lymph # (Auto) [place] # (Auto) Eos # (Auto) Baso # (Auto) WBC Differential Differential Comment Sodium Potassium Chloride Carbon Dioxide Anion Gap BUN Creatinine Estimated GFR POC Glucose 124 H 100 Random Glucose Calcium Prot Corrected Calcium Magnesium Total Protein TSH Free T4 Urine Color Yellow Urine Clarity Hazy H Urine pH 5.0 Ur Specific [place] 1.020 Urine Protein 30 H Urine Glucose (UA) Negative Urine Ketones Trace H Urine Occult Blood Small H Urine Nitrate Negative Urine Bilirubin Negative Urine Urobilinogen Less than 2 Ur Leukocyte Esterase Negative Urine RBC Less than 1 Urine WBC 4 Ur Squamous Epith Cells 2 Amorphous Sediment Rare H Urine Bacteria Occasional H Urine Mucus Few H Urine Yeast Few H Micro UA Comment Cath-culture ind Urine Culture Comments Cath-cult indicated 05/26/18 05/26/18 05/26/18 06:34 06:34 09:01 WBC 9.4 RBC 3.07 L Hgb 9.6 L Hct 27.9 L MCV 90.9 MCH 31.3 MCHC 34.4 RDW 17.9 H Plt Count 248 MPV 7.0 Neut % (Auto) 64.2 Lymph % (Auto) 21.1 [place] % (Auto) 11.8 H Eos % (Auto) 2.0 Baso % (Auto) 0.9 Neut # (Auto) 6.0 Lymph # (Auto) 2.0 [place] # (Auto) 1.1 H Eos # (Auto) 0.2 Baso # (Auto) 0.1 WBC Differential . Differential Comment Auto diff final Sodium 138 Potassium 2.8 L* Chloride 95 L Carbon Dioxide 29.6 Anion Gap 13 BUN 26 H Creatinine 1.50 H Estimated GFR 34 L POC Glucose 135 H Random Glucose 100 Calcium 7.4 L* Prot Corrected Calcium 8.5 Magnesium Total Protein 5.2 L TSH 12.100 H Free T4 1.59 H Urine Color Urine Clarity Urine pH Ur Specific [place] Urine Protein Urine Glucose (UA) Urine Ketones Urine Occult Blood Urine Nitrate Urine Bilirubin Urine Urobilinogen Ur Leukocyte Esterase Urine RBC Urine WBC Ur Squamous Epith Cells Amorphous Sediment Urine Bacteria Urine Mucus Urine Yeast Micro UA Comment Urine Culture Comments Assessment and Plan - Assessment (1) Respiratory failure with hypoxia and hypercapnia Code(s): J96.91 - Respiratory failure, unspecified with hypoxia; J96.92 - Respiratory failure, unspecified with hypercapnia Status: Acute (2) BETTIE and COPD overlap syndrome Code(s): G47.33 - Obstructive sleep apnea (adult) (pediatric); J44.9 - Chronic obstructive pulmonary disease, unspecified Status: Acute (3) Hypothyroidism Code(s): E03.9 - Hypothyroidism, unspecified Status: Acute - Plan 72 years old female (1) Respiratory failure with hypoxia and hypercapnia Code(s): J96.91 - Respiratory failure, unspecified with hypoxia; J96.92 - Respiratory failure, unspecified with hypercapnia Status: Acute (2) BETTIE and COPD overlap syndrome Code(s): G47.33 - Obstructive sleep apnea (adult) (pediatric); J44.9 - Chronic obstructive pulmonary disease, unspecified Status: Acute (3) Hypothyroidism Code(s): E03.9 - Hypothyroidism, unspecified Status: Acute - Plan 72-year-old female admitted secondary to hypoglycemia with renal failure and respiratory failure Encephalopathy Impression: Unclear etiology. . Per EMR review, some hypercapnia. Head CT negative 05/14. Hypoglycemia and confusion on admission. No obvious recent electrolyte abnormalities; prior ammonia mildly increased (35 05/19). TSH elevated (50 recently) -repeat ABG - persistent mild hypercapnia, pH 7.47 -Receiving IV Levothyroxine per Endocrine -Neurology ff -Overall improvement, sedating medications discontinued Acute hypercapnic hypoxemic respiratory failure was placed on BiPAP. Probably Pickwickian syndrome Pulmonary Infiltrate Respiratory status continues to improve Continue supplementation with oxygen and follow clinically Pulmonology ff -BIPAP at night Acute renal failure Impression: Cr 1.5 Continue monitoring renal function Avoid nephrotoxins Lasix switched to 20 mg po today Sodium electrolyte disturbance- improved Patient has had problems with hypernatremia and hyponatremia Currently balance Monitor sodium levels Hypokalemia - replace with IV KCL - ff BMP - Lasix 20 mg daily UTI. Impression: Pseudomonas aeruginosa and E faecium -ID consulted -Continue Cefepime -Zyvox stopped 05/23 -monitor CBC, UA, C/S -Discussed with ID 05/25 - ; will repeat Urine culture -Monitor mental status Poor po intake Dysphagia I- d/w staff nurse - poor po - ? PEG candidate Acute diastolic CHF exacerbation Stabilized Lasix 20 mg daily A. fib RVR Rate is now controlled Cardiology following Continue metoprolol and Cardizem Hypothyroidism. Impression: TSH 50 05/23; s/p Levothyroxine 500mcg IV. TSH ~20 today Endocrinology consulted -Patient improving; will give 200 mcg PO -Continue to repeat TSH/T4 Diabetes mellitus type 2 Follow blood sugars Insulin sliding scale Diabetic diet Suicidal intent Resolved. 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 Generalized pain Continue pain Management Anemia of chronic disease Stabilized for now Follow CBC Cutaneous candidiasis. Course of Diflucan completed; continue Nystatin DVT prophylaxis Continue Eliquis Discharge Planning: Pending improvement in thyroid function per Endocrinology. Need to clarify baseline mental status/whether other evaluation/intervention needed by talking to family. Discharge to SNF
[2018-05-26] MEDS: Potassium Chlor 10 mEq Premix 10 MEQ/100 ML PIGGYBACK IV.SIG SCH ×3 (13:00→18:15)
[2018-05-26] MEDS: Mag Sulf 1 gm/100 ml Premix 100 ML IV.SIG SCH (23:11)
[2018-05-26] MEDS: Montelukast 10 MG Tablet PO SCH (23:21)
[2018-05-27] MEDS ORDERED: Mag Sulf 1 gm/100 ml Premix 100 ML IV.SIG SCH (01:00)
[2018-05-27] MEDS: Mag Sulf 1 gm/100 ml Premix 100 ML IV.SIG SCH (01:20)
[2018-05-27] MEDS: dilTIAZem 60 MG Tablet PO SCH ×4 (04:10→18:34)
[2018-05-27] MEDS: Insulin NovoLOG Aspart Correctional Sugar Inj SQ SCH ×4 (08:47→21:13)
[2018-05-27] MEDS: Furosemide 20 MG Tablet PO SCH (10:03)
[2018-05-27] MEDS: Metoprolol Tartrate 50 MG Tablet PO SCH ×2 (10:03→21:13)
[2018-05-27] MEDS: Nystatin 100,000 UNITS/GM Powder 15 GM Bottle TOPICAL SCH ×2 (10:04→21:13)
[2018-05-27] MEDS: levoFLOXacin 750 MG Tablet PO SCH (12:00)
--- NOTE | 2018-05-27 12:00 | P.PN ---
Subjective Interval history: seen with staff nurse awake, stted her name, then started crying poor po intake per staff not taking meds telemetry a fib Physical Exam Vital signs: Vital Signs 05/26/18 12:00 05/26/18 16:00 05/26/18 20:00 Temperature 97.7 F 97.7 F 98.7 F Pulse Rate 90 90 102 H Respiratory Rate 22 22 17 Blood Pressure 108/57 L 96/54 L 109/58 L Pulse Oximetry 94 L 94 L 17 L 05/27/18 00:00 05/27/18 08:00 Temperature 97.3 F L 98.2 F Pulse Rate 106 H 88 Respiratory Rate 22 22 Blood Pressure 101/57 L 110/64 Pulse Oximetry 94 L 94 L Intake & Output 05/26/18 05/27/18 05/27/18 18:59 06:59 18:59 Intake Total 680 / 680 190 / 190 Output Total 1000 / 1000 Balance -320 / -320 190 / 190 Weight 156.1 kg Intake: IV 300 / 300 100 / 100 Magnesium Sulfate 1 gm/D5W 100 100 / 100 ml Premix 100 ML @ 100 mls/hr IV.SIG Q1H IAN Rx#:[id number] KCl 10 mEq Premix Inj 10 meq In 300 / 300 100 ml @ 100 mls/hr IV.SIG Q1H IAN Rx#:[id number] Oral 380 / 380 90 / 90 Output: Urine 1000 / 1000 Other: Date of Last Bowel Movement 05/26/18 05/27/18 # Bowel Movements 0 Narrative: patient awake, tearfula dn crying anciteric dry oral mucosa lungs- decreased breath sounds irregularly irregular rhythm abdomen-soft extremities no calf tenderness, good peripheral pulses, no edema - Urinary Catheter Management Indwelling Urethral Catheter Cath placed during this visit: no Reason for continuing: Not indwelling catheter Results - Labs CBC & Chem 7: 05/26/18 06:34 05/26/18 06:34 Laboratory Results - last 24 hr 05/26/18 05/26/18 05/26/18 06:34 12:44 16:46 POC Glucose 140 H 138 H Magnesium 1.2 L 05/26/18 05/27/18 05/27/18 20:21 08:06 11:39 POC Glucose 102 131 H 114 H Magnesium Microbiology 05/26/18 05:45 Catheterized Urine Urine Culture - Preliminary Immature growth - reincubate Assessment and Plan - Assessment (1) Respiratory failure with hypoxia and hypercapnia Code(s): J96.91 - Respiratory failure, unspecified with hypoxia; J96.92 - Respiratory failure, unspecified with hypercapnia Status: Acute (2) BETTIE and COPD overlap syndrome Code(s): G47.33 - Obstructive sleep apnea (adult) (pediatric); J44.9 - Chronic obstructive pulmonary disease, unspecified Status: Acute (3) Hypothyroidism Code(s): E03.9 - Hypothyroidism, unspecified Status: Acute - Plan 72 years old female (1) Respiratory failure with hypoxia and hypercapnia Code(s): J96.91 - Respiratory failure, unspecified with hypoxia; J96.92 - Respiratory failure, unspecified with hypercapnia Status: Acute (2) BETTIE and COPD overlap syndrome Code(s): G47.33 - Obstructive sleep apnea (adult) (pediatric); J44.9 - Chronic obstructive pulmonary disease, unspecified Status: Acute (3) Hypothyroidism Code(s): E03.9 - Hypothyroidism, unspecified Status: Acute - Plan 72-year-old female admitted secondary to hypoglycemia with renal failure and respiratory failure Encephalopathy Impression: Unclear etiology. . Per EMR review, some hypercapnia. Head CT negative 05/14. Hypoglycemia and confusion on admission. No obvious recent electrolyte abnormalities; prior ammonia mildly increased (35 05/19). TSH elevated (50 recently) -repeat ABG - persistent mild hypercapnia, pH 7.47 -Receiving IV Levothyroxine per Endocrine -Neurology ff -Overall improvement, sedating medications discontinued Acute hypercapnic hypoxemic respiratory failure was placed on BiPAP. Probably Pickwickian syndrome Pulmonary Infiltrate Respiratory status continues to improve Continue supplementation with oxygen and follow clinically Pulmonology ff -BIPAP at night Acute renal failure Impression: Cr 1.5 Continue monitoring renal function Avoid nephrotoxins Lasix switched to 20 mg po today Sodium electrolyte disturbance- improved Patient has had problems with hypernatremia and hyponatremia Currently balance Monitor sodium levels Hypokalemia - replace with IV KCL - ff BMP - Lasix 20 mg daily UTI. Impression: Pseudomonas aeruginosa and E faecium -ID consulted -Continue Cefepime -Zyvox stopped 05/23 -monitor CBC, UA, C/S -Discussed with ID 05/25 - ; will repeat Urine culture- no growth -Monitor mental status Poor po intake Dysphagia I- d/w staff nurse - poor po - ? PEG candidate- get GI consult Acute diastolic CHF exacerbation Stabilized Lasix 20 mg daily A. fib RVR - rate low 100s- Cardiology following Continue metoprolol and Cardizem Hypothyroidism. Impression: TSH 50 7/; s/p Levothyroxine 500mcg IV. TSH ~20 today Endocrinology consulted -Patient improving; will give 200 mcg PO -Continue to repeat TSH/T4 Diabetes mellitus type 2 Follow blood sugars Insulin sliding scale Diabetic diet Depression- patient crying and tearful Suicidal intent Resolved. 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 reconsult psychiatry in am Generalized pain Continue pain Management Anemia of chronic disease Stabilized for now Follow CBC Cutaneous candidiasis. Course of Diflucan completed; continue Nystatin DVT prophylaxis Continue Eliquis Discharge Planning: Pending improvement in thyroid function per Endocrinology. Need to clarify baseline mental status/whether other evaluation/intervention needed by talking to family. Discharge to SNF will need to discuss with family- consider Palliative care in am to determine goals of care consider /PEG
--- NOTE | 2018-05-27 14:38 | P.CONGI ---
History of Present Illness Consult date: 05/27/18 Consult reason: PEG tube placement Chief complaint: Hypoglycemia, Hypocalcemia, Hypercarbia On Bipap, History of Present Illness: This is a unfortunate morbidly obese female who has been in the hospital here currently on day 40 for respiratory failure renal failure anemia and end-stage COPD. Patient is currently being managed on the floor with a nasal cannula in no obvious shortness of breath. Patient has altered mental status and is unaware of where she is, time or situation. She is randomly calling out for her daughter and appears to have moderate agitation at times. Currently patient hollers out when attempting to examine her so hands on tactile stimulation is currently limited. According to the staff patient has had previous PEG tube but unknown history tube placement timing or when the tube was taken out or removed. According to the history patient has had problems in the past with chronic dysphasia which was the probable reason for the PEG tube. Any information is currently being gathered from the record. Currently the patient is noted to be on Eliquis which was held today. Current hemoglobin is 9.6. Gastroenterology has been consulted for PEG tube placement. Thank you for this consult <Brielle Soto - Last Filed: 05/27/18 14:50> Review of Systems unobtainable due to mental condition <Brielle Soto - Last Filed: 05/27/18 14:50> Medications and Allergies Active Medications: Active Medications Acetaminophen (Tylenol) 650 mg PO Q4H PRN PRN Reason: SEE LABEL COMMENTS Albuterol (Duoneb Neb (Prn)) 1 ampul NEB Q2HR NEB PRN PRN Reason: SHORT OF BREATH Last Admin: 05/25/18 21:23 Dose: 1 ampul Apixaban (Eliquis) 5 mg PO BID [facility] Last Admin: 05/27/18 10:03 Dose: Not Given Bisacodyl (Dulcolax Supp) 10 mg RECTAL Q24H PRN PRN Reason: SEVERE CONSITIPATION Bupropion HCl (Wellbutrin Sr) 150 mg PO DAILY IAN Buspirone HCl (Buspar) 5 mg PO BID [facility] Dextrose (D50w Vial) 50 ml IV.PUSH UNSCH PRN PRN Reason: PER HYPOGLYCEMIA PROTOCOL Diltiazem HCl (Cardizem) 60 mg PO Q6H [facility] Last Admin: 05/27/18 11:58 Dose: 60 mg Diphenhydramine HCl (Benadryl) 25 mg PO Q4H PRN PRN Reason: SEE LABEL COMMENTS Furosemide (Lasix) 20 mg PO DAILY [facility] Last Admin: 05/27/18 10:03 Dose: Not Given Glucagon (Glucagon Inj) 1 mg OTHER PRN PRN PRN Reason: for Hypoglycemia Protocol Sodium Phosphate 30 mmol/ (Sodium Chloride) 260 mls @ 43.333 mls/hr IV.SIG UNSCH PRN PRN Reason: SEE LABEL COMMENTS Insulin Aspart (Novolog Insulin Suppl Scale Inj) [address] [facility]; Protocol Last Admin: 05/27/18 12:00 Dose: Not Given Labetalol HCl (Trandate Inj) 10 mg IV.PUSH Q4H PRN PRN Reason: HR > 110 , SBP > 110 Levofloxacin (Levaquin) 750 mg PO Q48H [facility] Stop: 05/30/18 12:59 Last Admin: 05/27/18 12:00 Dose: 750 mg Levothyroxine Sodium (Synthroid) 200 mcg PO DAILY@0600 [facility] Last Admin: 05/27/18 06:47 Dose: Not Given Metoprolol Tartrate (Lopressor) 50 mg PO BID [facility] Last Admin: 05/27/18 10:03 Dose: Not Given Montelukast Sodium (Singulair) 10 mg PO [facility] Last Admin: 05/26/18 23:21 Dose: 10 mg Naloxone HCl (Narcan Inj) 0.4 mg IV.PUSH UNSCH PRN PRN Reason: SEE DOSE INSTRUCTIONS Nystatin (Mycostatin Powder) 1 applicatio TOPICAL Q12H [facility] Last Admin: 05/27/18 10:04 Dose: 1 applicatio Pantoprazole Sodium (Protonix) 40 mg PO DAILY [facility] Last Admin: 05/27/18 10:04 Dose: Not Given Potassium Chloride (Kcl 40 Meq/30 Ml Liq) 40 meq PO UNSCH PRN PRN Reason: NEEDED Quetiapine Fumarate (Seroquel) 50 mg PO [facility] Vitamin D (Vitamin D3) 2,000 unit PO DAILY [facility] Last Admin: 05/27/18 10:04 Dose: Not Given <Brielle Soto - Last Filed: 05/27/18 14:50> Active Medications: Active Medications Acetaminophen (Tylenol) 650 mg PO Q4H PRN PRN Reason: SEE LABEL COMMENTS Albuterol (Duoneb Neb (Prn)) 1 ampul NEB Q2HR NEB PRN PRN Reason: SHORT OF BREATH Last Admin: 05/25/18 21:23 Dose: 1 ampul Bisacodyl (Dulcolax Supp) 10 mg RECTAL Q24H PRN PRN Reason: SEVERE CONSITIPATION Bupropion HCl (Wellbutrin Sr) 150 mg PO DAILY IAN Buspirone HCl (Buspar) 5 mg PO BID [facility] Dextrose (D50w Vial) 50 ml IV.PUSH UNSCH PRN PRN Reason: PER HYPOGLYCEMIA PROTOCOL Diltiazem HCl (Cardizem) 60 mg PO Q6H [facility] Last Admin: 05/27/18 11:58 Dose: 60 mg Diphenhydramine HCl (Benadryl) 25 mg PO Q4H PRN PRN Reason: SEE LABEL COMMENTS Furosemide (Lasix) 20 mg PO DAILY [facility] Last Admin: 05/27/18 10:03 Dose: Not Given Glucagon (Glucagon Inj) 1 mg OTHER PRN PRN PRN Reason: for Hypoglycemia Protocol Sodium Phosphate 30 mmol/ (Sodium Chloride) 260 mls @ 43.333 mls/hr IV.SIG UNSCH PRN PRN Reason: SEE LABEL COMMENTS Cefazolin Sodium 1,000 mg/ (Sodium Chloride) 100 mls @ 100 mls/hr IV.SIG OILER BANDER PRN PRN Reason: ON-CALL Insulin Aspart (Novolog Insulin Suppl Scale Inj) 0 unit SQ ACHS [facility]; Protocol Last Admin: 05/27/18 12:00 Dose: Not Given Labetalol HCl (Trandate Inj) 10 mg IV.PUSH Q4H PRN PRN Reason: HR > 110 , SBP > 110 Levofloxacin (Levaquin) 750 mg PO Q48H [facility] Stop: 05/30/18 12:59 Last Admin: 05/27/18 12:00 Dose: 750 mg Levothyroxine Sodium (Synthroid) 200 mcg PO DAILY@0600 [facility] Last Admin: 05/27/18 06:47 Dose: Not Given Metoprolol Tartrate (Lopressor) 50 mg PO BID [facility] Last Admin: 05/27/18 10:03 Dose: Not Given Montelukast Sodium (Singulair) 10 mg PO HS [facility] Last Admin: 05/26/18 23:21 Dose: 10 mg Naloxone HCl (Narcan Inj) 0.4 mg IV.PUSH UNSCH PRN PRN Reason: SEE DOSE INSTRUCTIONS Nystatin (Mycostatin Powder) 1 applicatio TOPICAL Q12H [facility] Last Admin: 05/27/18 10:04 Dose: 1 applicatio Pantoprazole Sodium (Protonix) 40 mg PO DAILY [facility] Last Admin: 05/27/18 10:04 Dose: Not Given Potassium Chloride (Kcl 40 Meq/30 Ml Liq) 40 meq PO UNSCH PRN PRN Reason: NEEDED Quetiapine Fumarate (Seroquel) 50 mg PO [facility] Vitamin D (Vitamin D3) 2,000 unit PO DAILY [facility] Last Admin: 05/27/18 10:04 Dose: Not Given <Lea Fontenot - Last Filed: 05/27/18 16:15> Allergies Allergy/AdvReac Type Severity Reaction Status Date / Time aspirin Allergy Severe wheezing, Verified 04/17/18 23:08 runny nose, watery eyes Shellfish Allergy Unknown Uncoded 04/17/18 23:04 Home Medications Medication Instructions Recorded Confirmed Type bupropion HCl (smoking deter) 150 mg PO BID 05/19/18 05/19/18 History [Zyban] buspirone 5 mg PO BID 05/19/18 05/19/18 History cholecalciferol (vitamin D3) 2,000 unit PO DAILY 05/19/18 05/19/18 History fluconazole 100 mg PO DAILY 05/19/18 05/19/18 History glipizide 5 mg PO [facility] 05/19/18 05/19/18 History glipizide 7.5 mg PO 05/19/18 05/19/18 History hydrochlorothiazide 25 mg PO DAILY 05/19/18 05/19/18 History levofloxacin [Levaquin] 750 mg PO DAILY 05/19/18 05/19/18 History levothyroxine 25 mcg PO DAILY 05/19/18 05/19/18 History levothyroxine 75 mcg PO DAILY 05/19/18 05/19/18 History meloxicam 7.5 mg PO DAILY 05/19/18 05/19/18 History metoprolol tartrate [Lopressor] 50 mg PO BID 05/19/18 05/19/18 History montelukast 10 mg PO 05/19/18 05/19/18 History omeprazole 40 mg PO DAILY 05/19/18 05/19/18 History quetiapine 50 mg PO HS 05/19/18 05/19/18 History torsemide 40 mg PO DAILY 05/19/18 05/19/18 History trazodone 150 mg PO HS 05/19/18 05/19/18 History Exam Vital signs: Vital Signs 05/26/18 16:00 05/26/18 20:00 05/27/18 00:00 Temperature 97.7 F 98.7 F 97.3 F L Pulse Rate 90 102 H 106 H Respiratory Rate 22 17 22 Blood Pressure 96/54 L 109/58 L 101/57 L Pulse Oximetry 94 L 17 L 94 L 05/27/18 08:00 05/27/18 12:00 Temperature 98.2 F 98.0 F Pulse Rate 114 H 86 Respiratory Rate 22 22 Blood Pressure 110/64 108/62 Pulse Oximetry 94 L 95 Intake & Output 05/26/18 05/27/18 05/27/18 18:59 06:59 18:59 Intake Total 680 / 680 190 / 190 Output Total 1000 / 1000 Balance -320 / -320 190 / 190 Weight 156.1 kg Intake: IV 300 / 300 100 / 100 Magnesium Sulfate 1 gm/D5W 100 100 / 100 ml Premix 100 ML @ 100 mls/hr IV.SIG Q1H IAN Rx#:[id number] KCl 10 mEq Premix Inj 10 meq In 300 / 300 100 ml @ 100 mls/hr IV.SIG Q1H IAN Rx#:[id number] Oral 380 / 380 90 / 90 Output: Urine 1000 / 1000 Other: Date of Last Bowel Movement 05/26/18 05/27/18 # Bowel Movements 0 - Constitutional moderate distress, morbidly obese - Routine HEENT Exam Head: Present: normocephalic, atraumatic ENT: Present: mucous membranes dry - Routine Neck Exam Present: supple (Obese) - Routine Respiratory Exam Present: decreased breath sounds - Routine Cardiovascular Exam Present: S1, S2 - Routine Abdominal Exam Present: soft (Large, obese, active bowel sounds, no obvious tenderness to light palpation) - Routine Skin Exam Present: intact (Wound care?), dry - Routine Neurological Exam Present: altered mental status <Brielle Soto - Last Filed: 05/27/18 14:50> Vital signs: Vital Signs 05/26/18 20:00 05/27/18 00:00 05/27/18 08:00 Temperature 98.7 F 97.3 F L 98.2 F Pulse Rate 102 H 106 H 114 H Respiratory Rate 17 22 22 Blood Pressure 109/58 L 101/57 L 110/64 Pulse Oximetry 17 L 94 L 94 L 05/27/18 12:00 Temperature 98.0 F Pulse Rate 108 H Respiratory Rate 22 Blood Pressure 108/62 Pulse Oximetry 95 Intake & Output 05/26/18 05/27/18 05/27/18 18:59 06:59 18:59 Intake Total 680 / 680 190 / 190 Output Total 1000 / 1000 Balance -320 / -320 190 / 190 Weight 156.1 kg Intake: IV 300 / 300 100 / 100 Magnesium Sulfate 1 gm/D5W 100 100 / 100 ml Premix 100 ML @ 100 mls/hr IV.SIG Q1H IAN Rx#:[id number] KCl 10 mEq Premix Inj 10 meq In 300 / 300 100 ml @ 100 mls/hr IV.SIG Q1H IAN Rx#:[id number] Oral 380 / 380 90 / 90 Output: Urine 1000 / 1000 Other: Date of Last Bowel Movement 05/26/18 05/27/18 # Bowel Movements 0 <Lea Fontenot - Last Filed: 05/27/18 16:15> Results - Labs CBC & Chem 7: 05/26/18 06:34 05/26/18 06:34 Labs: Laboratory Results - last 24 hr 05/26/18 05/26/18 05/27/18 16:46 20:21 08:06 POC Glucose 138 H 102 131 H 05/27/18 11:39 POC Glucose 114 H <Brielle Soto - Last Filed: 05/27/18 14:50> - Labs CBC & Chem 7: 05/26/18 06:34 05/26/18 06:34 Labs: Laboratory Results - last 24 hr 05/26/18 05/26/18 05/27/18 16:46 20:21 08:06 POC Glucose 138 H 102 131 H 05/27/18 11:39 POC Glucose 114 H <Lea Fontenot - Last Filed: 05/27/18 16:15> Assessment and Plan (1) Morbid obesity Status: Resolved Code(s): E66.01 - Morbid (severe) obesity due to excess calories (2) Increased nutritional needs Status: Acute Code(s): R63.8 - Other symptoms and signs concerning food and fluid intake - Plan Nutritional needs for morbidly obese female, gastroenterology consulted for PEG tube placement History of severe dysphasia and previous PEG tube placement noted per staff but unknown timing for insertion or removal. Currently patient is moderately agitated and is allowing very minimal tactile stimulation, unable to view abdomen at this time Patient is day 40 in the hospital initially with renal failure respiratory failure and COPD, anemia Encephalopathy patient continues with altered mental status and moderate anxiety . With minimal stimulation, patient screams out and hollers for her daughter and states she needs to go pick her up. There is currently no family present to assist with history. Currently patient is on Eliquis first dose inhaled on 05/27/2018. Will plan 3 days off Eliquis and work towards PEG tube placement Monday. Plan Consent for PEG tube placement Monday N.p.o. Monday night midnight before PEG tube placement on Monday Ancef 1 g operations support coordinator before procedure Continue to hold Eliquis Further recommendations to follow Will get nutritional consult if it not already been done Patient is seen per myself and Dr. Fontenot, this note was written on her behalf <Brielle Soto - Last Filed: 05/27/18 14:50> (1) Morbid obesity Status: Resolved Code(s): E66.01 - Morbid (severe) obesity due to excess calories (2) Increased nutritional needs Status: Acute Code(s): R63.8 - Other symptoms and signs concerning food and fluid intake - Attending Attestation seen, examined agree with above discussed with family and patient, she is eating now, does not want a peg for now we will ask nutritional service to evaluate her we will restart her anticoagulation Due to morbid obesity, gi will not be able to place peg tube, if clinically indicated and patient agrees with PEG please consult Ir for now anticoagulation restarted as she and her family would like few days to decide about it Gi will sign off thanks <Lea Fontenot - Last Filed: 05/27/18 16:15>
[2018-05-27] MEDS ORDERED: Metoprolol Tartrate 25 MG Tablet PO ONE (17:25)
[2018-05-27] MEDS: Montelukast 10 MG Tablet PO SCH (21:13)
[2018-05-28] MEDS: dilTIAZem 60 MG Tablet PO SCH ×4 (00:40→17:36)
--- NOTE | 2018-05-28 08:07 | P.PNNEU ---
Subjective Active Medications: Active Medications Generic Name Dose Route Start Last Admin Trade Name Freq PRN Reason Stop Dose Admin Acetaminophen 650 mg 05/20/18 00:00 Tylenol PO Q4H PRN SEE LABEL COMMENTS Albuterol 1 ampul 05/20/18 00:00 05/25/18 21:23 Duoneb Neb (Prn) NEB 1 ampul Q2HR NEB PRN Administration SHORT OF BREATH Apixaban 5 mg 05/27/18 21:00 05/27/18 21:13 Eliquis PO 5 mg BID IAN Administration Bisacodyl 10 mg 05/20/18 00:00 Dulcolax Supp RECTAL Q24H PRN SEVERE CONSITIPATION Bupropion HCl 150 mg 05/20/18 09:00 Wellbutrin Sr PO DAILY IAN Buspirone HCl 5 mg 05/20/18 09:00 Buspar PO BID IAN Dextrose 50 ml 05/20/18 00:00 D50w Vial IV.PUSH UNSCH PRN PER HYPOGLYCEMIA PROTOCOL Diltiazem HCl 60 mg 05/20/18 00:00 05/28/18 06:10 Cardizem PO 60 mg Q6H IAN Administration Diphenhydramine HCl 25 mg 05/20/18 00:00 Benadryl PO Q4H PRN SEE LABEL COMMENTS Furosemide 20 mg 05/26/18 09:00 05/27/18 10:03 Lasix PO Not Given DAILY IAN Glucagon 1 mg 05/20/18 00:00 Glucagon Inj OTHER PRN PRN for Hypoglycemia Protocol Sodium Phosphate 30 mmol/ 260 mls @ 43.333 mls/hr 05/20/18 00:00 Sodium Chloride IV.SIG UNSCH PRN SEE LABEL COMMENTS Cefazolin Sodium 1,000 mg/ 100 mls @ 100 mls/hr 05/30/18 10:00 Sodium Chloride IV.SIG TUBE ROOM CASHIER PRN ON-CALL Insulin Aspart 0 unit 05/20/18 08:00 05/27/18 21:13 Novolog Insulin Suppl Scale Inj SQ Not Given ACHS IAN Protocol Labetalol HCl 10 mg 05/20/18 00:00 Trandate Inj IV.PUSH Q4H PRN HR > 110 , SBP > 110 Levofloxacin 750 mg 05/25/18 13:00 05/27/18 12:00 Levaquin PO 05/30/18 12:59 750 mg Q48H IAN Administration Levothyroxine Sodium 200 mcg 05/26/18 06:00 05/28/18 06:10 Synthroid PO 200 mcg DAILY@0600 IAN Administration Metoprolol Tartrate 50 mg 05/20/18 09:00 05/27/18 21:13 Lopressor PO 50 mg BID IAN Administration Montelukast Sodium 10 mg 05/20/18 21:00 05/27/18 21:13 Singulair PO 10 mg HS [facility] Administration Naloxone HCl 0.4 mg 05/20/18 00:00 Narcan Inj IV.PUSH UNSCH PRN SEE DOSE INSTRUCTIONS Nystatin 1 applicatio 05/20/18 09:00 05/27/18 21:13 Mycostatin Powder TOPICAL 1 applicatio Q12H IAN Administration Pantoprazole Sodium 40 mg 05/20/18 09:00 05/27/18 10:04 Protonix PO Not Given DAILY [facility] Potassium Chloride 40 meq 05/20/18 00:00 Kcl 40 Meq/30 Ml Liq PO UNSCH PRN NEEDED Quetiapine Fumarate 50 mg 05/20/18 21:00 Seroquel PO [facility] Vitamin D 2,000 unit 05/20/18 09:00 05/27/18 10:04 Vitamin D3 PO Not Given DAILY [facility] Allergies/Adverse Reactions: Allergies Allergy/AdvReac Type Severity Reaction Status Date / Time aspirin Allergy Severe wheezing, Verified 04/17/18 23:08 runny nose, watery eyes Shellfish Allergy Unknown Uncoded 04/17/18 23:04 Physical Exam Vital signs: Vital Signs 05/27/18 12:00 05/27/18 16:00 05/27/18 20:00 Temperature 98.0 F 98.1 F 97.9 F Pulse Rate 108 H 84 97 H Respiratory Rate 22 22 18 Blood Pressure 108/62 112/66 162/94 H Pulse Oximetry 95 95 95 05/28/18 00:00 05/28/18 04:00 Temperature 99.3 F 99 F Pulse Rate 114 H 104 H Respiratory Rate 18 18 Blood Pressure 95/53 L 111/59 L Pulse Oximetry 95 93 L Intake & Output 05/27/18 05/28/18 05/28/18 18:59 06:59 18:59 Intake Total 220 / 220 240 / 240 Output Total 300 / 300 Balance 220 / 220 -60 / -60 Weight 153.6 kg Intake: Oral 220 / 220 240 / 240 Output: Urine 300 / 300 Other: # Voids 1,200 # Incontinent Voids 2 # Bowel Movements 1 # Incontinent Bowel Movements 5 Narrative: awake alert seems unhappy moving all speech fluent - Urinary Catheter Management Indwelling Urethral Catheter Cath placed during this visit: no Reason for continuing: Not indwelling catheter Objective Laboratory Results - last 24 hr 05/27/18 05/27/18 05/27/18 08:06 11:39 17:22 POC Glucose 131 H 114 H 124 H 05/27/18 19:45 POC Glucose 121 H Microbiology 05/26/18 05:45 Urine Culture - Preliminary Catheterized Urine Immature growth - reincubate Review/Management - Review/Management Plan: imp b12 mri eeg ok 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 Her ABG yesterday was negative. I would limit her antipsychotics if possible. 05/28/18 unhappy but more alert nursing to try and figure out what she is complaining about and call me back
[2018-05-28] MEDS: Furosemide 20 MG Tablet PO SCH (09:44)
[2018-05-28] MEDS: Metoprolol Tartrate 50 MG Tablet PO SCH ×2 (09:44→20:06)
[2018-05-28] MEDS: Insulin NovoLOG Aspart Correctional Sugar Inj SQ SCH ×4 (09:45→20:24)
--- NOTE | 2018-05-28 11:17 | P.PN ---
Subjective Interval history: awake and alert, initially states feels fine- when asked about her appetitie- states she ate then started crying- states her "daughter is in the builiding" very tearful Physical Exam Vital signs: Vital Signs 05/27/18 12:00 05/27/18 16:00 05/27/18 20:00 Temperature 98.0 F 98.1 F 97.9 F Pulse Rate 108 H 84 97 H Respiratory Rate 22 22 18 Blood Pressure 108/62 112/66 162/94 H Pulse Oximetry 95 95 95 05/28/18 00:00 05/28/18 04:00 05/28/18 08:56 Temperature 99.3 F 99 F Pulse Rate 114 H 104 H Respiratory Rate 18 18 Blood Pressure 95/53 L 111/59 L Pulse Oximetry 95 93 L 96 Intake & Output 05/27/18 05/28/18 05/28/18 18:59 06:59 18:59 Intake Total 220 / 220 240 / 240 Output Total 300 / 300 Balance 220 / 220 -60 / -60 Weight 153.6 kg Intake: Oral 220 / 220 240 / 240 Output: Urine 300 / 300 Other: # Voids 1,200 # Incontinent Voids 2 # Bowel Movements 1 # Incontinent Bowel Movements 5 Narrative: awake alert, oreinted to per son, states "I am eating" crying at the same anicteric lungs- no raels irregular rhythm abdomenflabby soft extremities- mvoes all - Urinary Catheter Management Indwelling Urethral Catheter Cath placed during this visit: no Reason for continuing: Not indwelling catheter Results - Labs CBC & Chem 7: 05/26/18 06:34 05/29/18 05:30 Laboratory Results - last 24 hr 05/27/18 05/27/18 05/27/18 11:39 17:22 19:45 POC Glucose 114 H 124 H 121 H 05/28/18 08:06 POC Glucose 118 H Microbiology 05/26/18 05:45 Catheterized Urine Urine Culture - Final 50-100,000 cfu/mL mixed gram positive sujatha (probable contaminants) Assessment and Plan - Assessment (1) Respiratory failure with hypoxia and hypercapnia Code(s): J96.91 - Respiratory failure, unspecified with hypoxia; J96.92 - Respiratory failure, unspecified with hypercapnia Status: Acute (2) BETTIE and COPD overlap syndrome Code(s): G47.33 - Obstructive sleep apnea (adult) (pediatric); J44.9 - Chronic obstructive pulmonary disease, unspecified Status: Acute (3) Hypothyroidism Code(s): E03.9 - Hypothyroidism, unspecified Status: Acute - Plan 72 years old female (1) Respiratory failure with hypoxia and hypercapnia Code(s): J96.91 - Respiratory failure, unspecified with hypoxia; J96.92 - Respiratory failure, unspecified with hypercapnia Status: Acute (2) BETTIE and COPD overlap syndrome Code(s): G47.33 - Obstructive sleep apnea (adult) (pediatric); J44.9 - Chronic obstructive pulmonary disease, unspecified Status: Acute (3) Hypothyroidism Code(s): E03.9 - Hypothyroidism, unspecified Status: Acute - Plan 72-year-old female admitted secondary to hypoglycemia with renal failure and respiratory failure Encephalopathy Impression: Unclear etiology. . Per EMR review, some hypercapnia. Head CT negative 05/14. Hypoglycemia and confusion on admission. No obvious recent electrolyte abnormalities; prior ammonia mildly increased (35 05/19). TSH elevated (50 recently) -repeat ABG - persistent mild hypercapnia, pH 7.47 -Receiving IV Levothyroxine per Endocrine -Neurology ff -Overall improvement, sedating medications discontinued Acute hypercapnic hypoxemic respiratory failure was placed on BiPAP. Probably Pickwickian syndrome Pulmonary Infiltrate Respiratory status continues to improve Continue supplementation with oxygen and follow clinically Pulmonology ff -BIPAP at night Acute renal failure Impression: Cr 1.5 Continue monitoring renal function Avoid nephrotoxins Lasix switched to 20 mg po today Sodium electrolyte disturbance- improved Patient has had problems with hypernatremia and hyponatremia Currently balance Monitor sodium levels Hypokalemia - replace with IV KCL - ff BMP - Lasix 20 mg daily UTI. Pseudomonas aeruginosa and E faecium -ID ff -Continue Cefepime -Zyvox stopped 05/23 -monitor CBC, UA, C/S -Discussed with ID 05/25 - ; will repeat Urine culture- no growth -Monitor mental status Poor po intake Dysphagia I- d/w staff nurse - poor po - ? PEG candidate- get GI consult Acute diastolic CHF exacerbation Stabilized Lasix 20 mg daily A. fib RVR - rate lcontrolled Cardiology following Continue metoprolol and Cardizem restarted on Eliquis Hypothyroidism. Impression: TSH 50 05/23; s/p Levothyroxine 500mcg IV. TSH ~20 today Endocrinology consulted -Patient improving; will give 200 mcg PO -recheck in 4-6 weeks Diabetes mellitus type 2 Follow blood sugars Insulin sliding scale Diabetic diet Hypokamenia - on KCL replacement, ff BMP Depression- patient crying and tearful still- refusing meds Suicidal intent Resolved. 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 reconsult psychiatry today - med/psych floor candidate Generalized pain Continue pain Management Anemia of chronic disease Stabilized for now Follow CBC Cutaneous candidiasis. Course of Diflucan completed; continue Nystatin DVT prophylaxis Continue Eliquis Discharge Planning: monitoring po intake- PEG cancelled- son refused- states he would come in and feed her DC planning
[2018-05-28] MEDS: Nystatin 100,000 UNITS/GM Powder 15 GM Bottle TOPICAL SCH (13:56)
[2018-05-28 14:12] LABS: Calcium 7.9 mg/dL (8.5-10.1); Magnesium 1.5 mg/dL (1.5-2.5)
[2018-05-28 14:27] LABS: Free T4 (Free Thyroxine) 1.41 ng/dL (0.76-1.46); Thyroid Stimulating Hormone 24.4 uIU/mL (0.358-3.740)
[2018-05-28 14:28] LABS: Potassium 2.8 meq/L (3.5-5.1)
[2018-05-28] MEDS ORDERED: Mag Sulf 1 gm/100 ml Premix 100 ML IV.SIG ONE (16:00)
--- NOTE | 2018-05-28 16:46 | P.PN ---
Subjective Interval history: OBTUNDED AROUSIBLE Physical Exam Vital signs: Vital Signs 05/27/18 20:00 05/28/18 00:00 05/28/18 04:00 Temperature 97.9 F 99.3 F 99 F Pulse Rate 97 H 114 H 104 H Respiratory Rate 18 18 18 Blood Pressure 162/94 H 95/53 L 111/59 L Pulse Oximetry 95 95 93 L 05/28/18 08:00 05/28/18 08:56 05/28/18 12:00 Temperature 98.7 F 98.3 F Pulse Rate 90 91 H Respiratory Rate 20 20 Blood Pressure 100/76 103/64 Pulse Oximetry 91 L 96 96 Intake & Output 05/27/18 05/28/18 05/28/18 18:59 06:59 18:59 Intake Total 220 / 220 240 / 240 Output Total 300 / 300 Balance 220 / 220 -60 / -60 Weight 153.6 kg Intake: Oral 220 / 220 240 / 240 Output: Urine 300 / 300 Other: # Voids 1,200 # Incontinent Voids 2 # Bowel Movements 1 # Incontinent Bowel Movements 5 - Constitutional no acute distress - Routine HEENT Exam Head: Present: normocephalic, atraumatic Eye: Present: PERRL - Routine Neck Exam Present: supple - Routine Respiratory Exam Present: respiratory distress - Routine Cardiovascular Exam Present: RRR - Routine Abdominal Exam Present: soft - Routine Extremities Exam Present: edema - Urinary Catheter Management Indwelling Urethral Catheter Cath placed during this visit: no Reason for continuing: Not indwelling catheter Results - Labs CBC & Chem 7: 05/26/18 06:34 05/28/18 13:25 Laboratory Results - last 24 hr 05/27/18 05/27/18 05/28/18 17:22 19:45 08:06 Sodium Potassium Chloride Carbon Dioxide Anion Gap BUN Creatinine Estimated GFR POC Glucose 124 H 121 H 118 H Random Glucose Calcium Magnesium TSH Free T4 05/28/18 05/28/18 12:15 13:25 Sodium 140 Potassium 2.8 L* Chloride 99 Carbon Dioxide 31.0 Anion Gap 10 BUN 20 H Creatinine 1.48 H Estimated GFR 35 L POC Glucose 112 H Random Glucose 135 H Calcium 7.9 L Magnesium 1.5 TSH 24.400 H Free T4 1.41 Microbiology 05/26/18 05:45 Catheterized Urine Urine Culture - Final 50-100,000 cfu/mL mixed gram positive sujatha (probable contaminants) Assessment and Plan - Assessment (1) Respiratory failure with hypoxia and hypercapnia Code(s): J96.91 - Respiratory failure, unspecified with hypoxia; J96.92 - Respiratory failure, unspecified with hypercapnia Status: Acute (2) BETTIE and COPD overlap syndrome Code(s): G47.33 - Obstructive sleep apnea (adult) (pediatric); J44.9 - Chronic obstructive pulmonary disease, unspecified Status: Acute - Plan RESPIRATORY FAILURE BETTIE MORBID OBESITY PLAN loose wt O2 NEEDED BIPAP SLEEP PULM TOILET
--- NOTE | 2018-05-28 18:02 | P.DIET ---
Nutritional Evaluation Type of nutrition evaluation: follow-up Nutrition consult regarding: Tube Feeding (Consult for Tube Feeding, PEG Wed) Nutrition screening: [facility] Subjective Barriers to Nutrition: Refuses to eat at times Subjective Comments: Pt seen in her room w/ RN assisting her w/ a Pepsi to swallow her meds. Pt seemed confused and wasn't able to answer some questions accurately. She denied N/V/D/C. Denied trouble chewing/swallowing/trouble feeding herself. She was unable to recall previous conversation w/ GI about possible PEG tube. Per RN, family no longer wants PEG. Objective - Diagnosis Profound Hypoglycemia - Objective % IBW: 250 Body Weight Used for Calculations: IBW (61.4 kg) Energy Needs - Lower Range (kCal/kg): 28 Energy Needs - Upper Range (kCal/kg): 32 Lower Limit kCal/kg (kCals): 1,719 Upper Limit kCal/kg (kCals): 1,965 Lower Limit Protein Factor (Grams per Kg): 1.2 Upper Limit Protein Factor (Grams per Kg): 1.5 Lower Protein Needs (Protein): 74 Upper Protein Needs (Protein): 92 Dietitian Reviewed in Medical Record: Current diet, Curent medications, Intake & Output, Labs, Medical history Diet Order: Mechanical Soft, 2 gm Na, 1800 ADA Oral Diet Intake Amount: Poor <50% Speech Therapy Recommendations: Yes (rec mechanical soft with thin liqs) Wound Care Note: 05/21 WOCN note reviewed, no pressure injuries. Objective Comments: +MRSA Meds: Lasix, Synthroid Labs: K 2.8, BUN 20, slipman 1.48, eGFR 35, Gluc 135, A1C 7.0 LBM 05/27 Assessment Assessment: Pt seen in her room and lunch tray was still there. Pt stated she ate 100% of her lunch when in fact it was still untouched. When asked about this, pt did not provide a response. Pt did state she was hungry and would eat dinner. Pt agreed to Glucerna Paulette TISee and was able to tell me what they were without prompting. Pt said she was able to feed herself, but I think she may require assistance or monitoring by EXPORT SPECIALIST to ensure that she actually eats. Unsure if PEG tube will placed, but if it is I recommend Glucerna 1.5 @ 55mls/hr x 22hrs to provide 1815kcals, 100g PRO, and 918mls fluid. If PEG tube is placed, TFing must be held 1hr before and after Synthroid administration. I agree that pt would benefit from a PEG tube based on her previous poor PO intake while in hospital and possible lack of desire to eat. Will add Glucerna Shakes TID to meal trays. Dietitian following. Recommendations: 1. Continue current diet. 2. If PEG tube placed, recommend Glucerna 1.5 @ 55mls/hr x 22hrs. 3. TFing must be held 1hr before and after Synthroid is given. 4. Glucerna Shakes TID. 5. Recommend a EXPORT SPECIALIST assist/monitor pt during meal times to ensure that she eats. Dietitian to Monitor: Lab values, Supplement acceptance, Intake & Output, Diet tolerance, Weight change, PO Intake, Medical course Comments: Initiation of nutrition support
[2018-05-28] MEDS: Potassium Chlor 10 mEq Premix 10 MEQ/100 ML PIGGYBACK IV.SIG SCH ×3 (20:04→22:13)
[2018-05-28] MEDS: Montelukast 10 MG Tablet PO SCH (20:07)
[2018-05-29] MEDS: dilTIAZem 60 MG Tablet PO SCH ×4 (01:11→17:36)
[2018-05-29] MEDS: Nystatin 100,000 UNITS/GM Powder 15 GM Bottle TOPICAL SCH ×3 (01:12→21:33)
[2018-05-29 07:15] LABS: Calcium 8.2 mg/dL (8.5-10.1); Carbon Dioxide 29.6 meq/L (21.0-32.0); Magnesium 1.7 mg/dL (1.5-2.5); Potassium 3.1 meq/L (3.5-5.1)
[2018-05-29 07:26] LABS: Free T4 (Free Thyroxine) 1.31 ng/dL (0.76-1.46); Thyroid Stimulating Hormone 26.9 uIU/mL (0.358-3.740)
[2018-05-29] MEDS: Metoprolol Tartrate 50 MG Tablet PO SCH ×2 (08:05→21:33)
[2018-05-29] MEDS: Furosemide 20 MG Tablet PO SCH (08:05)
[2018-05-29] MEDS: Insulin NovoLOG Aspart Correctional Sugar Inj SQ SCH ×4 (08:08→21:33)
--- NOTE | 2018-05-29 11:09 | P.PNNEU ---
Subjective Subjective Comments: No acute events reported No headache No chest pain No dyspnea Active Medications: Active Medications Generic Name Dose Route Start Last Admin Trade Name Freq PRN Reason Stop Dose Admin Acetaminophen 650 mg 05/20/18 00:00 Tylenol PO Q4H PRN SEE LABEL COMMENTS Albuterol 1 ampul 05/20/18 00:00 05/25/18 21:23 Duoneb Neb (Prn) NEB 1 ampul Q2HR NEB PRN Administration SHORT OF BREATH Apixaban 5 mg 05/27/18 21:00 05/29/18 08:05 Eliquis PO 5 mg BID IAN Administration Bisacodyl 10 mg 05/20/18 00:00 Dulcolax Supp RECTAL Q24H PRN SEVERE CONSITIPATION Bupropion HCl 150 mg 05/20/18 09:00 Wellbutrin Sr PO DAILY IAN Buspirone HCl 5 mg 05/20/18 09:00 Buspar PO BID IAN Dextrose 50 ml 05/20/18 00:00 D50w Vial IV.PUSH UNSCH PRN PER HYPOGLYCEMIA PROTOCOL Diltiazem HCl 60 mg 05/20/18 00:00 05/29/18 05:59 Cardizem PO 60 mg Q6H IAN Administration Diphenhydramine HCl 25 mg 05/20/18 00:00 Benadryl PO Q4H PRN SEE LABEL COMMENTS Furosemide 20 mg 05/26/18 09:00 05/29/18 08:05 Lasix PO 20 mg DAILY IAN Administration Glucagon 1 mg 05/20/18 00:00 Glucagon Inj OTHER PRN PRN for Hypoglycemia Protocol Cefazolin Sodium 1,000 mg/ 100 mls @ 100 mls/hr 05/30/18 10:00 Sodium Chloride IV.SIG DIRECTOR OF CATERING PRN ON-CALL Insulin Aspart 0 unit 05/20/18 08:00 05/29/18 08:08 Novolog Insulin Suppl Scale Inj SQ Not Given ACHS IAN Protocol Labetalol HCl 10 mg 05/20/18 00:00 Trandate Inj IV.PUSH Q4H PRN HR > 110 , SBP > 110 Levofloxacin 750 mg 05/25/18 13:00 05/27/18 12:00 Levaquin PO 05/30/18 12:59 750 mg Q48H IAN Administration Levothyroxine Sodium 200 mcg 05/26/18 06:00 05/29/18 05:59 Synthroid PO 200 mcg DAILY@0600 IAN Administration Metoprolol Tartrate 50 mg 05/20/18 09:00 05/29/18 08:05 Lopressor PO 50 mg BID IAN Administration Montelukast Sodium 10 mg 05/20/18 21:00 05/28/18 20:07 Singulair PO 10 mg HS IAN Administration Naloxone HCl 0.4 mg 05/20/18 00:00 Narcan Inj IV.PUSH UNSCH PRN SEE DOSE INSTRUCTIONS Nystatin 1 applicatio 05/20/18 09:00 05/29/18 08:07 Mycostatin Powder TOPICAL 1 applicatio Q12H IAN Administration Pantoprazole Sodium 40 mg 05/20/18 09:00 05/29/18 08:05 Protonix PO 40 mg DAILY IAN Administration Potassium Chloride 20 meq 05/28/18 21:00 05/29/18 08:05 K-Dur PO 20 meq BID IAN Administration Quetiapine Fumarate 50 mg 05/20/18 21:00 Seroquel PO HS [facility] Vitamin D 2,000 unit 05/20/18 09:00 05/29/18 08:06 Vitamin D3 PO 2,000 unit DAILY IAN Administration Allergies/Adverse Reactions: Allergies Allergy/AdvReac Type Severity Reaction Status Date / Time aspirin Allergy Severe wheezing, Verified 04/17/18 23:08 runny nose, watery eyes Shellfish Allergy Unknown Uncoded 04/17/18 23:04 Physical Exam Vital signs: Vital Signs 05/28/18 12:00 05/28/18 16:00 05/28/18 20:00 Temperature 98.3 F 98.2 F 98 F Pulse Rate 91 H 87 95 H Respiratory Rate 20 20 Blood Pressure 103/64 110/67 97/53 L Pulse Oximetry 96 94 L 97 05/28/18 20:37 05/29/18 00:00 05/29/18 04:00 Temperature 97.1 F L 98.4 F Pulse Rate 69 83 Respiratory Rate 20 18 Blood Pressure 104/55 L 116/53 L Pulse Oximetry 94 L 97 96 05/29/18 08:00 05/29/18 10:48 Temperature 98.0 F Pulse Rate 85 Respiratory Rate 20 Blood Pressure 90/54 L Pulse Oximetry 88 L 99 Intake & Output 05/28/18 05/29/18 05/29/18 18:59 06:59 18:59 Intake Total 440 / 440 Balance 440 / 440 Weight 154.2 kg Intake: IV 200 / 200 KCl 10 mEq Premix Inj 10 meq In 200 / 200 100 ml @ 100 mls/hr IV.SIG Q1H IAN Rx#:[id number] Oral 240 / 240 Other: # Voids 2 Date of Last Bowel Movement 05/27/18 05/28/18 # Bowel Movements 0 Narrative: awake alert feeling well voice strong 2018 - Urinary Catheter Management Indwelling Urethral Catheter Cath placed during this visit: no Reason for continuing: Not indwelling catheter Objective Laboratory Results - last 24 hr 05/28/18 05/28/18 05/28/18 12:15 13:25 17:01 Sodium 140 Potassium 2.8 L* Chloride 99 Carbon Dioxide 31.0 Anion Gap 10 BUN 20 H Creatinine 1.48 H Estimated GFR 35 L POC Glucose 112 H 97 Random Glucose 135 H Calcium 7.9 L Magnesium 1.5 TSH 24.400 H Free T4 1.41 05/28/18 05/29/18 05/29/18 20:23 05:30 08:08 Sodium 141 Potassium 3.1 L Chloride 99 Carbon Dioxide 29.6 Anion Gap 12 BUN 19 H Creatinine 1.38 H Estimated GFR 38 L POC Glucose 102 121 H Random Glucose 91 Calcium 8.2 L Magnesium 1.7 TSH 26.900 H Free T4 1.31 Microbiology 05/26/18 05:45 Urine Culture - Final Catheterized Urine 50-100,000 cfu/mL mixed gram positive sujatha (probable contaminants) Review/Management - Review/Management Plan: imp b12 mri eeg ok 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 Her ABG yesterday was negative. I would limit her antipsychotics if possible. 05/28/18 unhappy but more alert nursing to try and figure out what she is complaining about and call me back 05/29/18 much better today mainly psych issues will sign off and please limit sedation as much as possible oob PT
[2018-05-29] MEDS: levoFLOXacin 750 MG Tablet PO SCH (12:24)
--- NOTE | 2018-05-29 13:08 | P.PNPSY ---
Subjective Remarks: Patient was seen today for psychiatric reevaluation. The patient is found calm , cooperative, a little bit lethargic, kind of confused. The patient reports feeling better, she described good mood, even though she is a little labile, denies suicidal enemas ideation, she denies visual and auditory hallucinations. The patient is oriented to person, place, partially oriented in time. No prominent attention deficit or fluctuation of consciousness present. No agitation, no aggressive behavior. Mental Status Examination Appearance: Appropriate Consciousness: Alert Orientation: Person, Place, Date/Time Speech: Unremarkable Language: Adequate Fund of Knowledge: Adequate Memory: Unremarkable Mood: Appropriate Affect: Appropriate Thought Process & Associations: Intact Thought Content: Appropriate Hallucination Type: None Suicidal Ideation: No Suicidal Plan: No Suicidal Intention: No Homicidal Ideation: No Insight: Fair Judgment: Adequate Assessment and Plan - Assessment (1) Delirium Code(s): R41.0 - Disorientation, unspecified Status: Acute - Plan Plan: Estimated LOS: [] days No psychiatric admission indicated Justification for Continued Inpatient Stay: Patient is confused, but oriented in person and place, partially oriented in time. Denies depression, denies anxiety, denies lebron and psychosis. Denies suicidal and homicidal ideation, she denies visual and auditory hallucinations. No admission indicated. Can start Seroquel 25 mg twice daily to help with the delirium.
--- NOTE | 2018-05-29 15:47 | P.PNPAL ---
Reason for Visit Reason for visit: Reason for visit a. To assist with evaluation and management of symptoms including: dyspnea, pain, confusion. b. To assist medical decision maker(s) with: better understanding of current medical conditions; weighing benefits/burdens of medical treatment options; making medical treatment decisions. Subjective Subjective/Interval History: Patient seen today for follow-up of symptom management for dyspnea, pain, confusion. Patient remains mildly dyspneic with conversation, now weaned down to 2 L nasal cannula, but continues to require BiPAP overnight. Her dyspnea is constant, worsening with activity, improving with rest. She has pickwickian syndrome due to morbid obesity, however has lost nearly 90 pounds since her admission 04/17. Her admitting weight was 428 pounds, today's weight 339. She continues to require an elevated head of bed, as her dyspnea increases with flat bed. She has multiple skin wounds to include midline buttocks, left buttocks, left foot, left chest skin tear, pressure injury to the sacrum and Nena in her multiple skin folds, which all cause discomfort. Pain is constant, exacerbated by movement or pressure, with a burning or aching sensation of moderate severity. Her confusion is improving and she is currently able to state the month and year correctly however did not know which hospital she was in, why she was here or how long she had been here. She became very tearful and stated she just "wanted to go home". She had previously been in an SNF but had been discharged due to lack of participation with physical therapy. PT notes at this evaluation note that after a few repetitions of right upper extremity active ROM , patient became tearful and refused any additional participation. PT is recommending SNF placement. . Family/Friend Interactions: Spoke with son regarding patient's motivation for physical therapy and its contribution to assisting with jail placement for rehabilitation. Son states that his mother asked for the "blue stretchy band from the house" so that she could start participating in her own rehabilitation outside of regular PT visits. PT notes from 05/25 indicate poor participation, tearfulness. Encourage son to work with his mother on motivation to accomplish her goals to go home. He has agreed to assist with that and is inquiring about possible discharge plans. Advised him at this time no plans have been made for discharge. . Objective Vital Signs: Vital Signs 05/28/18 16:00 05/28/18 20:00 05/28/18 20:37 Temperature 98.2 F 98 F Pulse Rate 87 95 H Respiratory Rate 20 Blood Pressure 110/67 97/53 L Pulse Oximetry 94 L 97 94 L 05/29/18 00:00 05/29/18 04:00 05/29/18 08:00 Temperature 97.1 F L 98.4 F 98.0 F Pulse Rate 69 83 85 Respiratory Rate 20 18 20 Blood Pressure 104/55 L 116/53 L 90/54 L Pulse Oximetry 97 96 88 L 05/29/18 10:48 05/29/18 12:00 Temperature 97.9 F Pulse Rate 87 Respiratory Rate 20 Blood Pressure 107/55 L Pulse Oximetry 99 97 Intake & Output 05/28/18 05/29/18 05/29/18 18:59 06:59 18:59 Intake Total 100 / 100 440 / 440 Balance 100 / 100 440 / 440 Weight 339 lb 15.245 oz Intake: IV 100 / 100 200 / 200 KCl 10 mEq Premix Inj 10 meq In 200 / 200 100 ml @ 100 mls/hr IV.SIG Q1H IAN Rx#:[id number] Oral 240 / 240 Other: # Voids 2 Date of Last Bowel Movement 05/27/18 05/28/18 # Bowel Movements 0 Physical Exam: Physical Exam CONSTITUTIONAL/GENERAL: This is morbidly obese female lying in bed, on nasal cannula, in no acute distress TUBES/LINES/DRAINS: NC, PIV. SKIN: Multiple areas of ecchymosis and skin tears on bilateral upper extremities , skin temperature appropriate. Not diaphoretic. Multiple areas of Nena rash in skin folds, under breasts, back folds, abdominal folds, groin folds, left buttocks, midline buttocks, coccyx. ENT: Nose without bleeding or purulent drainage. Oral mucosa pink, moist. NECK: Trachea midline. CARDIOVASCULAR: S1, S2, irregular rhythm, controlled rate, no rub murmur or gallop auscultated. Distant heart tones. RESPIRATORY/CHEST: Distant breath sounds. Lungs clear, diminished GASTROINTESTINAL: Abdomen soft, morbidly obese, non-tender, nondistended. Unable to palpate for organomegaly due to body habitus. No guarding. Bowel sounds present. GENITOURINARY: Without palpable bladder distension. Incontinent. MUSCULOSKELETAL: 1 + generalized dependent edema. NEUROLOGICAL: Alert, oriented to self, time. Redirected to place and purpose. PSYCHIATRIC: Depressed, tearful. . Diagnostic Tests Laboratory: Laboratory Results - last 72 hr 05/26/18 05/26/18 05/27/18 16:46 20:21 08:06 Sodium Potassium Chloride Carbon Dioxide Anion Gap BUN Creatinine Estimated GFR POC Glucose 138 H 102 131 H Random Glucose Calcium Magnesium TSH Free T4 05/27/18 05/27/18 05/27/18 11:39 17:22 19:45 Sodium Potassium Chloride Carbon Dioxide Anion Gap BUN Creatinine Estimated GFR POC Glucose 114 H 124 H 121 H Random Glucose Calcium Magnesium TSH Free T4 05/28/18 05/28/18 05/28/18 08:06 12:15 13:25 Sodium 140 Potassium 2.8 L* Chloride 99 Carbon Dioxide 31.0 Anion Gap 10 BUN 20 H Creatinine 1.48 H Estimated GFR 35 L POC Glucose 118 H 112 H Random Glucose 135 H Calcium 7.9 L Magnesium 1.5 TSH 24.400 H Free T4 1.41 05/28/18 05/28/18 05/29/18 17:01 20:23 05:30 Sodium 141 Potassium 3.1 L Chloride 99 Carbon Dioxide 29.6 Anion Gap 12 BUN 19 H Creatinine 1.38 H Estimated GFR 38 L POC Glucose 97 102 Random Glucose 91 Calcium 8.2 L Magnesium 1.7 TSH 26.900 H Free T4 1.31 05/29/18 05/29/18 08:08 12:23 Sodium Potassium Chloride Carbon Dioxide Anion Gap BUN Creatinine Estimated GFR POC Glucose 121 H 127 H Random Glucose Calcium Magnesium TSH Free T4 Result Diagrams: 05/26/18 06:34 05/29/18 05:30 Microbiology: Microbiology 05/26/18 05:45 Urine Culture - Final Catheterized Urine 50-100,000 cfu/mL mixed gram positive sujatha (probable contaminants) Imaging: ITS Impressions Chest X-Ray 05/25/18 00:00 CONCLUSION: Hazy bilateral pleural-parenchymal opacities, likely reflecting alveolar disease and layering effusion. Slight improvement from prior. Assessment and Plan Pertinent Non-Medical Issues: Pertinent Non-Medical Issues Psychosocial:She grew up in [place], moving to [place] 20 years ago. She is , however lives with her ex- and has 1 son. She identifies an Ruben Power, her ex-, as her life partner and Ruben Power as her son. 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 Spiritual: She identifies with the Zoroastrianism nico. Legal: No advance directives have been completed. Patient is not currently capacitated to make her own decisions, uncertain if she will regain capacity. Not . Has 1 son. According to [place] statutes, health care proxy decision making falls to her son, Ruben Power. Ethical issues impacting care: None noted. . Important Contacts: Important Contacts * Son/ HCP: Ruben Power * Life partner: Ruben Power . Prognosis: Prognosis Her prognosis is guarded. She was last seen at 9 PM and the time of arrival at [facility] ED was 10:16. EMS required multiple attempts in establishing an I/oh in the patient's left humerus to provide resuscitative glucose, so it is estimated that she was hypoglycemic for at least an hour. The residual effects of that are not yet known. Currently she has delirium, confusion and agitation and possible suicidal ideation which has been both reported and refuted by the patient. She has a suspected urinary tract infection, for which she is receiving Rocephin pending culture results. She is morbidly obese and at risk for continued complications and decline. . Code Status: Full Code Plan: Plan * Legal decision maker: Patient is not currently capacitated to make her own decisions, uncertain if she will regain capacity. Not . Has 1 son. According to [place] statutes, health care proxy decision making falls to her son, Ruben Power. * FULL CODE * Palliative care will continue to follow the patient during hospital course as condition evolves, to assist patient/decision-maker with understanding of their medical conditions, weighing benefits/burdens of treatment options, for clarification of goals of treatment. Additionally will assist with any symptoms of palliative concern. SYMPTOMS: * Pain: Multifactorial sources to include bedbound status, invasive lines, skin wounds, Nena infections and skin folds. There is no pain medication available for her save Tylenol. She is taking no recent doses of that. As she is becoming more alert, she may be more able to identify sources of pain and better able to have her needs met. She appears to be having some improvement as urinary tract * Dyspnea: Multifactorial to include pickwickian syndrome, morbid obesity, underlying pulmonary disease. She chronically retains CO2 with an average level in the 60 mmHg range, compensated by an elevated bicarbonate level. She is resting comfortably on 2 l nasal cannula, but remains at elevated risk of respiratory compromise and recurrent intubation. As family goals are aggressive , they would agree to reintubation. * Confusion: She remains moderately confused but now knows the month and year. She states she wants to go home and thinks she can walk to the bathroom but has not been out of bed in 6 weeks and was previously bedbound. This is improving since treatment of urinary tract infection and severe hypothyroidism. * Pot Room Tapper consultation has been requested for thyroid management. * Would recommend wound care management of multiple areas of breakdown in skin folds. Attestation Attestation: To help prompt me to consider important information that might be impacting today's encounter and assessment, information from prior notes written by myself or my colleagues may have been "brought forward" into today's note. My signature on this note, however, is an attestation that I personally performed the exam, history, and/or decision-making noted today, and, unless otherwise indicated, the interactions with patient, family, and staff as well as the review of records all occurred today. I also attest that the listed assessment and stated plan reflect my best clinical judgment today based on the combination of historical information, prior notes, and today's exam/ interactions. When time spent is documented, it refers only to time spent today by the signer, or if indicated, combined time spent today by collaborating physician/nurse practitioner. .
--- NOTE | 2018-05-29 15:56 | P.PN ---
Subjective Interval history: patient is very much awake and alert and carried on conversation with out crying states she ate well feels like she is going to have a BM- we call Aide to help us Physical Exam Vital signs: Vital Signs 05/28/18 16:00 05/28/18 20:00 05/28/18 20:37 Temperature 98.2 F 98 F Pulse Rate 87 95 H Respiratory Rate 20 Blood Pressure 110/67 97/53 L Pulse Oximetry 94 L 97 94 L 05/29/18 00:00 05/29/18 04:00 05/29/18 08:00 Temperature 97.1 F L 98.4 F 98.0 F Pulse Rate 69 83 85 Respiratory Rate 20 18 20 Blood Pressure 104/55 L 116/53 L 90/54 L Pulse Oximetry 97 96 88 L 05/29/18 10:48 05/29/18 12:00 Temperature 97.9 F Pulse Rate 90 Respiratory Rate 20 Blood Pressure 107/55 L Pulse Oximetry 99 97 Intake & Output 05/28/18 05/29/18 05/29/18 18:59 06:59 18:59 Intake Total 100 / 100 440 / 440 Balance 100 / 100 440 / 440 Weight 154.2 kg Intake: IV 100 / 100 200 / 200 KCl 10 mEq Premix Inj 10 meq In 200 / 200 100 ml @ 100 mls/hr IV.SIG Q1H IAN Rx#:[id number] Oral 240 / 240 Other: # Voids 2 Date of Last Bowel Movement 05/27/18 05/28/18 # Bowel Movements 0 - Urinary Catheter Management Indwelling Urethral Catheter Cath placed during this visit: no Reason for continuing: Not indwelling catheter Results - Labs CBC & Chem 7: 05/26/18 06:34 05/29/18 05:30 Laboratory Results - last 24 hr 05/28/18 05/28/18 05/29/18 17:01 20:23 05:30 Sodium 141 Potassium 3.1 L Chloride 99 Carbon Dioxide 29.6 Anion Gap 12 BUN 19 H Creatinine 1.38 H Estimated GFR 38 L POC Glucose 97 102 Random Glucose 91 Calcium 8.2 L Magnesium 1.7 TSH 26.900 H Free T4 1.31 05/29/18 05/29/18 08:08 12:23 Sodium Potassium Chloride Carbon Dioxide Anion Gap BUN Creatinine Estimated GFR POC Glucose 121 H 127 H Random Glucose Calcium Magnesium TSH Free T4 Assessment and Plan - Assessment (1) Respiratory failure with hypoxia and hypercapnia Code(s): J96.91 - Respiratory failure, unspecified with hypoxia; J96.92 - Respiratory failure, unspecified with hypercapnia Status: Acute (2) BETTIE and COPD overlap syndrome Code(s): G47.33 - Obstructive sleep apnea (adult) (pediatric); J44.9 - Chronic obstructive pulmonary disease, unspecified Status: Acute (3) Hypothyroidism Code(s): E03.9 - Hypothyroidism, unspecified Status: Acute - Plan 72 years old female (1) Respiratory failure with hypoxia and hypercapnia Code(s): J96.91 - Respiratory failure, unspecified with hypoxia; J96.92 - Respiratory failure, unspecified with hypercapnia Status: Acute (2) BETTIE and COPD overlap syndrome Code(s): G47.33 - Obstructive sleep apnea (adult) (pediatric); J44.9 - Chronic obstructive pulmonary disease, unspecified Status: Acute (3) Hypothyroidism Code(s): E03.9 - Hypothyroidism, unspecified Status: Acute - Plan 72-year-old female admitted secondary to hypoglycemia with renal failure and respiratory failure Encephalopathy Impression: Unclear etiology. . Per EMR review, some hypercapnia. Head CT negative 05/14. Hypoglycemia and confusion on admission. No obvious recent electrolyte abnormalities; prior ammonia mildly increased (35 05/19). TSH elevated (50 recently) -repeat ABG - persistent mild hypercapnia, pH 7.47 -Receiving IV Levothyroxine per Endocrine -Neurology ff -Overall improvement, sedating medications discontinued Acute hypercapnic hypoxemic respiratory failure was placed on BiPAP. Probably Pickwickian syndrome Pulmonary Infiltrate Respiratory status continues to improve Continue supplementation with oxygen and follow clinically Pulmonology ff -BIPAP at night Acute renal failure Impression: Cr 1.5 Continue monitoring renal function Avoid nephrotoxins Lasix switched to 20 mg po today Sodium electrolyte disturbance- improved Patient has had problems with hypernatremia and hyponatremia Currently balance Monitor sodium levels Hypokalemia - ff BMP - Lasix 20 mg daily - increase KCL 40 meq po bid UTI. Pseudomonas aeruginosa and E faecium -ID ff -Continue Cefepime -Zyvox stopped 05/23 -monitor CBC, UA, C/S -Discussed with ID 05/25 - ; will repeat Urine culture- no growth -Monitor mental status Poor po intake Dysphagia I- d/w staff nurse - poor po - ? PEG candidate- get GI consult Acute diastolic CHF exacerbation Stabilized Lasix 20 mg daily A. fib RVR - rate lcontrolled Cardiology following Continue metoprolol and Cardizem on Eliquis Hypothyroidism. Impression: TSH 50 05/23; s/p Levothyroxine 500mcg IV. TSH ~20 today Endocrinology consulted -Patient improving; will give 200 mcg PO -recheck in 4-6 weeks Diabetes mellitus type 2 Follow blood sugars Insulin sliding scale Diabetic diet Depression- patient crying and tearful still- refusing meds Suicidal intent Resolved. 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 reconsult psychiatry today - med/psych floor candidate Generalized pain Continue pain Management Anemia of chronic disease Stabilized for now Follow CBC Cutaneous candidiasis. Course of Diflucan completed; continue Nystatin DVT prophylaxis Continue Eliquis Discharge Planning: monitoring po intake- PEG cancelled- son refused- states he would come in and feed her DC planning - CM ff- difficut placement
--- NOTE | 2018-05-29 16:55 | P.PN ---
Subjective Interval history: alert today cant ambulate no distress Physical Exam Vital signs: Vital Signs 05/28/18 20:00 05/28/18 20:37 05/29/18 00:00 Temperature 98 F 97.1 F L Pulse Rate 95 H 69 Respiratory Rate 20 Blood Pressure 97/53 L 104/55 L Pulse Oximetry 97 94 L 97 05/29/18 04:00 05/29/18 08:00 05/29/18 10:48 Temperature 98.4 F 98.0 F Pulse Rate 83 85 Respiratory Rate 18 20 Blood Pressure 116/53 L 90/54 L Pulse Oximetry 96 88 L 99 05/29/18 12:00 Temperature 97.9 F Pulse Rate 90 Respiratory Rate 20 Blood Pressure 107/55 L Pulse Oximetry 97 Intake & Output 05/28/18 05/29/18 05/29/18 18:59 06:59 18:59 Intake Total 100 / 100 440 / 440 Balance 100 / 100 440 / 440 Weight 154.2 kg Intake: IV 100 / 100 200 / 200 KCl 10 mEq Premix Inj 10 meq In 200 / 200 100 ml @ 100 mls/hr IV.SIG Q1H IAN Rx#:[id number] Oral 240 / 240 Other: # Voids 2 Date of Last Bowel Movement 05/27/18 05/28/18 # Bowel Movements 0 Narrative: awake alert, anicteric lungs- no raels irregular rhythm abdomenflabby soft extremities- mvoes all - Urinary Catheter Management Indwelling Urethral Catheter Cath placed during this visit: no Reason for continuing: Not indwelling catheter Results - Labs CBC & Chem 7: 05/26/18 06:34 05/29/18 05:30 Laboratory Results - last 24 hr 05/28/18 05/28/18 05/29/18 17:01 20:23 05:30 Sodium 141 Potassium 3.1 L Chloride 99 Carbon Dioxide 29.6 Anion Gap 12 BUN 19 H Creatinine 1.38 H Estimated GFR 38 L POC Glucose 97 102 Random Glucose 91 Calcium 8.2 L Magnesium 1.7 TSH 26.900 H Free T4 1.31 05/29/18 05/29/18 08:08 12:23 Sodium Potassium Chloride Carbon Dioxide Anion Gap BUN Creatinine Estimated GFR POC Glucose 121 H 127 H Random Glucose Calcium Magnesium TSH Free T4 Assessment and Plan - Assessment (1) Respiratory failure with hypoxia and hypercapnia Code(s): J96.91 - Respiratory failure, unspecified with hypoxia; J96.92 - Respiratory failure, unspecified with hypercapnia Status: Acute (2) BETTIE and COPD overlap syndrome Code(s): G47.33 - Obstructive sleep apnea (adult) (pediatric); J44.9 - Chronic obstructive pulmonary disease, unspecified Status: Acute - Plan RESPIRATORY FAILURE BETTIE MORBID OBESITY PLAN loose wt O2 NEEDED BIPAP SLEEP PULM TOILET
--- NOTE | 2018-05-29 19:53 | P.PNEN ---
Subjective Interval history: Patient was loaded with IV Levothyroxine with resuling TSH going down to davion of 12. Currently she is going back up. Levothyroxine PO had been increased to 200 mcg PO QAM which does not seem to be enough to maintain her at target. Tonight pt is confused. Reports she was supposed to get this morning and that she does not remember the name of her future . Reports she has bagels in 107 awaiting her frustrated and upset. Unable to give proper history to assess symptoms of hypothyroidism. Physical Exam Vital signs: Vital Signs 05/28/18 20:00 05/28/18 20:37 05/29/18 00:00 Temperature 98 F 97.1 F L Pulse Rate 95 H 69 Respiratory Rate 20 Blood Pressure 97/53 L 104/55 L Pulse Oximetry 97 94 L 97 05/29/18 04:00 05/29/18 08:00 05/29/18 10:48 Temperature 98.4 F 98.0 F Pulse Rate 83 85 Respiratory Rate 18 20 Blood Pressure 116/53 L 90/54 L Pulse Oximetry 96 88 L 99 05/29/18 12:00 05/29/18 16:00 Temperature 97.9 F 98.4 F Pulse Rate 90 91 H Respiratory Rate 20 20 Blood Pressure 107/55 L 107/56 L Pulse Oximetry 97 97 Intake & Output 05/29/18 05/29/18 05/30/18 06:59 18:59 06:59 Intake Total 440 / 440 840 / 840 Output Total 2 / 2 Balance 440 / 440 838 / 838 Weight 154.2 kg Intake: IV 200 / 200 KCl 10 mEq Premix Inj 10 meq In 200 / 200 100 ml @ 100 mls/hr IV.SIG Q1H IAN Rx#:[id number] Oral 240 / 240 840 / 840 Output: Stool 2 / 2 Other: # Voids 2 2 Date of Last Bowel Movement 05/28/18 # Bowel Movements 0 - Constitutional no acute distress, morbidly obese Comments: Patient is upset as stated above. She is awake and alert but not able to provide a good history. She is pursed lip breathing. - Urinary Catheter Management Indwelling Urethral Catheter Cath placed during this visit: no Reason for continuing: Not indwelling catheter Assessment and Plan - Assessment (1) Hypothyroidism Code(s): E03.9 - Hypothyroidism, unspecified Status: Acute - Plan Severe Hypothyroidism MS Changes Labs reviewed. Will give patient another 200 mcg IVP tonight and will increase her dose of Levothyroxine to 250 mcg to be given first thing in the morning at 5 AM to be given with full glass of water and 1 hour prior to other PO intake. Will continue to monitor her TSH and Free T4. Orders written. Thank you for allowing me to participate in the medical management of this interesting lady. Will follow.
[2018-05-29] MEDS: Montelukast 10 MG Tablet PO SCH (21:34)
[2018-05-30] MEDS: dilTIAZem 60 MG Tablet PO SCH ×4 (01:52→21:19)
[2018-05-30] MEDS: Levothyroxine 125 MCG Tablet PO SCH (05:29)
[2018-05-30] MEDS: Furosemide 20 MG Tablet PO SCH (10:13)
[2018-05-30] MEDS: Insulin NovoLOG Aspart Correctional Sugar Inj SQ SCH ×4 (10:14→21:25)
[2018-05-30] MEDS: Nystatin 100,000 UNITS/GM Powder 15 GM Bottle TOPICAL SCH ×2 (10:14→21:21)
--- NOTE | 2018-05-30 10:27 | P.PN ---
Subjective Interval history: patient seen with staff nurse- awake and alert, oriented to person and place "[place]" interactive and looking forward to see his son denies any pain, nausea or vomiting ff all commands- and moves all feet, arms when asked to then she started becoming tearful Physical Exam Vital signs: Vital Signs 05/29/18 10:48 05/29/18 12:00 05/29/18 16:00 Temperature 97.9 F 98.4 F Pulse Rate 90 91 H Respiratory Rate 20 20 Blood Pressure 107/55 L 107/56 L Pulse Oximetry 99 97 97 05/29/18 20:00 05/30/18 00:00 05/30/18 04:00 Temperature 98.8 F 98.4 F 97.9 F Pulse Rate 96 H 54 L 71 Respiratory Rate 18 16 14 Blood Pressure 123/57 L 110/69 114/62 Pulse Oximetry 94 L 95 95 Intake & Output 05/29/18 05/30/18 05/30/18 18:59 06:59 18:59 Intake Total 840 / 840 Output Total 2 / 2 Balance 838 / 838 Weight 155.6 kg Intake: Oral 840 / 840 Output: Stool 2 / 2 Other: # Voids 2 Narrative: heavy set awake alert, oriented to person and place initially smiling then started crying again anicteric lungs- no rales irregular rhythm, rate 84 abdomen flabby soft extremities- no edema moves all spontaneously- - Urinary Catheter Management Indwelling Urethral Catheter Cath placed during this visit: no Reason for continuing: Not indwelling catheter Results - Labs CBC & Chem 7: 05/26/18 06:34 05/29/18 05:30 Laboratory Results - last 24 hr 05/29/18 05/29/18 05/29/18 12:23 17:37 21:23 POC Glucose 127 H 107 120 H 05/30/18 08:11 POC Glucose 119 H Assessment and Plan - Assessment (1) Respiratory failure with hypoxia and hypercapnia Code(s): J96.91 - Respiratory failure, unspecified with hypoxia; J96.92 - Respiratory failure, unspecified with hypercapnia Status: Acute (2) BETTIE and COPD overlap syndrome Code(s): G47.33 - Obstructive sleep apnea (adult) (pediatric); J44.9 - Chronic obstructive pulmonary disease, unspecified Status: Acute (3) Hypothyroidism Code(s): E03.9 - Hypothyroidism, unspecified Status: Acute - Plan 72 years old female (1) Respiratory failure with hypoxia and hypercapnia Code(s): J96.91 - Respiratory failure, unspecified with hypoxia; J96.92 - Respiratory failure, unspecified with hypercapnia Status: Acute (2) BETTIE and COPD overlap syndrome Code(s): G47.33 - Obstructive sleep apnea (adult) (pediatric); J44.9 - Chronic obstructive pulmonary disease, unspecified Status: Acute (3) Hypothyroidism Code(s): E03.9 - Hypothyroidism, unspecified Status: Acute - Plan 72-year-old female admitted secondary to hypoglycemia with renal failure and respiratory failure Encephalopathy Impression: Unclear etiology. . Per EMR review, some hypercapnia. Head CT negative 05/14. Hypoglycemia and confusion on admission. No obvious recent electrolyte abnormalities; prior ammonia mildly increased (35 05/19). TSH elevated (50 recently) -repeat ABG - persistent mild hypercapnia, pH 7.47 -Receiving IV Levothyroxine per Endocrine -Neurology ff -Overall improvement, sedating medications discontinued Acute hypercapnic hypoxemic respiratory failure was placed on BiPAP. Probably Pickwickian syndrome Pulmonary Infiltrate Respiratory status continues to improve Continue supplementation with oxygen and follow clinically Pulmonology ff -BIPAP at night Acute renal failure Impression: Cr 1.5 Continue monitoring renal function Avoid nephrotoxins Lasix switched to 20 mg po today Sodium electrolyte disturbance- improved Patient has had problems with hypernatremia and hyponatremia Currently balance Monitor sodium levels Hypokalemia - ff BMP - Lasix 20 mg daily - increase KCL 40 meq po bid UTI. Pseudomonas aeruginosa and E faecium -ID ff -Continue Cefepime -Zyvox stopped 05/23 -monitor CBC, UA, C/S -Discussed with ID 05/25 - ; will repeat Urine culture- no growth -Monitor mental status Poor po intake Dysphagia I- d/w staff nurse - poor po - ? PEG candidate- get GI consult Acute diastolic CHF exacerbation Stabilized Lasix 20 mg daily A. fib RVR - rate controlled Cardiology following Continue metoprolol and Cardizem on Eliquis Hypothyroidism. Impression: TSH 50 05/23; s/p Levothyroxine 500mcg IV. TSH ~[address] Brown ff closely along with us - on synthroid replacement Diabetes mellitus type 2 Follow blood sugars Insulin sliding scale Diabetic diet Depression- emotionally labile Suicidal intent - Resolved. 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 Psychiatry reconsulted and ff Generalized pain Continue pain Management- limit pain meds Anemia of chronic disease Stabilized for now Follow CBC Cutaneous candidiasis. Course of Diflucan completed; continue Nystatin DVT prophylaxis Continue Eliquis Discharge Planning: monitoring po intake- PEG cancelled- son refused- states he would come in and feed her DC planning - CM ff- difficut placement
[2018-05-30 11:59] LABS: Calcium 7.7 mg/dL (8.5-10.1); Carbon Dioxide 30.3 meq/L (21.0-32.0); Potassium 5.2 meq/L (3.5-5.1)
[2018-05-30 12:29] LABS: Triiodothyronine (T3) Free 1.79 pg/mL (2.18-3.98)
[2018-05-30] MEDS: Metoprolol Tartrate 50 MG Tablet PO SCH ×2 (15:07→21:19)
--- NOTE | 2018-05-30 15:15 | P.PN ---
Subjective Interval history: ALERT IN [facility] Physical Exam Vital signs: Vital Signs 05/29/18 16:00 05/29/18 20:00 05/30/18 00:00 Temperature 98.4 F 98.8 F 98.4 F Pulse Rate 91 H 96 H 54 L Respiratory Rate 20 18 16 Blood Pressure 107/56 L 123/57 L 110/69 Pulse Oximetry 97 94 L 95 05/30/18 04:00 05/30/18 08:00 05/30/18 12:00 Temperature 97.9 F 98.4 F 97.8 F Pulse Rate 71 87 90 Respiratory Rate 14 17 18 Blood Pressure 114/62 97/50 L 110/64 Pulse Oximetry 95 92 L 97 05/30/18 15:12 Temperature Pulse Rate 102 H Respiratory Rate Blood Pressure 104/61 Pulse Oximetry Intake & Output 05/29/18 05/30/18 05/30/18 18:59 06:59 18:59 Intake Total 840 / 840 Output Total 2 / 2 Balance 838 / 838 Weight 155.6 kg Intake: Oral 840 / 840 Output: Stool 2 / 2 Other: # Voids 2 Narrative: heavy set awake alert, oriented to person and place initially smiling then started crying again anicteric lungs- no rales irregular rhythm, rate 84 abdomen flabby soft extremities- no edema moves all spontaneously- - Urinary Catheter Management Indwelling Urethral Catheter Cath placed during this visit: no Reason for continuing: Not indwelling catheter Results - Labs CBC & Chem 7: 05/26/18 06:34 05/30/18 11:22 Laboratory Results - last 24 hr 05/29/18 05/29/18 05/30/18 17:37 21:23 08:11 Sodium Potassium Chloride Carbon Dioxide Anion Gap BUN Creatinine Estimated GFR POC Glucose 107 120 H 119 H Random Glucose Calcium Free T3 05/30/18 05/30/18 11:22 12:44 Sodium 139 Potassium 5.2 H D Chloride 101 Carbon Dioxide 30.3 Anion Gap 8 BUN 20 H Creatinine 1.49 H Estimated GFR 35 L POC Glucose 118 H Random Glucose 101 Calcium 7.7 L Free T3 1.79 L Assessment and Plan - Assessment (1) Respiratory failure with hypoxia and hypercapnia Code(s): J96.91 - Respiratory failure, unspecified with hypoxia; J96.92 - Respiratory failure, unspecified with hypercapnia Status: Acute (2) BETTIE and COPD overlap syndrome Code(s): G47.33 - Obstructive sleep apnea (adult) (pediatric); J44.9 - Chronic obstructive pulmonary disease, unspecified Status: Acute - Plan RESPIRATORY FAILURE BETTIE MORBID OBESITY PLAN loose wt O2 NEEDED BIPAP SLEEP PULM TOILET
[2018-05-30] MEDS: Montelukast 10 MG Tablet PO SCH (21:20)
[2018-05-31] MEDS: Levothyroxine 125 MCG Tablet PO SCH (06:46)
[2018-05-31] MEDS: dilTIAZem 60 MG Tablet PO SCH ×3 (06:47→21:00)
[2018-05-31] MEDS: Nystatin 100,000 UNITS/GM Powder 15 GM Bottle TOPICAL SCH ×2 (08:30→20:59)
[2018-05-31] MEDS: Insulin NovoLOG Aspart Correctional Sugar Inj SQ SCH ×4 (08:30→20:58)
[2018-05-31] MEDS: Metoprolol Tartrate 50 MG Tablet PO SCH ×2 (08:30→20:58)
[2018-05-31] MEDS: Furosemide 20 MG Tablet PO SCH (08:30)
--- NOTE | 2018-05-31 09:39 | P.PN ---
Subjective Interval history: ALERT NO SOB Physical Exam Vital signs: Vital Signs 05/30/18 12:00 05/30/18 15:12 05/30/18 16:00 Temperature 97.8 F Pulse Rate 90 102 H 101 H Respiratory Rate 18 Blood Pressure 110/64 104/61 Pulse Oximetry 97 05/30/18 18:00 05/30/18 20:00 05/31/18 00:00 Temperature 97.9 F 97.8 F 98.0 F Pulse Rate 88 96 H 92 H Respiratory Rate 18 20 20 Blood Pressure 108/62 111/75 114/73 Pulse Oximetry 96 96 95 05/31/18 04:00 05/31/18 08:00 Temperature 98.0 F Pulse Rate 96 H 83 Respiratory Rate 21 18 Blood Pressure 106/60 140/57 L Pulse Oximetry 94 L Intake & Output 05/30/18 05/31/18 05/31/18 18:59 06:59 18:59 Intake Total 240 / 240 Output Total Balance 239 / 239 Weight 153.8 kg Intake: Oral 240 / 240 Output: Urine Other: Date of Last Bowel Movement 05/30/18 Narrative: heavy set awake alert, oriented to person and place initially smiling then started crying again anicteric lungs- no rales irregular rhythm, rate 84 abdomen flabby soft extremities- no edema moves all spontaneously- - Urinary Catheter Management Indwelling Urethral Catheter Cath placed during this visit: no Reason for continuing: Not indwelling catheter Results - Labs CBC & Chem 7: 05/26/18 06:34 05/30/18 11:22 Laboratory Results - last 24 hr 05/30/18 05/30/18 05/30/18 11:22 12:44 17:30 Sodium 139 Potassium 5.2 H D Chloride 101 Carbon Dioxide 30.3 Anion Gap 8 BUN 20 H Creatinine 1.49 H Estimated GFR 35 L POC Glucose 118 H 102 Random Glucose 101 Calcium 7.7 L Free T3 1.79 L 05/30/18 05/31/18 21:22 07:27 Sodium Potassium Chloride Carbon Dioxide Anion Gap BUN Creatinine Estimated GFR POC Glucose 137 H 112 H Random Glucose Calcium Free T3 Assessment and Plan - Assessment (1) Respiratory failure with hypoxia and hypercapnia Code(s): J96.91 - Respiratory failure, unspecified with hypoxia; J96.92 - Respiratory failure, unspecified with hypercapnia Status: Acute (2) BETTIE and COPD overlap syndrome Code(s): G47.33 - Obstructive sleep apnea (adult) (pediatric); J44.9 - Chronic obstructive pulmonary disease, unspecified Status: Acute - Plan RESPIRATORY FAILURE BETTIE MORBID [employer]ESITY PLAN loose wt O2 NEEDED BIPAP SLEEP PULM TOILET
--- NOTE | 2018-05-31 11:51 | P.PN ---
Subjective Interval history: d/w son and family now agress to PEG tube placement t- meet nutrtional requirement awake and alert Physical Exam Vital signs: Vital Signs 05/30/18 12:00 05/30/18 15:12 05/30/18 16:00 Temperature 97.8 F Pulse Rate 90 102 H 101 H Respiratory Rate 18 Blood Pressure 110/64 104/61 Pulse Oximetry 97 05/30/18 18:00 05/30/18 20:00 05/31/18 00:00 Temperature 97.9 F 97.8 F 98.0 F Pulse Rate 88 96 H 92 H Respiratory Rate 18 20 20 Blood Pressure 108/62 111/75 114/73 Pulse Oximetry 96 96 95 05/31/18 04:00 05/31/18 08:00 Temperature 98.0 F Pulse Rate 96 H 83 Respiratory Rate 21 18 Blood Pressure 106/60 140/57 L Pulse Oximetry 94 L Intake & Output 05/30/18 05/31/18 05/31/18 18:59 06:59 18:59 Intake Total 240 / 240 Output Total Balance 239 / 239 Weight 153.8 kg Intake: Oral 240 / 240 Output: Urine Other: Date of Last Bowel Movement 05/30/18 Narrative: heavy set awake alert, oriented to person and place ,calm this am- seen with family anicteric lungs- no rales irregular rhythm, rate 84 abdomen flabby soft extremities- no edema moves all spontaneously- - Urinary Catheter Management Indwelling Urethral Catheter Cath placed during this visit: no Reason for continuing: Not indwelling catheter Results - Labs CBC & Chem 7: 05/26/18 06:34 05/31/18 10:43 Laboratory Results - last 24 hr 05/30/18 05/30/18 05/30/18 11:22 12:44 17:30 Sodium 139 Potassium 5.2 H D Chloride 101 Carbon Dioxide 30.3 Anion Gap 8 BUN 20 H Creatinine 1.49 H Estimated GFR 35 L POC Glucose 118 H 102 Random Glucose 101 Calcium 7.7 L Free T3 1.79 L 05/30/18 05/31/18 21:22 07:27 Sodium Potassium Chloride Carbon Dioxide Anion Gap BUN Creatinine Estimated GFR POC Glucose 137 H 112 H Random Glucose Calcium Free T3 Assessment and Plan - Assessment (1) Respiratory failure with hypoxia and hypercapnia Code(s): J96.91 - Respiratory failure, unspecified with hypoxia; J96.92 - Respiratory failure, unspecified with hypercapnia Status: Acute (2) BETTIE and COPD overlap syndrome Code(s): G47.33 - Obstructive sleep apnea (adult) (pediatric); J44.9 - Chronic obstructive pulmonary disease, unspecified Status: Acute (3) Hypothyroidism Code(s): E03.9 - Hypothyroidism, unspecified Status: Acute - Plan 72 years old female (1) Respiratory failure with hypoxia and hypercapnia Code(s): J96.91 - Respiratory failure, unspecified with hypoxia; J96.92 - Respiratory failure, unspecified with hypercapnia Status: Acute (2) BETTIE and COPD overlap syndrome Code(s): G47.33 - Obstructive sleep apnea (adult) (pediatric); J44.9 - Chronic obstructive pulmonary disease, unspecified Status: Acute (3) Hypothyroidism Code(s): E03.9 - Hypothyroidism, unspecified Status: Acute - Plan 72-year-old female admitted secondary to hypoglycemia with renal failure and respiratory failure Encephalopathy Impression: Unclear etiology. . Per EMR review, some hypercapnia. Head CT negative 05/14. Hypoglycemia and confusion on admission. No obvious recent electrolyte abnormalities; prior ammonia mildly increased (35 05/19). TSH elevated (50 recently) -repeat ABG - persistent mild hypercapnia, pH 7.47 -Receiving IV Levothyroxine per Endocrine -Neurology ff -Overall improvement, sedating medications discontinued Acute hypercapnic hypoxemic respiratory failure was placed on BiPAP. Probably Pickwickian syndrome Pulmonary Infiltrate Respiratory status continues to improve Continue supplementation with oxygen and follow clinically Pulmonology ff -BIPAP at night Acute renal failure Impression: Cr 1.5 Continue monitoring renal function Avoid nephrotoxins Lasix switched to 20 mg po today Sodium electrolyte disturbance- improved Patient has had problems with hypernatremia and hyponatremia Currently balance Monitor sodium levels Hypokalemia - ff BMP - Lasix 20 mg daily - increase KCL 40 meq po bid UTI. Pseudomonas aeruginosa and E faecium -ID ff -Continue Cefepime -Zyvox stopped 05/23 -monitor CBC, UA, C/S -Discussed with ID 05/25 - ; will repeat Urine culture- no growth -Monitor mental status Acute diastolic CHF exacerbation Stabilized Lasix 20 mg daily A. fib RVR - rate controlled Cardiology following Continue metoprolol and Cardizem on Eliquis Hypothyroidism. Impression: TSH 50 05/23; s/p Levothyroxine 500mcg IV. TSH ~[address] Brown ff closely along with us - on synthroid replacement Diabetes mellitus type 2 Follow blood sugars Insulin sliding scale Diabetic diet Depression- emotionally labile Suicidal intent - Resolved. 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 Psychiatry reconsulted and ff Generalized pain Continue pain Management- limit pain meds Anemia of chronic disease Stabilized for now Follow CBC Cutaneous candidiasis. Course of Diflucan completed; continue Nystatin DVT prophylaxis Continue Eliquis Poor po intake - family now agress to PEG placmen- consult GI will hold yen Discharge Planning:
[2018-05-31 11:59] LABS: Calcium 8.4 mg/dL (8.5-10.1); Carbon Dioxide 27.9 meq/L (21.0-32.0); Free T4 (Free Thyroxine) 1.68 ng/dL (0.76-1.46); Potassium 4.1 meq/L (3.5-5.1)
[2018-05-31] MEDS: Montelukast 10 MG Tablet PO SCH (20:57)
[2018-06-01] MEDS: dilTIAZem 60 MG Tablet PO SCH ×3 (06:13→21:03)
[2018-06-01] MEDS: Levothyroxine 125 MCG Tablet PO SCH (06:13)
[2018-06-01] MEDS: Metoprolol Tartrate 50 MG Tablet PO SCH ×2 (10:11→20:48)
[2018-06-01] MEDS: Insulin NovoLOG Aspart Correctional Sugar Inj SQ SCH ×3 (10:11→20:50)
[2018-06-01] MEDS: Furosemide 20 MG Tablet PO SCH (10:11)
[2018-06-01] MEDS: Nystatin 100,000 UNITS/GM Powder 15 GM Bottle TOPICAL SCH ×2 (10:11→20:46)
--- NOTE | 2018-06-01 13:29 | P.PN ---
Subjective Interval history: patient is definitely a different person today- awake and alerrt, feisty and interactive,nnot crying states she want sto eat she ate 75 % of gher breakfast this am, and wants more Physical Exam Vital signs: Vital Signs 05/31/18 15:34 05/31/18 16:00 05/31/18 18:23 Temperature 97.8 F Pulse Rate 80 77 Respiratory Rate 20 Blood Pressure 97/65 L Pulse Oximetry 94 L 97 05/31/18 20:00 05/31/18 20:30 05/31/18 21:14 Temperature 97.8 F Pulse Rate 89 Respiratory Rate 18 Blood Pressure 103/64 Pulse Oximetry 98 100 98 06/01/18 00:00 06/01/18 04:00 06/01/18 08:00 Temperature 97.9 F 97.8 F 97.3 F L Pulse Rate 70 82 80 Respiratory Rate 17 17 20 Blood Pressure 96/63 L 100/60 100/63 Pulse Oximetry 99 100 93 L 06/01/18 08:15 06/01/18 09:48 06/01/18 12:00 Temperature 98.4 F Pulse Rate 81 85 Respiratory Rate 20 Blood Pressure 104/51 L Pulse Oximetry 97 97 Intake & Output 05/31/18 06/01/18 06/01/18 18:59 06:59 18:59 Intake Total 480 / 480 Balance 480 / 480 Intake: Oral 480 / 480 Other: # Voids 1 # Incontinent Voids 2 # Bowel Movements 1 Narrative: heavy set awake alert, oriented to person and place ,very interactive and feisty, in good spirits anicteric lungs- no rales irregular rhythm, rate 76 abdomen flabby soft extremities- no edema moves all spontaneously- but generalized weakness - Urinary Catheter Management Indwelling Urethral Catheter Cath placed during this visit: no Reason for continuing: Not indwelling catheter Results - Labs CBC & Chem 7: 05/26/18 06:34 06/03/18 09:00 Laboratory Results - last 24 hr 05/31/18 05/31/18 06/01/18 17:59 20:54 07:21 POC Glucose 105 104 130 H 06/01/18 11:39 POC Glucose 179 H Assessment and Plan - Assessment (1) Respiratory failure with hypoxia and hypercapnia Code(s): J96.91 - Respiratory failure, unspecified with hypoxia; J96.92 - Respiratory failure, unspecified with hypercapnia Status: Acute (2) BETTIE and COPD overlap syndrome Code(s): G47.33 - Obstructive sleep apnea (adult) (pediatric); J44.9 - Chronic obstructive pulmonary disease, unspecified Status: Acute (3) Hypothyroidism Code(s): E03.9 - Hypothyroidism, unspecified Status: Acute - Plan 72 years old female (1) Respiratory failure with hypoxia and hypercapnia Code(s): J96.91 - Respiratory failure, unspecified with hypoxia; J96.92 - Respiratory failure, unspecified with hypercapnia Status: Acute (2) BETTIE and COPD overlap syndrome Code(s): G47.33 - Obstructive sleep apnea (adult) (pediatric); J44.9 - Chronic obstructive pulmonary disease, unspecified Status: Acute (3) Hypothyroidism Code(s): E03.9 - Hypothyroidism, unspecified Status: Acute - Plan 72-year-old female admitted secondary to hypoglycemia with renal failure and respiratory failure Encephalopathy Impression: Unclear etiology. . Per EMR review, some hypercapnia. Head CT negative 05/14. Hypoglycemia and confusion on admission. No obvious recent electrolyte abnormalities; prior ammonia mildly increased (35 05/19). TSH elevated (50 recently) -repeat ABG - persistent mild hypercapnia, pH 7.47 -on synthroid 250 mcg daily -Neurology ff -Overall improvement, sedating medications discontinued Acute hypercapnic hypoxemic respiratory failure was placed on BiPAP. Probably Pickwickian syndrome Pulmonary Infiltrate Respiratory status continues to improve Continue supplementation with oxygen and follow clinically Pulmonology ff -BIPAP at night Acute renal failure Impression: Cr 1.5 Continue monitoring renal function Avoid nephrotoxins Lasix switched to 20 mg po today Sodium electrolyte disturbance- improved Patient has had problems with hypernatremia and hyponatremia Currently balance Monitor sodium levels UTI. Pseudomonas aeruginosa and E faecium -ID ff - S.P Cefepime course 05/25 -S/P zyvox Zyvox stopped 05/23 -monitor CBC, UA, C/S -Discussed with ID 05/25 - ;repeat culture negative -Monitor mental status Acute diastolic CHF exacerbation Stabilized Lasix 20 mg daily A. fib RVR - rate controlled Cardiology following Continue metoprolol and Cardizem on Eliquis Hypothyroidism. Impression: TSH 50 05/23; s/p Levothyroxine 500mcg IV. TSH ~[address] Brown ff closely along with us - on synthroid replacement Diabetes mellitus type 2 Follow blood sugars Insulin sliding scale Diabetic diet Depression- emotionally interactive and feisty today Suicidal intent - Resolved. 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 Psychiatry reconsulted and ff Generalized pain Continue pain Management- limit pain meds Anemia of chronic disease Stabilized for now Follow CBC Cutaneous candidiasis. Course of Diflucan completed; continue Nystatin DVT prophylaxis Continue Eliquis Poor po intake- hold patient ate 75% this am - family now agress to PEG placmen- consult GI - patient state she does not want a PEG - discuss with her that her previous po intake was poor- I am eating will hold elqiuis- restart Discharge Planning: DC planning- will need SNF or ask CM to check on home situation or placement
--- NOTE | 2018-06-01 19:35 | P.PN ---
Subjective Interval history: alert watching TV Physical Exam Vital signs: Vital Signs 05/31/18 20:00 05/31/18 20:30 05/31/18 21:14 Temperature 97.8 F Pulse Rate 89 Respiratory Rate 18 Blood Pressure 103/64 Pulse Oximetry 98 100 98 06/01/18 00:00 06/01/18 04:00 06/01/18 08:00 Temperature 97.9 F 97.8 F 97.3 F L Pulse Rate 70 82 80 Respiratory Rate 17 17 20 Blood Pressure 96/63 L 100/60 100/63 Pulse Oximetry 99 100 93 L 06/01/18 08:15 06/01/18 09:48 06/01/18 12:00 Temperature 98.4 F Pulse Rate 81 85 Respiratory Rate 20 Blood Pressure 104/51 L Pulse Oximetry 97 97 06/01/18 12:09 06/01/18 16:00 06/01/18 17:41 Temperature 97.4 F L Pulse Rate 80 110 H Respiratory Rate 20 Blood Pressure 104/56 L Pulse Oximetry 94 L 97 Intake & Output 06/01/18 06/01/18 06/02/18 06:59 18:59 06:59 Intake Total 480 / 480 480 / 480 Balance 480 / 480 480 / 480 Intake: Oral 480 / 480 480 / 480 Other: # Voids 1 # Incontinent Voids 2 1 # Bowel Movements 1 1 Narrative: heavy set awake alert, oriented to person and place ,very interactive and feisty, in good spirits anicteric lungs- no rales irregular rhythm, rate 76 abdomen flabby soft extremities- no edema moves all spontaneously- but generalized weakness - Urinary Catheter Management Indwelling Urethral Catheter Cath placed during this visit: no Reason for continuing: Not indwelling catheter Results - Labs CBC & Chem 7: 05/26/18 06:34 05/31/18 10:43 Laboratory Results - last 24 hr 05/31/18 06/01/18 06/01/18 20:54 07:21 11:39 POC Glucose 104 130 H 179 H 06/01/18 17:26 POC Glucose 118 H Assessment and Plan - Assessment (1) Respiratory failure with hypoxia and hypercapnia Code(s): J96.91 - Respiratory failure, unspecified with hypoxia; J96.92 - Respiratory failure, unspecified with hypercapnia Status: Acute (2) BETTIE and COPD overlap syndrome Code(s): G47.33 - Obstructive sleep apnea (adult) (pediatric); J44.9 - Chronic obstructive pulmonary disease, unspecified Status: Acute - Plan RESPIRATORY FAILURE BETTIE MORBID OBESITY PLAN loose wt O2 NEEDED BIPAP SLEEP PULM TOILET
[2018-06-01] MEDS: Montelukast 10 MG Tablet PO SCH (20:46)
[2018-06-02] MEDS: Levothyroxine 125 MCG Tablet PO SCH (06:51)
[2018-06-02] MEDS: dilTIAZem 60 MG Tablet PO SCH ×3 (06:51→22:12)
[2018-06-02] MEDS: Insulin NovoLOG Aspart Correctional Sugar Inj SQ SCH ×4 (08:12→22:14)
[2018-06-02] MEDS: Furosemide 20 MG Tablet PO SCH (09:57)
[2018-06-02] MEDS: Nystatin 100,000 UNITS/GM Powder 15 GM Bottle TOPICAL SCH ×2 (10:13→22:13)
[2018-06-02] MEDS: Metoprolol Tartrate 50 MG Tablet PO SCH ×2 (10:14→22:11)
--- NOTE | 2018-06-02 16:11 | P.PN ---
Subjective Interval history: ALERT NO DISTRESS NON AMBULATORY Physical Exam Vital signs: Vital Signs 06/01/18 17:41 06/01/18 20:00 06/02/18 00:00 Temperature 98.1 F Pulse Rate 104 H 52 L Respiratory Rate 19 Blood Pressure 92/52 L Pulse Oximetry 97 96 97 06/02/18 04:00 06/02/18 08:00 06/02/18 10:44 Temperature 97 F L 97.2 F L Pulse Rate 106 H 113 H Respiratory Rate 18 20 Blood Pressure 93/52 L 77/53 L Pulse Oximetry 98 97 97 06/02/18 12:00 Temperature 98 F Pulse Rate 94 H Respiratory Rate 20 Blood Pressure 106/70 Pulse Oximetry 97 Intake & Output 06/01/18 06/02/18 06/02/18 18:59 06:59 18:59 Intake Total 480 / 480 240 / 240 Balance 480 / 480 240 / 240 Weight 153.8 kg Intake: Oral 480 / 480 240 / 240 Other: # Voids 3 # Incontinent Voids 1 Date of Last Bowel Movement 06/01/18 06/02/18 # Bowel Movements 1 1 Narrative: heavy set awake alert, oriented to person and place ,very interactive and feisty, in good spirits anicteric lungs- no rales irregular rhythm, rate 76 abdomen flabby soft extremities- no edema moves all spontaneously- but generalized weakness - Urinary Catheter Management Indwelling Urethral Catheter Cath placed during this visit: no Reason for continuing: Not indwelling catheter Results - Labs CBC & Chem 7: 05/26/18 06:34 05/31/18 10:43 Laboratory Results - last 24 hr 06/01/18 06/01/18 06/02/18 17:26 20:06 08:05 POC Glucose 118 H 112 H 119 H 06/02/18 12:05 POC Glucose 144 H Assessment and Plan - Assessment (1) Respiratory failure with hypoxia and hypercapnia Code(s): J96.91 - Respiratory failure, unspecified with hypoxia; J96.92 - Respiratory failure, unspecified with hypercapnia Status: Acute (2) BETTIE and COPD overlap syndrome Code(s): G47.33 - Obstructive sleep apnea (adult) (pediatric); J44.9 - Chronic obstructive pulmonary disease, unspecified Status: Acute - Plan RESPIRATORY FAILURE BETTIE MORBID [employer]ESITY PLAN loose wt O2 NEEDED BIPAP SLEEP PULM TOILET
--- NOTE | 2018-06-02 16:15 | P.PN ---
Subjective Interval history: awake and alert but not as verbally interactive as yesterday "I'm okay" Physical Exam Vital signs: Vital Signs 06/01/18 17:41 06/01/18 20:00 06/02/18 00:00 Temperature 98.1 F Pulse Rate 104 H 52 L Respiratory Rate 19 Blood Pressure 92/52 L Pulse Oximetry 97 96 97 06/02/18 04:00 06/02/18 08:00 06/02/18 10:44 Temperature 97 F L 97.2 F L Pulse Rate 106 H 113 H Respiratory Rate 18 20 Blood Pressure 93/52 L 77/53 L Pulse Oximetry 98 97 97 06/02/18 12:00 Temperature 98 F Pulse Rate 94 H Respiratory Rate 20 Blood Pressure 106/70 Pulse Oximetry 97 Intake & Output 06/01/18 06/02/18 06/02/18 18:59 06:59 18:59 Intake Total 480 / 480 240 / 240 Balance 480 / 480 240 / 240 Weight 153.8 kg Intake: Oral 480 / 480 240 / 240 Other: # Voids 3 # Incontinent Voids 1 Date of Last Bowel Movement 06/01/18 06/02/18 # Bowel Movements 1 1 Narrative: heavy set awake alert, oriented to person and place , anicteric lungs- no rales irregular rhythm, rate 76 abdomen flabby soft extremities- no edema moves all spontaneously- but generalized weakness - Urinary Catheter Management Indwelling Urethral Catheter Cath placed during this visit: no Reason for continuing: Not indwelling catheter Results - Labs CBC & Chem 7: 05/26/18 06:34 06/03/18 09:00 Laboratory Results - last 24 hr 06/01/18 06/01/18 06/02/18 17:26 20:06 08:05 POC Glucose 118 H 112 H 119 H 06/02/18 12:05 POC Glucose 144 H Assessment and Plan - Assessment (1) Respiratory failure with hypoxia and hypercapnia Code(s): J96.91 - Respiratory failure, unspecified with hypoxia; J96.92 - Respiratory failure, unspecified with hypercapnia Status: Acute (2) BETTIE and COPD overlap syndrome Code(s): G47.33 - Obstructive sleep apnea (adult) (pediatric); J44.9 - Chronic obstructive pulmonary disease, unspecified Status: Acute (3) Hypothyroidism Code(s): E03.9 - Hypothyroidism, unspecified Status: Acute - Plan 72 years old female (1) Respiratory failure with hypoxia and hypercapnia Code(s): J96.91 - Respiratory failure, unspecified with hypoxia; J96.92 - Respiratory failure, unspecified with hypercapnia Status: Acute (2) BETTIE and COPD overlap syndrome Code(s): G47.33 - Obstructive sleep apnea (adult) (pediatric); J44.9 - Chronic obstructive pulmonary disease, unspecified Status: Acute (3) Hypothyroidism Code(s): E03.9 - Hypothyroidism, unspecified Status: Acute - Plan 72-year-old female admitted secondary to hypoglycemia with renal failure and respiratory failure Encephalopathy Impression: Unclear etiology. . Per EMR review, some hypercapnia. Head CT negative 05/14. Hypoglycemia and confusion on admission. No obvious recent electrolyte abnormalities; prior ammonia mildly increased (35 05/19). TSH elevated (50 recently) -repeat ABG - persistent mild hypercapnia, pH 7.47 -Receiving IV Levothyroxine per Endocrine -Neurology ff -Overall improvement, sedating medications discontinued Acute hypercapnic hypoxemic respiratory failure was placed on BiPAP. Probably Pickwickian syndrome Pulmonary Infiltrate Respiratory status continues to improve Continue supplementation with oxygen and follow clinically Pulmonology ff -BIPAP at night Acute renal failure Impression: Cr 1.5 Continue monitoring renal function Avoid nephrotoxins Lasix switched to 20 mg po today Sodium electrolyte disturbance- improved Patient has had problems with hypernatremia and hyponatremia Currently balance Monitor sodium levels UTI. Pseudomonas aeruginosa and E faecium -ID ff -S/P Cefepime- DC by ID 05/25 - S/P Zyvox stopped 05/23 -monitor CBC, UA, C/S -Discussed with ID 05/25 - repeat UA negative -Monitor mental status Acute diastolic CHF exacerbation Stabilized Lasix 20 mg daily A. fib RVR - rate controlled Cardiology following Continue metoprolol and Cardizem on Eliquis Hypothyroidism. Impression: TSH 50 05/23; s/p Levothyroxine 500mcg IV. TSH ~[address] Brown ff closely along with us - on synthroid replacement Diabetes mellitus type 2 Follow blood sugars Insulin sliding scale Diabetic diet Depression- emotionally interactive and feisty today Suicidal intent - Resolved. 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 Psychiatry reconsulted and ff Generalized pain Continue pain Management- limit pain meds Anemia of chronic disease Stabilized for now Follow CBC Cutaneous candidiasis. Course of Diflucan completed; continue Nystatin DVT prophylaxis Continue Eliquis Poor po intake- hold patient ate 75% this am - family now agress to PEG placmen- consult GI - patient state she does not want a PEG - discuss with her that her previous po intake was poor- I am eating will hold elqiuis- restart Discharge Planning: DC planning- will need SNF or ask CM to check on home situation or placement 06/01/18 Several calls placed to brii Miranda to discuss further d/c plans. Bibi is also evaluating pt and a possible contract with to assist. Aline is discussing matters with Jose Miguel she was provided height and weight to provide a bariatric bed. Original Note: 05/31/18 CM spoke to Armida Iniguez with [facility] at [phone] and she will come out next week and do a interview on the pt to complete a Level 2 PASSR for pt. Placed call to pts son Ruben Power proxy [phone] to let him know we have a possible accepting facility for discharge at [facility] as Rubens with facility came and did a onsite review with pts nurse and will need to verify with the son Ruben if they can disenroll pt from [employer] and change to medicare. Once Cares unit assess pt and does the level 2. Pt was Medicare on face sheet but when I asked insurance verification to run her insurance she came up as [employer]. will need to fax [phone] completed and the nurse has this to complete .Will need to send the PASSR and needs to sign new PASSR in CM office, progress notes for 1 week, medication list and legal sales representatives informed consent for level 2 must be signed by the Son and dated. Page 3 number 4 should be yes on PASSR and Legal sales representatives informed consent needs to be signed by the son.left mess for son to call back to discuss discharge plan to [facility]. [place] will look at pt again once level 2 has been completed. tt:rubens at [facility] and he does not see any reason why this pt would not be accepted once all above completed. CM to follow up on this monday. Chart copied and passr in CM office to be signed by Dr.Becky Calin LPN CM
[2018-06-02] MEDS: Montelukast 10 MG Tablet PO SCH (22:11)
[2018-06-03] MEDS: Levothyroxine 125 MCG Tablet PO SCH (05:54)
[2018-06-03] MEDS: dilTIAZem 60 MG Tablet PO SCH ×3 (05:54→22:54)
[2018-06-03] MEDS: Insulin NovoLOG Aspart Correctional Sugar Inj SQ SCH ×4 (09:20→22:54)
[2018-06-03] MEDS: Furosemide 20 MG Tablet PO SCH (09:21)
[2018-06-03] MEDS: Nystatin 100,000 UNITS/GM Powder 15 GM Bottle TOPICAL SCH ×2 (09:22→22:52)
[2018-06-03] MEDS: Metoprolol Tartrate 50 MG Tablet PO SCH ×2 (09:23→22:52)
[2018-06-03 10:28] LABS: Calcium 7.9 mg/dL (8.5-10.1); Carbon Dioxide 25.3 meq/L (21.0-32.0); Potassium 3.4 meq/L (3.5-5.1)
--- NOTE | 2018-06-03 13:09 | P.PN ---
Subjective Interval history: awake and alert, states "I want to get out of here" states our food is garbage no pain complains good po intake- confirmed with staff nurse and aide- she feeds herself Physical Exam Vital signs: Vital Signs 06/02/18 16:00 06/02/18 20:00 06/03/18 00:00 Temperature 98.2 F 97.8 F 98 F Pulse Rate 112 H 93 H 93 H Respiratory Rate 20 20 16 Blood Pressure 94/61 L 96/68 L 91/50 L Pulse Oximetry 97 97 97 06/03/18 04:00 06/03/18 08:00 06/03/18 12:26 Temperature 98.1 F 98.2 F Pulse Rate 89 99 H Respiratory Rate 22 18 Blood Pressure 98/62 L 94/53 L Pulse Oximetry 97 98 98 Intake & Output 06/02/18 06/03/18 06/03/18 18:59 06:59 18:59 Intake Total 480 / 480 Balance 480 / 480 Weight 153.9 kg Intake: Oral 480 / 480 Other: # Incontinent Voids 1 Date of Last Bowel Movement 06/02/18 06/03/18 # Bowel Movements 2 Narrative: heavy set awake alert, oriented to person and place , turendd a little emotional anicteric lungs- no rales irregular rhythm, rate 76 abdomen flabby soft extremities- no edema moves all spontaneously- - Urinary Catheter Management Indwelling Urethral Catheter Cath placed during this visit: no Reason for continuing: Not indwelling catheter Results - Labs CBC & Chem 7: 05/26/18 06:34 06/03/18 09:00 Laboratory Results - last 24 hr 06/02/18 06/02/18 06/03/18 16:26 22:12 07:52 Sodium Potassium Chloride Carbon Dioxide Anion Gap BUN Creatinine Estimated GFR POC Glucose 111 H 124 H 114 H Random Glucose Calcium 06/03/18 06/03/18 09:00 12:00 Sodium 141 Potassium 3.4 L Chloride 102 Carbon Dioxide 25.3 Anion Gap 14 BUN 24 H Creatinine 1.62 H Estimated GFR 31 L POC Glucose 136 H Random Glucose 90 Calcium 7.9 L Assessment and Plan - Assessment (1) Respiratory failure with hypoxia and hypercapnia Code(s): J96.91 - Respiratory failure, unspecified with hypoxia; J96.92 - Respiratory failure, unspecified with hypercapnia Status: Acute (2) BETTIE and COPD overlap syndrome Code(s): G47.33 - Obstructive sleep apnea (adult) (pediatric); J44.9 - Chronic obstructive pulmonary disease, unspecified Status: Acute (3) Hypothyroidism Code(s): E03.9 - Hypothyroidism, unspecified Status: Acute - Plan - Plan 72-year-old female admitted secondary to hypoglycemia with renal failure and respiratory failure Encephalopathy Improved. Emotinally labile Impression: Unclear etiology. . Per EMR review, some hypercapnia. Head CT negative 05/14. Hypoglycemia and confusion on admission. No obvious recent electrolyte abnormalities; prior ammonia mildly increased (35 05/19). TSH elevated (50 recently) -repeat ABG - persistent mild hypercapnia, pH 7.47 -on synthroid 250 mcg daily -Neurology ff -Overall improvement, sedating medications discontinued Acute hypercapnic hypoxemic respiratory failure was placed on BiPAP. Probably Pickwickian syndrome Pulmonary Infiltrate Respiratory status continues to improve Continue supplementation with oxygen and follow clinically Pulmonology ff -BIPAP at night Acute renal failure Impression: Cr 1.5 Continue monitoring renal function Avoid nephrotoxins Lasix switched to 20 mg po daily Sodium electrolyte disturbance- improved Patient has had problems with hypernatremia and hyponatremia Currently balance Monitor sodium levels Hypokalemia- - on Lasix 20 mg daily - restart Potassium at 25 meq po daily- monitor closely- (tendency for hyperkalemia - with CKI) - previously hypokalemia- on replacement bid- K went up to 5.6 then DC - BMP in am UTI. Pseudomonas aeruginosa and E faecium - S.P Cefepime course 05/25 -S/P zyvox Zyvox stopped 05/23 -monitor CBC, UA, C/S -Discussed with ID 05/25 - ;repeat culture negative -Monitor mental status Acute diastolic CHF exacerbation Stabilized Lasix 20 mg daily A. fib RVR - rate controlled Cardiology following Continue metoprolol and Cardizem on Eliquis Hypothyroidism. Impression: TSH 50 05/23; s/p Levothyroxine 500mcg IV. TSH ~[address] Brown ff closely along with us - on synthroid replacement 250 mcg po daily Diabetes mellitus type 2 Follow blood sugars Insulin sliding scale Diabetic diet Depression- emotionally labile Suicidal intent - Resolved. 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 Psychiatry reconsulted and ff Generalized pain Continue pain Management- limit pain meds Anemia of chronic disease Stabilized for now Follow CBC Cutaneous candidiasis. Course of Diflucan completed; continue Nystatin DVT prophylaxis Continue Eliquis 06/02 po intake- erratic po - depending on emotional state = today ate very well - patient state she does not want a PEG - discuss with her that her previous po intake was poor- I am eating Discharge Planning: DC planning- will need SNF or ask CM to check on home situation or placement
[2018-06-03] MEDS: Potassium Chloride 25 MEQ Effervescent Tablet PO SCH (13:55)
--- NOTE | 2018-06-03 15:54 | P.PN ---
Subjective Interval history: ALERT LYING IN BED NO SOB Physical Exam Vital signs: Vital Signs 06/02/18 16:00 06/02/18 20:00 06/03/18 00:00 Temperature 98.2 F 97.8 F 98 F Pulse Rate 112 H 93 H 93 H Respiratory Rate 20 20 16 Blood Pressure 94/61 L 96/68 L 91/50 L Pulse Oximetry 97 97 97 06/03/18 04:00 06/03/18 08:00 06/03/18 12:26 Temperature 98.1 F 98.2 F Pulse Rate 89 96 H Respiratory Rate 22 18 Blood Pressure 98/62 L 94/53 L Pulse Oximetry 97 98 98 06/03/18 13:00 Temperature Pulse Rate 74 Respiratory Rate Blood Pressure Pulse Oximetry Intake & Output 06/02/18 06/03/18 06/03/18 18:59 06:59 18:59 Intake Total 480 / 480 Balance 480 / 480 Weight 153.9 kg Intake: Oral 480 / 480 Other: # Incontinent Voids 1 Date of Last Bowel Movement 06/02/18 06/03/18 06/03/18 # Bowel Movements 2 Narrative: heavy set awake alert, oriented to person and place , turendd a little emotional anicteric lungs- no rales irregular rhythm, rate 76 abdomen flabby soft extremities- no edema moves all spontaneously- - Urinary Catheter Management Indwelling Urethral Catheter Cath placed during this visit: no Reason for continuing: Not indwelling catheter Results - Labs CBC & Chem 7: 05/26/18 06:34 06/03/18 09:00 Laboratory Results - last 24 hr 06/02/18 06/02/18 06/03/18 16:26 22:12 07:52 Sodium Potassium Chloride Carbon Dioxide Anion Gap BUN Creatinine Estimated GFR POC Glucose 111 H 124 H 114 H Random Glucose Calcium 06/03/18 06/03/18 09:00 12:00 Sodium 141 Potassium 3.4 L Chloride 102 Carbon Dioxide 25.3 Anion Gap 14 BUN 24 H Creatinine 1.62 H Estimated GFR 31 L POC Glucose 136 H Random Glucose 90 Calcium 7.9 L Assessment and Plan - Assessment (1) Respiratory failure with hypoxia and hypercapnia Code(s): J96.91 - Respiratory failure, unspecified with hypoxia; J96.92 - Respiratory failure, unspecified with hypercapnia Status: Acute (2) BETTIE and COPD overlap syndrome Code(s): G47.33 - Obstructive sleep apnea (adult) (pediatric); J44.9 - Chronic obstructive pulmonary disease, unspecified Status: Acute - Plan RESPIRATORY FAILURE BETTIE MORBID OBESITY PLAN loose wt O2 NEEDED BIPAP SLEEP PULM TOILET
[2018-06-03] MEDS: Montelukast 10 MG Tablet PO SCH (22:52)
[2018-06-04] MEDS: Acetaminophen 325 MG Tablet PO PRN ×2 (03:59→10:03)
[2018-06-04] MEDS: Levothyroxine 125 MCG Tablet PO SCH (04:00)
[2018-06-04] MEDS: dilTIAZem 60 MG Tablet PO SCH ×3 (06:24→21:48)
[2018-06-04] MEDS: Insulin NovoLOG Aspart Correctional Sugar Inj SQ SCH ×4 (09:59→21:50)
[2018-06-04] MEDS: Metoprolol Tartrate 50 MG Tablet PO SCH ×2 (10:02→21:48)
[2018-06-04] MEDS: Potassium Chloride 25 MEQ Effervescent Tablet PO SCH (10:02)
[2018-06-04] MEDS: Furosemide 20 MG Tablet PO SCH (10:02)
[2018-06-04] MEDS: Nystatin 100,000 UNITS/GM Powder 15 GM Bottle TOPICAL SCH ×2 (10:03→21:50)
--- NOTE | 2018-06-04 11:12 | P.PNIM ---
Subjective Interval history: 06-03 awake and alert, states "I want to get out of here" states our food is garbage no pain complains good po intake- confirmed with staff nurse and aide- she feeds herself 06-04 will check labs NEEDS PT AND OT WILL NEED PLACEMENT DUE TO POOR MOBILITY DW RN AND PT AND CM Physical Exam Vital signs: Vital Signs 06/03/18 12:00 06/03/18 12:26 06/03/18 13:00 Temperature 98.2 F Pulse Rate 99 H 74 Respiratory Rate 18 Blood Pressure 114/57 L Pulse Oximetry 99 98 06/03/18 16:00 06/03/18 19:40 06/03/18 20:00 Temperature 98.4 F 97.6 F Pulse Rate 99 H 127 H 109 H Respiratory Rate 18 20 Blood Pressure 92/48 L 111/56 L Pulse Oximetry 99 97 06/03/18 23:40 06/04/18 00:00 06/04/18 08:00 Temperature 97.8 F 97.0 F L Pulse Rate 109 H 104 H 105 H Respiratory Rate 20 18 Blood Pressure 102/55 L 98/51 L Pulse Oximetry 90 L 99 Intake & Output 06/03/18 06/04/18 06/04/18 18:59 06:59 18:59 Intake Total 240 / 240 Output Total 300 / 300 Balance -60 / -60 Intake: Oral 240 / 240 Output: Urine 300 / 300 Other: # Voids 2 Date of Last Bowel Movement 06/03/18 06/04/18 # Bowel Movements 1 Narrative: GENERAL: Awake alert and oriented 2 talkative not so cooperative --does what she wants to do does not always follow commands SKIN: Warm and dry. HEAD: Atraumatic. Normocephalic. EYES: Pupils equal and round. No scleral icterus. No injection or drainage. EOMI ENT: No nasal bleeding or discharge. Mucous membranes pink and moist. Tongue is midline NECK: Trachea midline. No JVD. Supple CARDIOVASCULAR: IRRegular rate and rhythm. S1-S2 no S3 or S4 RESPIRATORY: No accessory muscle use. Clear to auscultation. Breath sounds equal bilaterally. GASTROINTESTINAL: Abdomen soft, non-tender, nondistended. Hepatic and splenic margins not palpable. Morbid obesity MUSCULOSKELETAL: Extremities without clubbing, cyanosis, or edema. No obvious deformities. NEUROLOGICAL: Awake and alert. No obvious cranial nerve deficits. Motor grossly within normal limits. 4 out of 5 muscle strength in the arms and legs. Normal speech. Moves all 4 extremities PSYCHIATRIC: INAppropriate mood and affect; insight and judgment ABnormal. - Urinary Catheter Management Indwelling Urethral Catheter Cath placed during this visit: no Reason for continuing: Not indwelling catheter Results - Labs CBC & Chem 7: 05/26/18 06:34 06/03/18 09:00 Laboratory Results - last 24 hr 06/03/18 06/03/18 06/03/18 12:00 17:44 22:53 POC Glucose 136 H 110 137 H 06/04/18 08:31 POC Glucose 112 H Assessment and Plan - Assessment (1) Respiratory failure with hypoxia and hypercapnia Code(s): J96.91 - Respiratory failure, unspecified with hypoxia; J96.92 - Respiratory failure, unspecified with hypercapnia Status: Acute (2) BETTIE and COPD overlap syndrome Code(s): G47.33 - Obstructive sleep apnea (adult) (pediatric); J44.9 - Chronic obstructive pulmonary disease, unspecified Status: Acute (3) Hypothyroidism Code(s): E03.9 - Hypothyroidism, unspecified Status: Acute - Plan 72-year-old female admitted secondary to hypoglycemia with renal failure and respiratory failure Encephalopathy Improved. Emotinally labile Impression: Unclear etiology. . Per EMR review, some hypercapnia. Head CT negative 05/14. Hypoglycemia and confusion on admission. No obvious recent electrolyte abnormalities; prior ammonia mildly increased (35 05/19). TSH elevated (50 recently) -repeat ABG - persistent mild hypercapnia, pH 7.47 -on Synthroid 250 mcg daily -Neurology ff -Overall improvement, sedating medications discontinued Acute hypercapnic hypoxemic respiratory failure was placed on BiPAP. Probably Pickwickian syndrome Pulmonary Infiltrate Respiratory status continues to improve Continue supplementation with oxygen and follow clinically Pulmonology ff -BIPAP at night Acute renal failure Impression: Cr 1.5 Continue monitoring renal function Avoid nephrotoxins Lasix switched to 20 mg po daily Sodium electrolyte disturbance- improved Patient has had problems with hypernatremia and hyponatremia Currently balance Monitor sodium levels Hypokalemia- - on Lasix 20 mg daily - restart Potassium at 25 meq po daily- monitor closely- (tendency for hyperkalemia - with CKI) - previously hypokalemia- on replacement bid- K went up to 5.6 then DC - BMP in am UTI. Pseudomonas aeruginosa and E faecium - S.P Cefepime course 05/25 -S/P Zyvox-- Zyvox stopped 05/23 -monitor CBC, UA, C/S -Discussed with ID 05/25 - ;repeat culture negative -Monitor mental status Acute diastolic CHF exacerbation Stabilized Lasix 20 mg daily A. fib RVR - rate controlled Cardiology following Continue metoprolol and Cardizem on Eliquis Hypothyroidism. Impression: TSH 50 05/23; s/p Levothyroxine 500mcg IV. TSH ~[address] Brown ff closely along with us - on Synthroid replacement 250 mcg po daily Diabetes mellitus type 2 Follow blood sugars Insulin sliding scale Diabetic diet Depression- emotionally labile Suicidal intent - Resolved. 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 Psychiatry reconsulted and ff Generalized pain Continue pain Management- limit pain meds Anemia of chronic disease Stabilized for now Follow CBC Cutaneous candidiasis. Course of Diflucan completed; continue Nystatin DVT prophylaxis Continue Eliquis 06/02 po intake- erratic po - depending on emotional state = today ate very well - patient state she does not want a PEG - discuss with her that her previous po intake was poor- I am eating Discharge Planning: DC planning- will need SNF or ask CM to check on home situation or placement Code Status: FULL CODE Discussed Condition With: RN AND PT AND CM Discharge Planning: SNF VS [facility]
--- NOTE | 2018-06-04 16:16 | P.DIET ---
Nutritional Evaluation Type of nutrition evaluation: follow-up Nutrition consult regarding: Tube Feeding (Previously on TFs) Nutrition screening: Pressure Injury Subjective Barriers to Nutrition: Refuses to eat at times Subjective Comments: Pt states she hates the hospital food. Her PO intake is very sporadic and inconsistent. Objective - Diagnosis Profound Hypoglycemia - Objective % IBW: 251 (XNW=[id number]#) Body Weight Used for Calculations: IBW (61.4 kg) Energy Needs - Lower Range (kCal/kg): 28 Energy Needs - Upper Range (kCal/kg): 32 Lower Limit kCal/kg (kCals): 1,719 Upper Limit kCal/kg (kCals): 1,965 Lower Limit Protein Factor (Grams per Kg): 1.2 Upper Limit Protein Factor (Grams per Kg): 1.5 Lower Protein Needs (Protein): 74 Upper Protein Needs (Protein): 92 Dietitian Reviewed in Medical Record: Current diet, Curent medications, Intake & Output, Labs, Medical history Diet Order: Mechanical Soft, 1999 ADA Wound Care Note: 05/21 WOCN note reviewed, no pressure injuries. Objective Comments: +MRSA Meds: Lasix, Synthroid LBM 06/04 Feeding - Current PO Supplement Current Supplement: Glucerna Shake Current Frequency of Supplement: Three times a day Current kCals Provided by Supplement: 220 Current Protein Provided by Supplement: 10 Assessment Assessment: Pt is now on a 1999ADA Mechanical Soft diet. She's getting Glucerna Shakes TID. Pt's PO intake is sporadic and she states she hates the hospital food. Most of the time eats ~50% of her meals. Picks for what she likes according to pt. Family declined PEG tube last week. Continue current POC. Consult RD if needed. Recommendations: 1. Continue current POC. 2. Pt supposedly does not like hospital food. 3. Consult RD if needed.
--- NOTE | 2018-06-04 17:14 | P.PN ---
Subjective Interval history: ALERT AFEBRILE NO DISTRESS Physical Exam Vital signs: Vital Signs 06/03/18 19:40 06/03/18 20:00 06/03/18 23:40 Temperature 97.6 F Pulse Rate 127 H 109 H 109 H Respiratory Rate 20 Blood Pressure 111/56 L Pulse Oximetry 97 06/04/18 00:00 06/04/18 08:00 06/04/18 12:00 Temperature 97.8 F 97.0 F L 97.2 F L Pulse Rate 104 H 105 H 88 Respiratory Rate 20 18 18 Blood Pressure 102/55 L 98/51 L 100/50 L Pulse Oximetry 90 L 99 98 Intake & Output 06/03/18 06/04/18 06/04/18 18:59 06:59 18:59 Intake Total 240 / 240 Output Total 300 / 300 Balance -60 / -60 Intake: Oral 240 / 240 Output: Urine 300 / 300 Other: # Voids 2 Date of Last Bowel Movement 06/03/18 06/04/18 # Bowel Movements 1 Narrative: GENERAL: Awake alert and oriented 2 talkative not so cooperative --does what she wants to do does not always follow commands SKIN: Warm and dry. HEAD: Atraumatic. Normocephalic. EYES: Pupils equal and round. No scleral icterus. No injection or drainage. EOMI ENT: No nasal bleeding or discharge. Mucous membranes pink and moist. Tongue is midline NECK: Trachea midline. No JVD. Supple CARDIOVASCULAR: IRRegular rate and rhythm. S1-S2 no S3 or S4 RESPIRATORY: No accessory muscle use. Clear to auscultation. Breath sounds equal bilaterally. GASTROINTESTINAL: Abdomen soft, non-tender, nondistended. Hepatic and splenic margins not palpable. Morbid obesity MUSCULOSKELETAL: Extremities without clubbing, cyanosis, or edema. No obvious deformities. NEUROLOGICAL: Awake and alert. No obvious cranial nerve deficits. Motor grossly within normal limits. 4 out of 5 muscle strength in the arms and legs. Normal speech. Moves all 4 extremities PSYCHIATRIC: INAppropriate mood and affect; insight and judgment ABnormal. - Urinary Catheter Management Indwelling Urethral Catheter Cath placed during this visit: no Reason for continuing: Not indwelling catheter Results - Labs CBC & Chem 7: 05/26/18 06:34 06/03/18 09:00 Laboratory Results - last 24 hr 06/03/18 06/03/18 06/04/18 17:44 22:53 08:31 POC Glucose 110 137 H 112 H 06/04/18 12:30 POC Glucose 115 H Assessment and Plan - Assessment (1) Respiratory failure with hypoxia and hypercapnia Code(s): J96.91 - Respiratory failure, unspecified with hypoxia; J96.92 - Respiratory failure, unspecified with hypercapnia Status: Acute (2) BETTIE and COPD overlap syndrome Code(s): G47.33 - Obstructive sleep apnea (adult) (pediatric); J44.9 - Chronic obstructive pulmonary disease, unspecified Status: Acute - Plan RESPIRATORY FAILURE BETTIE MORBID OBESITY PLAN loose wt O2 NEEDED BIPAP SLEEP PULM TOILET
[2018-06-04] MEDS: Montelukast 10 MG Tablet PO SCH (21:49)
[2018-06-05] MEDS: dilTIAZem 60 MG Tablet PO SCH ×3 (05:57→22:10)
[2018-06-05] MEDS: Levothyroxine 125 MCG Tablet PO SCH (05:57)
[2018-06-05] MEDS: Potassium Chloride 25 MEQ Effervescent Tablet PO SCH (08:58)
[2018-06-05] MEDS: Insulin NovoLOG Aspart Correctional Sugar Inj SQ SCH ×4 (08:58→22:12)
[2018-06-05] MEDS: Furosemide 20 MG Tablet PO SCH (09:04)
[2018-06-05] MEDS: Metoprolol Tartrate 50 MG Tablet PO SCH ×2 (09:05→22:11)
[2018-06-05] MEDS: Nystatin 100,000 UNITS/GM Powder 15 GM Bottle TOPICAL SCH ×2 (09:05→22:12)
[2018-06-05] MEDS: Acetaminophen 325 MG Tablet PO PRN (09:05)
--- NOTE | 2018-06-05 11:34 | P.PNIM ---
Subjective Interval history: 06-03 awake and alert, states "I want to get out of here" states our food is garbage no pain complains good po intake- confirmed with staff nurse and aide- she feeds herself 06-04 will check labs NEEDS PT AND OT WILL NEED PLACEMENT DUE TO POOR MOBILITY DW RN AND PT AND CM 06-05 patient states she WANTS TO GO HOME WITH SON SON WANTS TO TAKE PATIENT STATES SHE HAS HOSPITAL BED AT HOME AND OXYGEN AND NEBULIZER WILL DW CM HOPEFULLY DC TO HOME WILL NEED HHC ETC Physical Exam Vital signs: Vital Signs 06/04/18 12:00 06/04/18 16:00 06/04/18 17:31 Temperature 97.2 F L 97.5 F L Pulse Rate 88 87 Respiratory Rate 18 18 Blood Pressure 100/50 L 99/56 L Pulse Oximetry 98 100 98 06/04/18 20:00 06/04/18 20:33 06/05/18 00:00 Temperature 97.9 F 97.5 F L Pulse Rate 80 99 H 91 H Respiratory Rate 20 19 Blood Pressure 107/65 94/50 L Pulse Oximetry 94 L 97 06/05/18 01:28 06/05/18 03:23 06/05/18 04:00 Temperature 97.9 F Pulse Rate 87 74 100 H Respiratory Rate 18 Blood Pressure 103/55 L Pulse Oximetry 99 06/05/18 08:00 Temperature 97.0 F L Pulse Rate 114 H Respiratory Rate 22 Blood Pressure 106/61 Pulse Oximetry 95 Intake & Output 06/04/18 06/05/18 06/05/18 18:59 06:59 18:59 Intake Total 480 / 480 Output Total 250 / 250 250 / 250 Balance 230 / 230 -250 / -250 Weight 154.5 kg Intake: Oral 480 / 480 Output: Urine 250 / 250 250 / 250 Other: # Voids 1 2 # Bowel Movements 1 1 Narrative: GENERAL: Awake alert and oriented 3 talkative --does what she wants to do does not always follow commands SKIN: Warm and dry. HEAD: Atraumatic. Normocephalic. EYES: Pupils equal and round. No scleral icterus. No injection or drainage. EOMI ENT: No nasal bleeding or discharge. Mucous membranes pink and moist. Tongue is midline NECK: Trachea midline. No JVD. Supple CARDIOVASCULAR: IRRegular rate and rhythm. S1-S2 no S3 or S4 RESPIRATORY: No accessory muscle use. Clear to auscultation. Breath sounds equal bilaterally. GASTROINTESTINAL: Abdomen soft, non-tender, nondistended. Hepatic and splenic margins not palpable. Morbid obesity MUSCULOSKELETAL: Extremities without clubbing, cyanosis, or edema. No obvious deformities. NEUROLOGICAL: Awake and alert. No obvious cranial nerve deficits. Motor grossly within normal limits. 4 out of 5 muscle strength in the arms and legs. Normal speech. Moves all 4 extremities PSYCHIATRIC: INAppropriate mood and affect; insight and judgment ABnormal. - Urinary Catheter Management Indwelling Urethral Catheter Cath placed during this visit: no Reason for continuing: Not indwelling catheter Results - Labs CBC & Chem 7: 05/26/18 06:34 06/03/18 09:00 Laboratory Results - last 24 hr 06/04/18 06/04/18 06/05/18 12:30 19:50 07:31 POC Glucose 115 H 118 H 123 H - Procedures NONE Assessment and Plan - Assessment (1) Respiratory failure with hypoxia and hypercapnia Code(s): J96.91 - Respiratory failure, unspecified with hypoxia; J96.92 - Respiratory failure, unspecified with hypercapnia Status: Acute (2) BETTIE and COPD overlap syndrome Code(s): G47.33 - Obstructive sleep apnea (adult) (pediatric); J44.9 - Chronic obstructive pulmonary disease, unspecified Status: Acute (3) Hypothyroidism Code(s): E03.9 - Hypothyroidism, unspecified Status: Acute - Plan 72-year-old female admitted secondary to hypoglycemia with renal failure and respiratory failure Encephalopathy Improved. Emotinally labile Impression: Unclear etiology. . Per EMR review, some hypercapnia. Head CT negative 05/14. Hypoglycemia and confusion on admission. No obvious recent electrolyte abnormalities; prior ammonia mildly increased (35 05/19). TSH elevated (50 recently) -repeat ABG - persistent mild hypercapnia, pH 7.47 -on Synthroid 250 mcg daily -Neurology ff -Overall improvement, sedating medications discontinued Acute hypercapnic hypoxemic respiratory failure was placed on BiPAP. Probably Pickwickian syndrome Pulmonary Infiltrate Respiratory status continues to improve Continue supplementation with oxygen and follow clinically Pulmonology ff -BIPAP at night Acute renal failure Impression: Cr 1.5 Continue monitoring renal function Avoid nephrotoxins Lasix switched to 20 mg po daily Sodium electrolyte disturbance- improved Patient has had problems with hypernatremia and hyponatremia Currently balance Monitor sodium levels Hypokalemia- - on Lasix 20 mg daily - restart Potassium at 25 meq po daily- monitor closely- (tendency for hyperkalemia - with CKI) - previously hypokalemia- on replacement bid- K went up to 5.6 then DC - BMP in am UTI. Pseudomonas aeruginosa and E faecium - S.P Cefepime course 05/25 -S/P Zyvox-- Zyvox stopped 05/23 -monitor CBC, UA, C/S -Discussed with ID 05/25 - ;repeat culture negative -Monitor mental status Acute diastolic CHF exacerbation Stabilized Lasix 20 mg daily A. fib RVR - rate controlled Cardiology following Continue metoprolol and Cardizem on Eliquis Hypothyroidism. Impression: TSH 50 05/23; s/p Levothyroxine 500mcg IV. TSH ~[address] Brown ff closely along with us - on Synthroid replacement 250 mcg po daily Diabetes mellitus type 2 Follow blood sugars Insulin sliding scale Diabetic diet Depression- emotionally labile Suicidal intent - Resolved. 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 Psychiatry reconsulted and ff Generalized pain Continue pain Management- limit pain meds Anemia of chronic disease Stabilized for now Follow CBC Cutaneous candidiasis. Course of Diflucan completed; continue Nystatin DVT prophylaxis Continue Eliquis 06/02 po intake- erratic po - depending on emotional state = today ate very well - patient state she does not want a PEG - discuss with her that her previous po intake was poor- I am eating Discharge Planning: DC planning- will need SNF or ask CM to check on home situation or placement Code Status: FULL CODE Discussed Condition With: RN AND PT AND CM Discharge Planning: HOME WITH [facility]
--- NOTE | 2018-06-05 15:07 | P.DS ---
Date of admission: 04/17/18 17:15 Primary care physician: UNKNOWN Attending physician on discharge: Issa Goldman Anticipated date of discharge: 06/06/18 Brief History from admission: Ms. Power is a morbidly obese 72 y/o female with a history of hypothyroidism, atrial fibrillation with rapid ventricular response, hypertension, GERD, depression, arthritis, complex atypical endometrial hyperplasia, and remote history of asthma who presented to the emergency room and [place] after being found unresponsive by family members at home. The patient's glucose was reportedly 13 on EMS arrival. Patient was transferred to [facility] under the care of the hospitalist service for medical management. The patient is seen in [facility]. She is shouting and moaning in pain. She is reporting generalized pain all over. I tell her that she is being admitted because her blood sugar was very low and she says "I know". I asked her if she took her diabetes medicine today and she reports that she took "too many" because she was "trying to kill herself". She then says "I just want to ". She is clearly anxious and pursed lip breathing. Chest x-ray and [place] shows mild basilar airspace disease with small pleural effusions. Head CT showed mild generalized atrophy and mild periventricular white matter low attenuation characteristic of chronic microvascular ischemia. Examination was limited by motion artifact. I have received a report that the patient was on hospice care at home and that her DNR was revoked by family members. The patient is very difficult to get history from as she is uncooperative, shouting, moaning, and difficult to understand at times. When I asked her if she was a hospice patient, she clearly says now she was not. DS: Diagnosis - Discharge Diagnosis (1) Respiratory failure with hypoxia and hypercapnia Status: Acute (2) BETTIE and COPD overlap syndrome Status: Chronic (3) Hypothyroidism Status: Chronic (4) Increased nutritional needs Status: Chronic (5) Delirium Status: Acute DS: Medications - Discharge Medications Prescriptions: apixaban [Eliquis] 5 mg PO BID #60 tab bupropion HCl [Wellbutrin SR] 150 mg PO BID #60 tab buspirone 5 mg PO BID #60 tab calcium carbonate 500 mg CHEW Q2H PRN #60 tab PRN Reason: Dyspepsia cholecalciferol (vitamin D3) 2,000 unit PO DAILY #60 tab diltiazem HCl 60 mg PO Q8HR #90 tab diphenhydramine HCl 25 mg PO Q4H PRN #100 cap PRN Reason: See Label Comments furosemide 20 mg PO DAILY #30 tab glipizide 5 mg PO QAM #30 tab glipizide 7.5 mg PO HS #45 tab ipratropium-albuterol 1 amp NEB Q2HR NEB PRN #180 amp PRN Reason: SHORT OF BREATH levothyroxine [Synthroid] 250 mcg PO DAILY@0500 #60 tab metoprolol tartrate 50 mg PO BID #60 tab montelukast 10 mg PO HS #30 tab nystatin [Nystop] 1 applicatio TOPICAL Q12H #120 g omeprazole 40 mg PO DAILY #30 cap potassium bicarb and chloride 25 meq PO DAILY #30 ea quetiapine 50 mg PO HS #30 tab DS: Summary Hospital Course: Ms. Power is a morbidly obese 72 y/o female with a history of hypothyroidism, atrial fibrillation with rapid ventricular response, hypertension, GERD, depression, arthritis, complex atypical endometrial hyperplasia, and remote history of asthma who presented to the emergency room and [place] after being found unresponsive by family members at home. The patient's glucose was reportedly 13 on EMS arrival. Patient was transferred to [facility] under the care of the hospitalist service for medical management. The patient is seen in [facility]. She is shouting and moaning in pain. She is reporting generalized pain all over. I tell her that she is being admitted because her blood sugar was very low and she says "I know". I asked her if she took her diabetes medicine today and she reports that she took "too many" because she was "trying to kill herself". She then says "I just want to ". She is clearly anxious and pursed lip breathing. Chest x-ray and [place] shows mild basilar airspace disease with small pleural effusions. Head CT showed mild generalized atrophy and mild periventricular white matter low attenuation characteristic of chronic microvascular ischemia. Examination was limited by motion artifact. I have received a report that the patient was on hospice care at home and that her DNR was revoked by family members. The patient is very difficult to get history from as she is uncooperative, shouting, moaning, and difficult to understand at times. When I asked her if she was a hospice patient, she clearly says now she was not. PATIENT WAS IN ICU THEN TRANSFERRED TO FLOOR NOW WANTS TO GO HOME PLEASE SEE CHARTS FOR ANY OTHER DETAILS 72-year-old female admitted secondary to hypoglycemia with renal failure and respiratory failure Encephalopathy Improved. Emotinally labile Impression: Unclear etiology. . Per EMR review, some hypercapnia. Head CT negative 05/14. Hypoglycemia and confusion on admission. No obvious recent electrolyte abnormalities; prior ammonia mildly increased (35 05/19). TSH elevated (50 recently) -repeat ABG - persistent mild hypercapnia, pH 7.47 -on Synthroid 250 mcg daily -Neurology ff -Overall improvement, sedating medications discontinued Acute hypercapnic hypoxemic respiratory failure was placed on BiPAP. Probably Pickwickian syndrome Pulmonary Infiltrate Respiratory status continues to improve Continue supplementation with oxygen and follow clinically Pulmonology ff -BIPAP at night Acute renal failure Impression: Cr 1.5 Continue monitoring renal function Avoid nephrotoxins Lasix switched to 20 mg po daily Sodium electrolyte disturbance- improved Patient has had problems with hypernatremia and hyponatremia Currently balance Monitor sodium levels Hypokalemia- - on Lasix 20 mg daily - restart Potassium at 25 meq po daily- monitor closely- (tendency for hyperkalemia - with CKI) - previously hypokalemia- on replacement bid- K went up to 5.6 then DC - BMP in am UTI. Pseudomonas aeruginosa and E faecium - S.P Cefepime course 05/25 -S/P Zyvox-- Zyvox stopped 05/23 -monitor CBC, UA, C/S -Discussed with ID 05/25 - ;repeat culture negative -Monitor mental status Acute diastolic CHF exacerbation Stabilized Lasix 20 mg daily A. fib RVR - rate controlled Cardiology following Continue metoprolol and Cardizem on Eliquis Hypothyroidism. Impression: TSH 50 05/23; s/p Levothyroxine 500mcg IV. TSH ~[address] Brown ff closely along with us - on Synthroid replacement 250 mcg po daily Diabetes mellitus type 2 Follow blood sugars Insulin sliding scale Diabetic diet Depression- emotionally labile Suicidal intent - Resolved. 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 Psychiatry reconsulted and ff Generalized pain Continue pain Management- limit pain meds Anemia of chronic disease Stabilized for now Follow CBC Cutaneous candidiasis. Course of Diflucan completed; continue Nystatin DVT prophylaxis Continue Eliquis - Time Spent with Patient Total time spent providing and/or coordinating discharge services: Greater than 30 minutes Exam Vital signs: Vital Signs 06/04/18 16:00 06/04/18 17:31 06/04/18 20:00 Temperature 97.5 F L 97.9 F Pulse Rate 87 80 Respiratory Rate 18 20 Blood Pressure 99/56 L 107/65 Pulse Oximetry 100 98 94 L 06/04/18 20:33 06/05/18 00:00 06/05/18 01:28 Temperature 97.5 F L Pulse Rate 99 H 91 H 87 Respiratory Rate 19 Blood Pressure 94/50 L Pulse Oximetry 97 06/05/18 03:23 06/05/18 04:00 06/05/18 08:00 Temperature 97.9 F 97.0 F L Pulse Rate 74 100 H 114 H Respiratory Rate 18 22 Blood Pressure 103/55 L 106/61 Pulse Oximetry 99 95 06/05/18 11:48 06/05/18 12:00 Temperature 97.4 F L Pulse Rate 103 H Respiratory Rate 21 Blood Pressure 112/60 Pulse Oximetry 95 94 L Intake & Output 06/04/18 06/05/18 06/05/18 18:59 06:59 18:59 Intake Total 480 / 480 Output Total 250 / 250 250 / 250 Balance 230 / 230 -250 / -250 Weight 154.5 kg Intake: Oral 480 / 480 Output: Urine 250 / 250 250 / 250 Other: # Voids 1 2 # Bowel Movements 1 1 Narrative: GENERAL: Awake alert and oriented 3 talkative --does what she wants to do does not always follow commands SKIN: Warm and dry. HEAD: Atraumatic. Normocephalic. EYES: Pupils equal and round. No scleral icterus. No injection or drainage. EOMI ENT: No nasal bleeding or discharge. Mucous membranes pink and moist. Tongue is midline NECK: Trachea midline. No JVD. Supple CARDIOVASCULAR: IRRegular rate and rhythm. S1-S2 no S3 or S4 RESPIRATORY: No accessory muscle use. Clear to auscultation. Breath sounds equal bilaterally. GASTROINTESTINAL: Abdomen soft, non-tender, nondistended. Hepatic and splenic margins not palpable. Morbid obesity MUSCULOSKELETAL: Extremities without clubbing, cyanosis, or edema. No obvious deformities. NEUROLOGICAL: Awake and alert. No obvious cranial nerve deficits. Motor grossly within normal limits. 4 out of 5 muscle strength in the arms and legs. Normal speech. Moves all 4 extremities PSYCHIATRIC: INAppropriate mood and affect; insight and judgment ABnormal. Results Procedures completed during hospitalization: NONE Labs on day of discharge: Labs from last 24 hours 06/05/18 06/04/18 07:31 19:50 POC Glucose 123 H 118 H - Impressions ITS Impressions Chest X-Ray 05/25/18 00:00 CONCLUSION: Hazy bilateral pleural-parenchymal opacities, likely reflecting alveolar disease and layering effusion. Slight improvement from prior. Discharge Plan - Discharge Disposition Patient Disposition: /Home Health Service - Discharge Condition Condition: Fair - Discharge Order Discharge Orders: Discharge Order (Routine); Ordered 06/05/18 Ordered By: Issa Goldman - Discharge Details Anticipated Discharge Date: 06/06/18 - Physicians Team Primary Care Provider: UNKNOWN, Attending Provider: Issa Goldman Other Providers: Armand Sharpe MD ; Yeison Huffman MD ; Rashad Lozoya MD ; Hazel Hoskins MD ; Vic Liu MD ; Gm Worrell MD ; Javier Mac MD ; Donavan Perez MD ; [facility],Agency ; [facility] ; [facility] ; [facility],Agency ; Armand Price MD ; Stoney Thorne MD ; Jonny Fuller ; Lea Fontenot MD - Rxs /Orders / Referrals /Forms Prescriptions: New apixaban [Eliquis] 5 mg Tablet 5 mg PO BID Qty: 60 RF: 0 bupropion HCl [Wellbutrin SR] 150 mg Tablet Extended Release 12 Hr 150 mg PO BID Qty: 60 RF: 0 buspirone 5 mg Tablet 5 mg PO BID Qty: 60 RF: 0 calcium carbonate 200 mg calcium (500 mg) Tablet,Chewable 500 mg CHEW Q2H PRN (Reason: Dyspepsia) Qty: 60 RF: 0 diltiazem HCl 60 mg Tablet 60 mg PO Q8HR Qty: 90 RF: 0 diphenhydramine HCl 25 mg Capsule 25 mg PO Q4H PRN (Reason: See Label Comments) Qty: 100 RF: 0 furosemide 20 mg Tablet 20 mg PO DAILY Qty: 30 RF: 0 ipratropium-albuterol 0.5 mg-3 mg(2.5 mg base)/3 mL Solution For Nebulization 1 amp NEB Q2HR NEB PRN (Reason: SHORT OF BREATH) Qty: 180 RF: 0 levothyroxine [Synthroid] 125 mcg Tablet 250 mcg PO DAILY@0500 Qty: 60 RF: 0 metoprolol tartrate 50 mg Tablet 50 mg PO BID Qty: 60 RF: 0 nystatin [Nystop] 100,000 unit/gram Powder 1 applicatio Topical Q12H Qty: 120 RF: 0 potassium bicarb and chloride 25 mEq Tablet, Effervescent 25 meq PO DAILY Qty: 30 RF: 0 Continue cholecalciferol (vitamin D3) 2,000 unit Tablet 2,000 unit PO DAILY Qty: 60 glipizide 5 mg Tablet 5 mg PO QAM Qty: 30 glipizide 5 mg Tablet 7.5 mg PO HS Qty: 45 meloxicam 7.5 mg Tablet 7.5 mg PO DAILY montelukast 10 mg Tablet 10 mg PO HS Qty: 30 omeprazole 40 mg Capsule,Delayed Release(Dr/Ec) 40 mg PO DAILY Qty: 30 quetiapine 50 mg Tablet 50 mg PO HS Qty: 30 Discontinued bupropion HCl (smoking deter) [Zyban] 150 mg Tablet Extended Release 12 Hr 150 mg PO BID buspirone 5 mg Tablet 5 mg PO BID fluconazole 100 mg Tablet 100 mg PO DAILY hydrochlorothiazide 25 mg Tablet 25 mg PO DAILY levofloxacin [Levaquin] 750 mg Tablet 750 mg PO DAILY levothyroxine 25 mcg Tablet 25 mcg PO DAILY levothyroxine 75 mcg Tablet 75 mcg PO DAILY metoprolol tartrate [Lopressor] 50 mg Tablet 50 mg PO BID torsemide 20 mg Tablet 40 mg PO DAILY trazodone 150 mg Tablet 150 mg PO HS Ambulatory Orders / Order Sets / DME: Adjustable Commode 3-in-1 (1 each) (Routine) Timeframe: 99 Months Location: Determined by Patient Ordered By: Issa M [facility] Bed - Manual (1 each) (Routine) Timeframe: 99 Months Location: Determined by Patient Ordered By: Issa Goldman Nebulizer Adult Kit (1 kit) (Routine) Timeframe: 99 Months Location: Determined by Patient Ordered By: Issa M Grieper Oxygen Tank (2 liter) (Routine) Timeframe: 99 Months Facility: [facility] - Location: ONCOLOGY Ordered By: Issa Goldman Walker With Front Wheels (1 each) (Routine) Timeframe: 99 Months Location: Determined by Patient Ordered By: Issa Goldman Referrals: UNKNOWN, [Primary Care Provider] - See Instructions (2 TO 3 DAYS) - Post Discharge Care Plan Care Plan Goals: Discharge Care Plan Goals for Congestive Heart Failure Directions to Meet your Goals: 1. Diet: Limit your salt by doing the following: * Limit canned, dried, packaged, and fast foods. * Don't add salt to your food. * Season foods with herbs instead of salt. * Watch how much liquids you drink. Drinking too much can make heart failure worse. Talk with your health care provider about how much you should drink each day. * Limit the amount of alcohol you drink. It may harm your heart. Women should have no more than 1 drink a day and men should have no more than 2. * When you eat out, request that your meals have no added salt. 2. Activity: * You can benefit from simple activities such as walking or gardening. * Exercising most days of the week can make you feel better. * Don't be discouraged if your progress is slow at first. * Rest as needed. * Stop activity if you develop symptoms such as chest pain, lightheadedness, or significant shortness of breath. * Find activities that you enjoy, such as brisk walking, dancing, swimming, or gardening. These will help you stay active and strengthen your heart. 3. Medicine: * Take your medicines exactly as prescribed. * Learn the names and purpose of each of your medicines. * Keep an accurate medicine list and current dosages with you at all times. Don' t skip doses. * If you miss a dose of your medicine, take it as soon as you remember. * If you miss a dose and it's almost time for your next dose, just wait and take your next dose at the normal time. Don't take a double dose. * If you are unsure, call your doctor's office. Make sure not to mix up your medicines or forget what you've taken the same day. 4. Weight Monitoring: * Weigh yourself every day. A sudden weight gain can mean your heart failure is getting worse. * Weigh yourself at the same time of day and in the same kind of clothes. * Ideally, weigh yourself first thing in the morning after you empty your bladder, but before you eat breakfast. * If your weight goes up by more than 2 pounds in 1 day, 5 pounds in 1 week, or whatever weight gain you were told by your doctor, this is a sign that you are retaining more fluid than you should be. * Clues to weight gain include checking your ankles for swelling, or noticing you are short of breath when you lie down. 5. When to call your doctor: Call your doctor right away if you have any of these signs of worsening heart failure: Sudden weight gain (more than 2 pounds in 1 day or 5 pounds in 1 week, or whatever weight gain you were told to report by your doctor) Trouble breathing not related to being active New or increased swelling of your legs or ankles Swelling or pain in your abdomen Breathing trouble at night (waking up short of breath, needing more pillows to breathe) Frequent coughing that doesn't go away Feeling much more tired than usual 6. Follow up: Do Not miss your follow-up appointment. Keep up with all your appointments and yearly check ups Call 911 right away if you have: Severe shortness of breath, such that you can't catch your breath even while resting Severe chest pain that does not resolve with rest or nitroglycerin [place], foamy mucus with cough and shortness of breath A continuous rapid or irregular heartbeat Passing out or fainting Stroke symptoms such as sudden numbness or weakness on one side of your face , arm, or leg or sudden confusion, trouble speaking or vision changes
--- NOTE | 2018-06-05 15:07 | P.DCO ---
- Diagnosis (1) Respiratory failure with hypoxia and hypercapnia (3) Hypothyroidism - Physical Therapy Order: Evaluate and treat, Improve ambulation, Strength and gait training - Occupational Therapy Order: Evaluate and treat, Improve ADL, Gross motor coordination, Fine motor coordination - Home Health Nursing Order: Medical education, Signs/symptoms of disease process, Oxygen administration education, Medication education-adverse effect, Wound care and dressing changes, Nursing assessment with vital signs - Home Health Aide Order: To assist in: Bathing and personal care, anesthesiologist/physician and meal prep - Certification I have seen patient Teri Power on 06/05/18. My clinical findings support the need for the requested home health care services because: Limited mobility due to disease progression, Patient has SOB, Deconditioned with increased weakness I certify that my clinical findings support that this patient is homebound because: Unsteady gait/balance, Unsafe to leave home unassisted, Need for psychosocial assistance (1) Respiratory failure with hypoxia and hypercapnia Qualifiers: Chronicity: acute on chronic Qualified Code(s): J96.21 - Acute and chronic respiratory failure with hypoxia; J96.22 - Acute and chronic respiratory failure with hypercapnia (3) Hypothyroidism Qualifiers: Hypothyroidism type: due to non-medication exogenous substances Qualified Code(s): E03.2 - Hypothyroidism due to medicaments and other exogenous substances
--- NOTE | 2018-06-05 20:56 | P.PNPL ---
Subjective Interval history: 72 YO Morbidly obese WF with BETTIE,COPD,AF Anxxious Feels hungry Mild SOB On NC Physical Exam Vital signs: Vital Signs 06/05/18 00:00 06/05/18 01:28 06/05/18 03:23 Temperature 97.5 F L Pulse Rate 91 H 87 74 Respiratory Rate 19 Blood Pressure 94/50 L Pulse Oximetry 97 06/05/18 04:00 06/05/18 08:00 06/05/18 11:48 Temperature 97.9 F 97.0 F L Pulse Rate 100 H 114 H Respiratory Rate 18 22 Blood Pressure 103/55 L 106/61 Pulse Oximetry 99 95 95 06/05/18 12:00 06/05/18 16:00 06/05/18 17:47 Temperature 97.4 F L 97.8 F Pulse Rate 103 H 101 H Respiratory Rate 21 21 Blood Pressure 112/60 109/69 Pulse Oximetry 94 L 95 94 L Intake & Output 06/05/18 06/05/18 06/06/18 06:59 18:59 06:59 Intake Total 480 / 480 Output Total 250 / 250 300 / 300 Balance -250 / -250 180 / 180 Weight 154.5 kg Intake: Oral 480 / 480 Output: Urine 250 / 250 300 / 300 Other: # Voids 2 # Incontinent Voids 1 Date of Last Bowel Movement 06/05/18 # Bowel Movements 1 # Incontinent Bowel Movements 2 GENERAL: Morbidly obese WF, NAD SKIN: Warm and dry. HEAD: Normocephalic. EYES: No scleral icterus. No injection or drainage. NECK: Supple, trachea midline. No JVD or lymphadenopathy. CARDIOVASCULAR: Regular rate and rhythm without murmurs, gallops, or rubs. RESPIRATORY: Breath sounds equal bilaterally. No accessory muscle use. GASTROINTESTINAL: Abdomen soft, non-tender, nondistended. MUSCULOSKELETAL: No cyanosis, or edema. BACK: Nontender without obvious deformity. No CVA tenderness. - Urinary Catheter Management Indwelling Urethral Catheter Cath placed during this visit: no Reason for continuing: Not indwelling catheter Assessment and Plan - Plan IMPRESSION: Morbid obesity BETTIE COPD AF PLAN: CPAP at night Aerosol nebs Supplement 02 Diltiazem for rate controll DC Plans underway
[2018-06-05] MEDS: Montelukast 10 MG Tablet PO SCH (22:10)
[2018-06-06] MEDS: Levothyroxine 125 MCG Tablet PO SCH (06:33)
[2018-06-06] MEDS: dilTIAZem 60 MG Tablet PO SCH ×3 (06:33→23:00)
[2018-06-06] MEDS: Metoprolol Tartrate 50 MG Tablet PO SCH ×2 (10:07→23:00)
[2018-06-06] MEDS: Insulin NovoLOG Aspart Correctional Sugar Inj SQ SCH ×4 (10:07→23:08)
[2018-06-06] MEDS: Furosemide 20 MG Tablet PO SCH (10:07)
[2018-06-06] MEDS: Potassium Chloride 25 MEQ Effervescent Tablet PO SCH (10:07)
[2018-06-06] MEDS: Nystatin 100,000 UNITS/GM Powder 15 GM Bottle TOPICAL SCH ×2 (10:08→23:01)
[2018-06-06 12:24] LABS: Baso # (Auto) 0.1 th/mm3 (0.0-0.2); Baso % (Auto) 0.9 % (0.0-2.0); Eos # (Auto) 0.3 th/mm3 (0.0-0.4); Eos % (Auto) 3.6 % (0.0-4.0); Hematocrit 30.8 % (35.0-46.0); Hemoglobin 10.3 gm/dL (11.6-15.3); Lymph # (Auto) 1.8 th/mm3 (1.0-4.8); Lymph % (Auto) 20.5 % (9.0-44.0); Mean Corpuscular HGB Conc 33.3 % (32.0-36.0); Mean Corpuscular Hemoglobin 31.1 pg (27.0-34.0); Mean Corpuscular Volume 93.3 fL (80.0-100.0); Mean Platelet Volume 7.4 fL (7.0-11.0); Mono # (Auto) 1.1 th/mm3 (0.0-0.9); Neut # (Auto) 5.5 th/mm3 (1.8-7.7); Platelet Count 281 th/mm3 (150-450); Red Cell Distribution Width 16.8 % (11.6-17.2); White Blood Count 8.8 th/mm3 (4.0-11.0)
--- NOTE | 2018-06-06 12:31 | P.PNIM ---
Subjective Interval history: 06-03 awake and alert, states "I want to get out of here" states our food is garbage no pain complains good po intake- confirmed with staff nurse and aide- she feeds herself 06-04 will check labs NEEDS PT AND OT WILL NEED PLACEMENT DUE TO POOR MOBILITY DW RN AND PT AND CM 06-05 patient states she WANTS TO GO HOME WITH SON SON WANTS TO TAKE PATIENT STATES SHE HAS HOSPITAL BED AT HOME AND OXYGEN AND NEBULIZER WILL DW CM HOPEFULLY DC TO HOME WILL NEED HHC ETC 06-06 PAPERWORK DONE TO GO HOME WITH FAMILY NEEDS HHC AND HOSPITAL BED AND OXYGEN AND NEBULIZER HOPEFULLY HOME TODAY DW RN AND PT AND CM Physical Exam Vital signs: Vital Signs 06/05/18 16:00 06/05/18 17:47 06/05/18 20:00 Temperature 97.8 F 97.7 F Pulse Rate 101 H 110 H Respiratory Rate 21 19 Blood Pressure 109/69 101/55 L Pulse Oximetry 95 94 L 100 06/06/18 00:00 06/06/18 04:00 06/06/18 08:00 Temperature 98.4 F 97.8 F 98.0 F Pulse Rate 105 H 99 H 106 H Respiratory Rate 17 15 21 Blood Pressure 96/51 L 100/54 L 114/71 Pulse Oximetry 95 95 06/06/18 10:00 Temperature Pulse Rate Respiratory Rate Blood Pressure Pulse Oximetry 97 Intake & Output 06/05/18 06/06/18 06/06/18 18:59 06:59 18:59 Intake Total 480 / 480 420 / 420 Output Total 300 / 300 450 / 450 Balance 180 / 180 -30 / -30 Weight 154.7 kg Intake: Oral 480 / 480 420 / 420 Output: Urine 300 / 300 450 / 450 Other: # Voids 3 # Incontinent Voids 1 Date of Last Bowel Movement 06/05/18 06/05/18 # Incontinent Bowel Movements 2 1 Narrative: GENERAL: Awake alert and oriented 3 talkative --does what she wants to do does not always follow commands SKIN: Warm and dry. HEAD: Atraumatic. Normocephalic. EYES: Pupils equal and round. No scleral icterus. No injection or drainage. EOMI ENT: No nasal bleeding or discharge. Mucous membranes pink and moist. Tongue is midline NECK: Trachea midline. No JVD. Supple CARDIOVASCULAR: IRRegular rate and rhythm. S1-S2 no S3 or S4 RESPIRATORY: No accessory muscle use. Clear to auscultation. Breath sounds equal bilaterally. GASTROINTESTINAL: Abdomen soft, non-tender, nondistended. Hepatic and splenic margins not palpable. Morbid obesity MUSCULOSKELETAL: Extremities without clubbing, cyanosis, or edema. No obvious deformities. NEUROLOGICAL: Awake and alert. No obvious cranial nerve deficits. Motor grossly within normal limits. 4 out of 5 muscle strength in the arms and legs. Normal speech. Moves all 4 extremities PSYCHIATRIC: INAppropriate mood and affect; insight and judgment ABnormal. - Urinary Catheter Management Indwelling Urethral Catheter Cath placed during this visit: no Reason for continuing: Not indwelling catheter Results - Labs CBC & Chem 7: 06/06/18 11:49 06/03/18 09:00 Laboratory Results - last 24 hr 06/05/18 06/05/18 06/06/18 17:00 22:07 07:44 WBC RBC Hgb Hct MCV MCH MCHC RDW Plt Count MPV Neut % (Auto) Lymph % (Auto) [place] % (Auto) Eos % (Auto) Baso % (Auto) Neut # (Auto) Lymph # (Auto) [place] # (Auto) Eos # (Auto) Baso # (Auto) WBC Differential Differential Comment POC Glucose 115 H 115 H 115 H 06/06/18 06/06/18 11:49 11:53 WBC 8.8 RBC 3.30 L Hgb 10.3 L Hct 30.8 L MCV 93.3 MCH 31.1 MCHC 33.3 RDW 16.8 Plt Count 281 MPV 7.4 Neut % (Auto) 63.0 Lymph % (Auto) 20.5 [place] % (Auto) 12.0 H Eos % (Auto) 3.6 Baso % (Auto) 0.9 Neut # (Auto) 5.5 Lymph # (Auto) 1.8 [place] # (Auto) 1.1 H Eos # (Auto) 0.3 Baso # (Auto) 0.1 WBC Differential . Differential Comment Auto diff final POC Glucose 111 H - Imaging Chest X-Ray 05/25/18 00:00 CONCLUSION: Hazy bilateral pleural-parenchymal opacities, likely reflecting alveolar disease and layering effusion. Slight improvement from prior. - Procedures NONE Assessment and Plan - Assessment (1) Respiratory failure with hypoxia and hypercapnia Code(s): J96.91 - Respiratory failure, unspecified with hypoxia; J96.92 - Respiratory failure, unspecified with hypercapnia Status: Acute (2) BETTIE and COPD overlap syndrome Code(s): G47.33 - Obstructive sleep apnea (adult) (pediatric); J44.9 - Chronic obstructive pulmonary disease, unspecified Status: Chronic (3) Hypothyroidism Code(s): E03.9 - Hypothyroidism, unspecified Status: Chronic (4) Increased nutritional needs Code(s): R63.8 - Other symptoms and signs concerning food and fluid intake Status: Chronic (5) Delirium Code(s): R41.0 - Disorientation, unspecified Status: Acute - Plan 72-year-old female admitted secondary to hypoglycemia with renal failure and respiratory failure Encephalopathy Improved. Emotinally labile Impression: Unclear etiology. . Per EMR review, some hypercapnia. Head CT negative 05/14. Hypoglycemia and confusion on admission. No obvious recent electrolyte abnormalities; prior ammonia mildly increased (35 05/19). TSH elevated (50 recently) -repeat ABG - persistent mild hypercapnia, pH 7.47 -on Synthroid 250 mcg daily -Neurology ff -Overall improvement, sedating medications discontinued Acute hypercapnic hypoxemic respiratory failure was placed on BiPAP. Probably Pickwickian syndrome Pulmonary Infiltrate Respiratory status continues to improve Continue supplementation with oxygen and follow clinically Pulmonology ff -BIPAP at night Acute renal failure Impression: Cr 1.5 Continue monitoring renal function Avoid nephrotoxins Lasix switched to 20 mg po daily Sodium electrolyte disturbance- improved Patient has had problems with hypernatremia and hyponatremia Currently balance Monitor sodium levels Hypokalemia- - on Lasix 20 mg daily - restart Potassium at 25 meq po daily- monitor closely- (tendency for hyperkalemia - with CKI) - previously hypokalemia- on replacement bid- K went up to 5.6 then DC - BMP in am UTI. Pseudomonas aeruginosa and E faecium - S.P Cefepime course 05/25 -S/P Zyvox-- Zyvox stopped 05/23 -monitor CBC, UA, C/S -Discussed with ID 05/25 - ;repeat culture negative -Monitor mental status Acute diastolic CHF exacerbation Stabilized Lasix 20 mg daily A. fib RVR - rate controlled Cardiology following Continue metoprolol and Cardizem on Eliquis Hypothyroidism. Impression: TSH 50 05/23; s/p Levothyroxine 500mcg IV. TSH ~[address] Brown ff closely along with us - on Synthroid replacement 250 mcg po daily Diabetes mellitus type 2 Follow blood sugars Insulin sliding scale Diabetic diet Depression- emotionally labile Suicidal intent - Resolved. 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 Psychiatry reconsulted and ff Generalized pain Continue pain Management- limit pain meds Anemia of chronic disease Stabilized for now Follow CBC Cutaneous candidiasis. Course of Diflucan completed; continue Nystatin DVT prophylaxis Continue Eliquis 06/02 po intake- erratic po - depending on emotional state = today ate very well - patient state she does not want a PEG - discuss with her that her previous po intake was poor- I am eating Discharge Planning: DC planning- will need SNF or ask CM to check on home situation or placement DC TO HOME ONCE ALL EQUIPMENT IS AT HOME DW RN AND PT AND CM Code Status: FULL CODE Discussed Condition With: RN AND PT AND CM Discharge Planning: SNF VS HHC (1) Respiratory failure with hypoxia and hypercapnia Qualifiers: Chronicity: acute on chronic Qualified Code(s): J96.21 - Acute and chronic respiratory failure with hypoxia; J96.22 - Acute and chronic respiratory failure with hypercapnia (3) Hypothyroidism Qualifiers: Hypothyroidism type: due to non-medication exogenous substances Qualified Code(s): E03.2 - Hypothyroidism due to medicaments and other exogenous substances
[2018-06-06 12:47] LABS: Albumin 1.8 g/dL (3.4-5.0); Anion Gap 14 meq/L (5-15); Aspartate Aminotransferase 14 U/L (15-37); Blood Urea Nitrogen 31 mg/dL (7-18); Calcium 7.5 mg/dL (8.5-10.1); Carbon Dioxide 26.4 meq/L (21.0-32.0); Chloride 102 meq/L (98-107); Glomerular Filtration Rate 29 mL/min (>89); Glucose,Random 100 mg/dL (74-106); Magnesium 1.1 mg/dL (1.5-2.5); Potassium 3.3 meq/L (3.5-5.1); Sodium 142 meq/L (136-145)
[2018-06-06 12:57] LABS: Alanine Aminotransferase 16 U/L (10-53); Alkaline Phosphatase 96 U/L (45-117); Free T4 (Free Thyroxine) 1.69 ng/dL (0.76-1.46); Phosphorus 5.1 mg/dL (2.5-4.9); Total Protein 5.4 g/dL (6.4-8.2)
[2018-06-06 18:40] LABS: Hemoglobin A1c 4.6 % (4.3-6.0)
[2018-06-06] MEDS: Montelukast 10 MG Tablet PO SCH (23:00)
[2018-06-06] MEDS: Acetaminophen 325 MG Tablet PO PRN (23:01)
[2018-06-07] MEDS: dilTIAZem 60 MG Tablet PO SCH ×2 (05:52→14:45)
[2018-06-07] MEDS: Levothyroxine 125 MCG Tablet PO SCH (05:52)
[2018-06-07] MEDS: Insulin NovoLOG Aspart Correctional Sugar Inj SQ SCH ×3 (09:05→16:58)
[2018-06-07] MEDS: Potassium Chloride 25 MEQ Effervescent Tablet PO SCH (09:06)
[2018-06-07] MEDS: Metoprolol Tartrate 50 MG Tablet PO SCH (09:07)
[2018-06-07] MEDS: Furosemide 20 MG Tablet PO SCH (09:07)
[2018-06-07] MEDS: Nystatin 100,000 UNITS/GM Powder 15 GM Bottle TOPICAL SCH (09:08)
[2018-06-07] MEDS: Acetaminophen 325 MG Tablet PO PRN (09:15)
--- NOTE | 2018-06-07 11:21 | P.PNIM ---
Subjective Interval history: 06-03 awake and alert, states "I want to get out of here" states our food is garbage no pain complains good po intake- confirmed with staff nurse and aide- she feeds herself 06-04 will check labs NEEDS PT AND OT WILL NEED PLACEMENT DUE TO POOR MOBILITY DW RN AND PT AND CM 06-05 patient states she WANTS TO GO HOME WITH SON SON WANTS TO TAKE PATIENT STATES SHE HAS HOSPITAL BED AT HOME AND OXYGEN AND NEBULIZER WILL DW CM HOPEFULLY DC TO HOME WILL NEED HHC ETC 06-06 PAPERWORK DONE TO GO HOME WITH FAMILY NEEDS HHC AND HOSPITAL BED AND OXYGEN AND NEBULIZER HOPEFULLY HOME TODAY DW RN AND PT AND CM 06-07 AWAIT BED TO BE DELIVERED HOPEFULLY DC TO HOME TODAY SWITCH FROM EFFERVESCENT POTASSIUM TO TABLET DC TO HOME ONCE EVERYTHING IS SET UP ALREADY DCED 2 DAYS AGO Physical Exam Vital signs: Vital Signs 06/06/18 12:00 06/06/18 16:00 06/06/18 17:29 Temperature 97.6 F 97.4 F L Pulse Rate 91 H 72 Respiratory Rate 20 21 Blood Pressure 106/68 118/67 Pulse Oximetry 94 L 94 L 97 06/06/18 20:00 06/07/18 00:00 06/07/18 04:00 Temperature 97.8 F 98.3 F 97.5 F L Pulse Rate 112 H 100 H 101 H Respiratory Rate 20 20 20 Blood Pressure 104/58 L 108/62 105/57 L Pulse Oximetry 99 97 100 06/07/18 08:00 Temperature 97.4 F L Pulse Rate 110 H Respiratory Rate 22 Blood Pressure 110/53 L Pulse Oximetry 99 Intake & Output 06/06/18 06/07/18 06/07/18 18:59 06:59 18:59 Intake Total 600 / 600 0 / 0 Output Total 650 / 650 Balance 600 / 600 -650 / -650 Weight 152.1 kg Intake: Oral 600 / 600 0 / 0 Output: Urine 650 / 650 Other: # Incontinent Voids 3 Date of Last Bowel Movement 06/05/18 06/05/18 # Bowel Movements 0 Narrative: GENERAL: Awake alert and oriented 3 talkative --does what she wants to do does not always follow commands SKIN: Warm and dry. HEAD: Atraumatic. Normocephalic. EYES: Pupils equal and round. No scleral icterus. No injection or drainage. EOMI ENT: No nasal bleeding or discharge. Mucous membranes pink and moist. Tongue is midline NECK: Trachea midline. No JVD. Supple CARDIOVASCULAR: IRRegular rate and rhythm. S1-S2 no S3 or S4 RESPIRATORY: No accessory muscle use. Clear to auscultation. Breath sounds equal bilaterally. GASTROINTESTINAL: Abdomen soft, non-tender, nondistended. Hepatic and splenic margins not palpable. Morbid obesity MUSCULOSKELETAL: Extremities without clubbing, cyanosis, or edema. No obvious deformities. NEUROLOGICAL: Awake and alert. No obvious cranial nerve deficits. Motor grossly within normal limits. 4 out of 5 muscle strength in the arms and legs. Normal speech. Moves all 4 extremities PSYCHIATRIC: INAppropriate mood and affect; insight and judgment ABnormal. - Urinary Catheter Management Indwelling Urethral Catheter Cath placed during this visit: no Reason for continuing: Not indwelling catheter Results - Labs CBC & Chem 7: 06/06/18 11:49 06/06/18 11:49 Laboratory Results - last 24 hr 06/06/18 06/06/18 06/06/18 11:49 11:49 11:49 WBC 8.8 RBC 3.30 L Hgb 10.3 L Hct 30.8 L MCV 93.3 MCH 31.1 MCHC 33.3 RDW 16.8 Plt Count 281 MPV 7.4 Neut % (Auto) 63.0 Lymph % (Auto) 20.5 [place] % (Auto) 12.0 H Eos % (Auto) 3.6 Baso % (Auto) 0.9 Neut # (Auto) 5.5 Lymph # (Auto) 1.8 [place] # (Auto) 1.1 H Eos # (Auto) 0.3 Baso # (Auto) 0.1 WBC Differential . Differential Comment Auto diff final Sodium 142 Potassium 3.3 L Chloride 102 Carbon Dioxide 26.4 Anion Gap 14 BUN 31 H Creatinine 1.73 H Estimated GFR 29 L POC Glucose Random Glucose 100 Hemoglobin A1c 4.6 Calcium 7.5 L Phosphorus 5.1 H Magnesium 1.1 L Total Bilirubin 0.6 AST 14 L ALT 16 Alkaline Phosphatase 96 Total Protein 5.4 L Albumin 1.8 L TSH 8.780 H Free T4 1.69 H 06/06/18 06/06/18 06/06/18 11:53 17:14 23:04 WBC RBC Hgb Hct MCV MCH MCHC RDW Plt Count MPV Neut % (Auto) Lymph % (Auto) [place] % (Auto) Eos % (Auto) Baso % (Auto) Neut # (Auto) Lymph # (Auto) [place] # (Auto) Eos # (Auto) Baso # (Auto) WBC Differential Differential Comment Sodium Potassium Chloride Carbon Dioxide Anion Gap BUN Creatinine Estimated GFR POC Glucose 111 H 111 H 103 Random Glucose Hemoglobin A1c Calcium Phosphorus Magnesium Total Bilirubin AST ALT Alkaline Phosphatase Total Protein Albumin TSH Free T4 06/07/18 07:41 WBC RBC Hgb Hct MCV MCH MCHC RDW Plt Count MPV Neut % (Auto) Lymph % (Auto) [place] % (Auto) Eos % (Auto) Baso % (Auto) Neut # (Auto) Lymph # (Auto) [place] # (Auto) Eos # (Auto) Baso # (Auto) WBC Differential Differential Comment Sodium Potassium Chloride Carbon Dioxide Anion Gap BUN Creatinine Estimated GFR POC Glucose 114 H Random Glucose Hemoglobin A1c Calcium Phosphorus Magnesium Total Bilirubin AST ALT Alkaline Phosphatase Total Protein Albumin TSH Free T4 - Imaging Chest X-Ray 05/25/18 00:00 CONCLUSION: Hazy bilateral pleural-parenchymal opacities, likely reflecting alveolar disease and layering effusion. Slight improvement from prior. - Procedures NONE Assessment and Plan - Assessment (1) Respiratory failure with hypoxia and hypercapnia Code(s): J96.91 - Respiratory failure, unspecified with hypoxia; J96.92 - Respiratory failure, unspecified with hypercapnia Status: Acute (2) BETTIE and COPD overlap syndrome Code(s): G47.33 - Obstructive sleep apnea (adult) (pediatric); J44.9 - Chronic obstructive pulmonary disease, unspecified Status: Chronic (3) Hypothyroidism Code(s): E03.9 - Hypothyroidism, unspecified Status: Chronic (4) Increased nutritional needs Code(s): R63.8 - Other symptoms and signs concerning food and fluid intake Status: Chronic (5) Delirium Code(s): R41.0 - Disorientation, unspecified Status: Acute - Plan 72-year-old female admitted secondary to hypoglycemia with renal failure and respiratory failure Encephalopathy Improved. Emotinally labile Impression: Unclear etiology. . Per EMR review, some hypercapnia. Head CT negative 05/14. Hypoglycemia and confusion on admission. No obvious recent electrolyte abnormalities; prior ammonia mildly increased (35 05/19). TSH elevated (50 recently) -repeat ABG - persistent mild hypercapnia, pH 7.47 -on Synthroid 250 mcg daily -Neurology ff -Overall improvement, sedating medications discontinued Acute hypercapnic hypoxemic respiratory failure was placed on BiPAP. Probably Pickwickian syndrome Pulmonary Infiltrate Respiratory status continues to improve Continue supplementation with oxygen and follow clinically Pulmonology ff -BIPAP at night Acute renal failure Impression: Cr 1.5 Continue monitoring renal function Avoid nephrotoxins Lasix switched to 20 mg po daily Sodium electrolyte disturbance- improved Patient has had problems with hypernatremia and hyponatremia Currently balance Monitor sodium levels Hypokalemia- - on Lasix 20 mg daily - restart Potassium at 25 meq po daily- monitor closely- (tendency for hyperkalemia - with CKI) - previously hypokalemia- on replacement bid- K went up to 5.6 then DC - BMP in am UTI. Pseudomonas aeruginosa and E faecium - S.P Cefepime course 05/25 -S/P Zyvox-- Zyvox stopped 05/23 -monitor CBC, UA, C/S -Discussed with ID 05/25 - ;repeat culture negative -Monitor mental status Acute diastolic CHF exacerbation Stabilized Lasix 20 mg daily A. fib RVR - rate controlled Cardiology following Continue metoprolol and Cardizem on Eliquis Hypothyroidism. Impression: TSH 50 05/23; s/p Levothyroxine 500mcg IV. TSH ~[address] Brown ff closely along with us - on Synthroid replacement 250 mcg po daily Diabetes mellitus type 2 Follow blood sugars Insulin sliding scale Diabetic diet Depression- emotionally labile Suicidal intent - Resolved. 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 Psychiatry reconsulted and ff Generalized pain Continue pain Management- limit pain meds Anemia of chronic disease Stabilized for now Follow CBC Cutaneous candidiasis. Course of Diflucan completed; continue Nystatin DVT prophylaxis Continue Eliquis 06/02 po intake- erratic po - depending on emotional state = today ate very well - patient state she does not want a PEG - discuss with her that her previous po intake was poor- I am eating Discharge Planning: DC planning- will need SNF or ask CM to check on home situation or placement DC TO HOME ONCE ALL EQUIPMENT IS AT HOME DW RN AND PT AND CM 7-19 CM STILL NOT SET UP EVERYTHING PER [employer] HAS BEEN DCED ALREADY Code Status: FULL CODE Discussed Condition With: RN AND PT AND CM Discharge Planning: [facility] AWAIT BED DELIVERY PER [employer] ETC (1) Respiratory failure with hypoxia and hypercapnia Qualifiers: Chronicity: acute on chronic Qualified Code(s): J96.21 - Acute and chronic respiratory failure with hypoxia; J96.22 - Acute and chronic respiratory failure with hypercapnia (3) Hypothyroidism Qualifiers: Hypothyroidism type: due to non-medication exogenous substances Qualified Code(s): E03.2 - Hypothyroidism due to medicaments and other exogenous substances
--- NOTE | 2018-06-07 17:11 | P.PNPL ---
Subjective Interval history: 72 YO Morbidly obese WF with BETTIE,COPD,AF Anxious Mild SOB On NC Anxious to go home Physical Exam Vital signs: Vital Signs 06/06/18 17:29 06/06/18 20:00 06/07/18 00:00 Temperature 97.8 F 98.3 F Pulse Rate 112 H 100 H Respiratory Rate 20 20 Blood Pressure 104/58 L 108/62 Pulse Oximetry 97 99 97 06/07/18 04:00 06/07/18 08:00 06/07/18 12:00 Temperature 97.5 F L 97.4 F L 97.7 F Pulse Rate 101 H 110 H 87 Respiratory Rate 20 22 20 Blood Pressure 105/57 L 110/53 L 105/57 L Pulse Oximetry 100 99 98 06/07/18 13:33 06/07/18 14:09 Temperature Pulse Rate 87 Respiratory Rate Blood Pressure Pulse Oximetry 98 Intake & Output 06/06/18 06/07/18 06/07/18 18:59 06:59 18:59 Intake Total 600 / 600 0 / 0 Output Total 650 / 650 Balance 600 / 600 -650 / -650 Weight 152.1 kg Intake: Oral 600 / 600 0 / 0 Output: Urine 650 / 650 Other: # Voids 2 # Incontinent Voids 3 Date of Last Bowel Movement 06/05/18 06/05/18 # Bowel Movements 0 1 GENERAL: Anxious female, NAD SKIN: Warm and dry. HEAD: Normocephalic. EYES: No scleral icterus. No injection or drainage. NECK: Supple, trachea midline. No JVD or lymphadenopathy. CARDIOVASCULAR: Regular rate and rhythm without murmurs, gallops, or rubs. RESPIRATORY: Breath sounds equal bilaterally. No accessory muscle use. GASTROINTESTINAL: Abdomen soft, non-tender, nondistended. MUSCULOSKELETAL: No cyanosis, or edema. BACK: Nontender without obvious deformity. No CVA tenderness. - Urinary Catheter Management Indwelling Urethral Catheter Cath placed during this visit: no Reason for continuing: Not indwelling catheter Assessment and Plan - Plan IMPRESSION: Morbid obesity BETTIE COPD AF PLAN: CPAP at night Aerosol nebs Supplement 02 Diltiazem for rate controll DC Plans underway Stable from Pulm standpoint.
== END 2018-06-07 17:35 | disposition home health service (06) ==
LOC: HIMC 17:15 → N04 05-20 20:34
PROVIDERS: ADMIT Internal Medicine; ATTEND Internal Medicine